=== PATIENT | female | born 1960 | race Caucasian/White ===

== ENCOUNTER 2020-08-25 18:11 | Emergency (ER) | payer OTHER, SELFPAY ==
--- NOTE | ~2020-08-25 | CT_ITS ---
EXAMINATION: CT HEAD WITHOUT CONTRAST CT CERVICAL SPINE WITHOUT CONTRAST CLINICAL INFORMATION: Trauma COMPARISON: None. TECHNIQUE: Multidetector CT imaging of the head and cervical spine was performed without the use of intravenous contrast. Multiplanar reformats are reviewed. This CT examination was performed using dose optimization techniques as appropriate, variously including the following: *Automated exposure control *Adjustment of mA and/or kV according to patient size (this includes techniques or standardized protocols for targeted exams where dose is matched to indication/reason for exam; i.e. extremities or head) *Use of iterative reconstruction technique DLP: 964 mGy-cm. FINDINGS: Acute subdural hematoma present along the right falx cerebri from the mid frontal convexity posteriorly, extending along the superior aspect of the right tentorium. The falcine component measures up to 6 mm in thickness, while the tentorial component measures up to 3 mm in thickness. No subarachnoid or intraparenchymal hemorrhage. There is no evidence of acute territorial infarction. No abnormal mass effect or midline shift is seen. Gonzalez to white matter differentiation is well preserved. No extra-axial fluid collections are identified. The ventricles are normal in size. There is no abnormal attenuation within the brain parenchyma. The osseous structures and soft tissues are normal. The mastoid air cells and visualized portions of the paranasal sinuses are well-aerated. Atlantooccipital alignment is maintained. The vertebral bodies and posterior elements align normally. No acute fracture or subluxation. Vertebral body heights are preserved. Small endplate osteophytes present throughout the cervical spine. Loss of disc space height present at C4-C5, C5-C6 and C6-C7. There is mild bilateral foraminal narrowing at C4-C5 and C5-C6 and mild left foraminal narrowing at C6-C7.. The paraspinal soft tissues are unremarkable. The imaged lung apices are clear CT/CT cervical spine wo con IMPRESSION: * Acute subdural hematoma along the right falx and superior to the right tentorium as described. * No subarachnoid or intraparenchymal hemorrhage. * No cervical spine fracture or malalignment. This critical result was discussed with Nishant Trinh MD at 08/25/2020 9:17 PM and it was ascertained that the content and urgency of the report was understood at the time of direct communication.
--- NOTE | ~2020-08-25 | XR_ITS ---
EXAMINATION: XR CHEST CLINICAL INFORMATION: Fall. COMPARISON: None TECHNIQUE: Frontal view of the chest was obtained. FINDINGS: The lungs are clear. The cardiomediastinal silhouette is normal in size. There is no pleural effusion or pneumothorax. No acute osseous abnormality. XR/XR chest 1V IMPRESSION: No acute cardiopulmonary findings.
[2020-08-25 18:44] VITALS: RESP 22; BMI 19.7
[2020-08-25] MEDS: LORazepam 2 MG/ML VIAL IM (18:44)
--- NOTE | 2020-08-25 18:57 | ECG_ITS ---
Test Reason : AMS Blood Pressure : / mmHG Vent. Rate : 078 BPM Atrial Rate : 078 BPM P-R Int : 168 ms QRS Dur : 090 ms QT Int : 386 ms P-R-T Axes : 071 067 055 degrees QTc Int : 440 ms Normal sinus rhythm Possible Left atrial enlargement Borderline ECG No previous ECGs available Referred By: Nishant Trinh Electronically Signed By:DARIUS DAY
[2020-08-25] MEDS: Haloperidol Lactate 5 MG/ML VIAL IM (19:09)
--- NOTE | 2020-08-25 19:11 | PC.NURSE ---
Pt medicated with Ativan and Haldol to facilitate a CT due to contusion/bleeding from right advent. Pt remains agitated and altered at this time, hitting and grabbing at staff. Although orders are in for pt, unable to complete any at this time due to mental status.
[2020-08-25 19:30] VITALS: RESP 20
[2020-08-25 20:06] LABS: MANUAL DIFF FLAG NO
[2020-08-25 20:08] LABS: Basophils Percent Auto 0.9 % (0-2); Eosinophils Percent Auto 0.9 % (0-4); Hematocrit 38.5 % (37-47); Hemoglobin 12.4 g/dl (12.0-16.0); Lymphocytes Percent Auto 21.6 % (20-40); Mean Corpuscular HGB Conc 32.2 g/dl (31.0-35.0); Mean Corpuscular Hemoglobin 30.9 pg (27.0-33.0); Mean Platelet Volume 10.1 fL (9.4-12.3); Monocytes Absolute Auto 0.3 X10*3/uL (0.1-1.2); Monocytes Percent Auto 7.1 % (2-11); Neutrophils Absolute Auto 3.1 X10*3/uL (2.0-8.3); Neutrophils Percent Auto 69.5 % (45-73); Platelet Count 262 X10*3/uL (160-400); Red Blood Count 4.01 X10*6/uL (4.20-5.50); Red Cell Distribution Width 13.9 % (11.0-16.0); White Blood Count 4.5 X10*3/uL (4.8-10.8)
[2020-08-25 20:25] LABS: COVID-19 Test Negative (Negative); Ethanol 339 mg/dL
[2020-08-25 20:42] LABS: Alanine Aminotransferase 9 U/L (0-31); Alkaline Phosphatase 65 U/L (39-117); Anion Gap 22 (12-20); Aspartate Amino Transferase 27 U/L (5-31); Bilirubin Direct < 0.2 mg/dL (0.0-0.5); Bilirubin Total < 0.2 mg/dL (0.0-1.0); Blood Urea Nitrogen 17 mg/dL (9-16); Calcium 8.6 mg/dL (8.4-10.2); Carbon Dioxide 19 mmol/L (22-29); Chloride 101 mmol/L (96-108); Creatinine Clr Calc Pharmacy 61.5; Estimated Glomerular Filt Rate > 60; Glucose Random 101 mg/dL (60-115); Potassium 3.9 mmol/L (3.3-5.1); Sodium 138 mmol/L (135-145); Total Protein 6.8 g/dL (6.5-8.0)
[2020-08-25 21:00] VITALS: BP 95/47; PULSE 75; RESP 16; O2SAT 94
--- NOTE | 2020-08-25 21:06 | PC.NURSE ---
Pt returns from CT, remains drowsy at this time. EKG obtained by this RN. Continue to monitor.
--- NOTE | 2020-08-25 21:15 | PC.NURSE ---
Cervical collar applied.
[2020-08-25] MEDS: ondansetron HCL 4 MG/2 ML VIAL IVPUSH (21:24)
[2020-08-25 21:26] LABS: INTERNATIONAL NORM RATIO 1.1 (0.9-1.1); Prothrombin Time 12.5 SEC (10.8-13.0)
[2020-08-25 21:28] LABS: Partial Thromboplastin Time 36.9 SEC (24.1-38.0)
--- NOTE | 2020-08-25 21:36 | ED.ALCOHOL ---
HPI - Alcohol General Chief Complaint: ETOH/Substance Use Stated Complaint: etoh, fall Time Seen by Provider: 08/25/20 18:38 Source: EMS Mode of arrival: EMS Limitations: altered mental status History of Present Illness HPI narrative: Patient intoxicated was found by a bystander lying in the yard of somebody else house with small abrasion on the right side of forehead very intoxicated on arrival unwilling to bring forth any information about her agitated and combative with the staff no other details available MD complaint: alcohol intoxication Related Data Allergies Allergy/AdvReac Type Severity Reaction Status Date / Time No Known Allergies Allergy Verified 08/25/20 18:39 Review of Systems Review of Systems: Yes Unobtainable due to mental status [facility] Past Medical History Source: unable to obtain Medical History (Updated 08/25/20 @ 21:53 by Nishant Trinh MD) No known health problems Social History Social History Advance Directives: No Physical Exam Vital Signs: Vital Signs: Last Vital Signs Pulse 76 08/25/20 21:47 Resp 14 08/25/20 21:47 BP 109/67 08/25/20 21:47 Pulse Ox 94 08/25/20 21:47 Body Mass Index 19.7 Const: General: well developed, alert, awake, combative and intoxicated appearing HENMT: Head: Yes No palpable skull fracture present, Yes normocephalic and Yes abrasion (Right frontal) Head images: 1. Abrasion right frontal area Ears: hearing grossly normal bilaterally, external ears normal and TM's normal bilaterally General nose exam: Normal external nose present Mouth: Normal oral and palatal mucosa present and oropharynx normal Eyes: General: appearance normal, both eyes and all related structures Conjunctivae: conjunctivae normal Sclerae: sclerae normal Pupils: Equal, round and reactive pupils present EOM: EOMs intact bilaterally Neck: Neck: Yes normal visual inspection, Yes full ROM, No midline deformity and No tender Carotids: normal carotid upstroke Chest: Chest palpation & inspection: normal inspection of the chest and normal palpation of entire chest wall Resp: Effort & Inspection: normal respiratory effort Auscultation: clear to auscultation bilaterally Cardio: Palpation: normal PMI Rate: regular rate Rhythm: regular rhythm Heart sounds: S1 normal heart sound present and S2 normal heart sound present Peripheral pulses: Peripheral pulses 2+ throughout GI: Inspection: Yes normal to inspection Palpation (GI): Soft to palpation, nontender, not rigid and no hepatomegaly Auscultation: normal bowel sounds : General: Yes no CVA tenderness Back/Spine/Pelvis: Back: no CVA tenderness Thoracic/Lumbar Spine: thoracic and lumbar spine normal to inspection, No thoracic spinal tenderness and No lumbar spinal tenderness Skin: General skin exam: no rashes or lesions noted Neuro: Other: Limited exam because of patient been very combative no focal deficit noticed General: moves all extremities and no focal motor deficits Cranial nerves: Yes Equal, round and reactive pupils present Extrem: General: Yes normal to inspection and Yes full ROM MDM - Alcohol MDM Narrative Medical decision making narrative: Patient alcohol intoxicated details of past medical history and scenario is not very clear patient was very intoxicated and agitated on arrival had to give 5 mg of Haldol and 2 mg of Ativan IM, CT scan of the head showed acute subdural bleed infarcts cerebri and right tentorium without any significant midline shift. Patient alcohol level is elevated 339. No other significant injuries notice fast examination of abdomen is negative chest x-ray also negative case discussed with trauma surgeon Dr. Bravo will take the patient for evaluation Lab Data Attestation: I reviewed the patient's lab results. Result diagrams: 08/25/20 19:59 08/25/20 19:59 Labs: Lab Results 08/25/20 08/25/20 08/25/20 Range/Units 19:59 19:59 19:59 WBC 4.5 L (4.8-10.8) X10*3/uL RBC 4.01 L (4.20-5.50) X10*6/uL Hgb 12.4 (12.0-16.0) g/dl Hct 38.5 (37-47) % MCV 96.0 (80-98) fL MCH 30.9 (27.0-33.0) pg MCHC 32.2 (31.0-35.0) g/dl RDW 13.9 (11.0-16.0) % Plt Count 262 (160-400) X10*3/uL MPV 10.1 (9.4-12.3) fL Immature Gran % (Auto) 0.0 (0.0-0.4) % Neut % (Auto) 69.5 (45-73) % Lymph % (Auto) 21.6 (20-40) % [place] % (Auto) 7.1 (2-11) % Eos % (Auto) 0.9 (0-4) % Baso % (Auto) 0.9 (0-2) % Lymph # (Auto) 1.0 L (1.2-4.9) X10*3/uL [place] # (Auto) 0.3 (0.1-1.2) X10*3/uL Eos # (Auto) 0.0 (0.0-0.4) X10*3/uL Baso # (Auto) 0.0 (0.0-0.2) X10*3/uL Abs Immat Gran (auto) 0.00 (0.00-0.03) X10*3/uL Absolute Neuts (auto) 3.1 (2.0-8.3) X10*3/uL Absolute Nucleated RBC 0.000 (0.0-0.012) X10*3/uL Nucleated RBC % (auto) 0.0 (0.0-0.2) /100WBC PT (10.8-13.0) SEC INR (0.9-1.1) APTT (24.1-38.0) SEC Hold Blue Top Sodium 138 (135-145) mmol/L Potassium 3.9 (3.3-5.1) mmol/L Chloride 101 (96-108) mmol/L Carbon Dioxide 19 L (22-29) mmol/L Anion Gap 22 H (12-20) BUN 17 H (9-16) mg/dL Creatinine 0.81 (0.5-1.4) mg/dL Estim Creat Clear Calc 61.5 Estimated GFR > 60 Random Glucose 101 (60-115) mg/dL Calcium 8.6 (8.4-10.2) mg/dL Total Bilirubin < 0.2 (0.0-1.0) mg/dL Direct Bilirubin < 0.2 (0.0-0.5) mg/dL AST 27 (5-31) U/L ALT 9 (0-31) U/L Alkaline Phosphatase 65 (39-117) U/L Total Protein 6.8 (6.5-8.0) g/dL Albumin 4.0 (3.5-5.0) g/dL Ethyl Alcohol mg/dL COVID-19 (BASSEM) Negative (Negative) COVID-19 Clin Com See Note 08/25/20 08/25/20 Range/Units 19:59 19:59 WBC (4.8-10.8) X10*3/uL RBC (4.20-5.50) X10*6/uL Hgb (12.0-16.0) g/dl Hct (37-47) % MCV (80-98) fL MCH (27.0-33.0) pg MCHC (31.0-35.0) g/dl RDW (11.0-16.0) % Plt Count (160-400) X10*3/uL MPV (9.4-12.3) fL Immature Gran % (Auto) (0.0-0.4) % Neut % (Auto) (45-73) % Lymph % (Auto) (20-40) % [place] % (Auto) (2-11) % Eos % (Auto) (0-4) % Baso % (Auto) (0-2) % Lymph # (Auto) (1.2-4.9) X10*3/uL [place] # (Auto) (0.1-1.2) X10*3/uL Eos # (Auto) (0.0-0.4) X10*3/uL Baso # (Auto) (0.0-0.2) X10*3/uL Abs Immat Gran (auto) (0.00-0.03) X10*3/uL Absolute Neuts (auto) (2.0-8.3) X10*3/uL Absolute Nucleated RBC (0.0-0.012) X10*3/uL Nucleated RBC % (auto) (0.0-0.2) /100WBC PT 12.5 (10.8-13.0) SEC INR 1.1 (0.9-1.1) APTT 36.9 (24.1-38.0) SEC Hold Blue Top SEE NOTE Sodium (135-145) mmol/L Potassium (3.3-5.1) mmol/L Chloride (96-108) mmol/L Carbon Dioxide (22-29) mmol/L Anion Gap (12-20) BUN (9-16) mg/dL Creatinine (0.5-1.4) mg/dL Estim Creat Clear Calc Estimated GFR Random Glucose (60-115) mg/dL Calcium (8.4-10.2) mg/dL Total Bilirubin (0.0-1.0) mg/dL Direct Bilirubin (0.0-0.5) mg/dL AST (5-31) U/L ALT (0-31) U/L Alkaline Phosphatase (39-117) U/L Total Protein (6.5-8.0) g/dL Albumin (3.5-5.0) g/dL Ethyl Alcohol 339 H* mg/dL COVID-19 (BASSEM) (Negative) COVID-19 Clin Com Imaging Data CT scan - head: Radiologist's impression: EXAMINATION: CT HEAD WITHOUT CONTRAST CT CERVICAL SPINE WITHOUT CONTRAST CLINICAL INFORMATION: Trauma COMPARISON: None. TECHNIQUE: Multidetector CT imaging of the head and cervical spine was performed without the use of intravenous contrast. Multiplanar reformats are reviewed. This CT examination was performed using dose optimization techniques as appropriate, variously including the following: *Automated exposure control *Adjustment of mA and/or kV according to patient size (this includes techniques or standardized protocols for targeted exams where dose is matched to indication/reason for exam; i.e. extremities or head) *Use of iterative reconstruction technique DLP: 964 mGy-cm. FINDINGS: Acute subdural hematoma present along the right falx cerebri from the mid frontal convexity posteriorly, extending along the superior aspect of the right tentorium. The falcine component measures up to 6 mm in thickness, while the tentorial component measures up to 3 mm in thickness. No subarachnoid or intraparenchymal hemorrhage. There is no evidence of acute territorial infarction. No abnormal mass effect or midline shift is seen. Gonzalez to white matter differentiation is well preserved. No extra-axial fluid collections are identified. The ventricles are normal in size. There is no abnormal attenuation within the brain parenchyma. The osseous structures and soft tissues are normal. The mastoid air cells and visualized portions of the paranasal sinuses are well-aerated. Atlantooccipital alignment is maintained. The vertebral bodies and posterior elements align normally. No acute fracture or subluxation. Vertebral body heights are preserved. Small endplate osteophytes present throughout the cervical spine. Loss of disc space height present at C4-C5, C5-C6 and C6-C7. There is mild bilateral foraminal narrowing at C4-C5 and C5-C6 and mild left foraminal narrowing at C6-C7.. The paraspinal soft tissues are unremarkable. The imaged lung apices are clear CT/CT head/brain wo con IMPRESSION: * Acute subdural hematoma along the right falx and superior to the right tentorium as described. * No subarachnoid or intraparenchymal hemorrhage. * No cervical spine fracture or malalignment. This critical result was discussed with Nishant Trinh MD at 08/25/2020 9:17 PM and it was ascertained that the content and urgency of the report was understood at the time of direct communication. Dictated By:GARCÍA MONTEZ MDSigned By:<Electronically signed by GARCÍA MONTEZ MD in OV> Chest x-ray: Radiologist's impression: [address] [id number] ReportSigned Patient: Marc Guzman#: [id number]: 1960cct:[id number]/Sex: 60 / FADM Date: 08/25/20Loc: HO.EDAttending Dr: Ordering Physician: Nishant Trinh MD Date of Service: 08/25/20 Procedure(s): XR chest 1V Accession Number(s): [id number] cc: Nishant Trinh MD~ EXAMINATION: XR CHEST CLINICAL INFORMATION: Fall. COMPARISON: None TECHNIQUE: Frontal view of the chest was obtained. FINDINGS: The lungs are clear. The cardiomediastinal silhouette is normal in size. There is no pleural effusion or pneumothorax. No acute osseous abnormality. XR/XR chest 1V IMPRESSION: No acute cardiopulmonary findings. ECG Data Attestation: I personally reviewed and interpreted this ECG as follows: Interpretation: Normal sinus rhythm ventricular rate 78 beats per minute no acute ST T wave changes normal intervals no acute ischemia Discharge Plan Discharge Clinical Impression: Alcoholic intoxication Qualifiers: Complication of substance-induced condition: uncomplicated Qualified Code(s): F10.920 - Alcohol use, unspecified with intoxication, uncomplicated Subdural hemorrhage following injury Qualifiers: Encounter type: initial encounter Patient Disposition: [facility] Transfer Details: Patient to be transferred to [facility] for further evaluation
[2020-08-25] MEDS: 0.9 % Sodium Chloride 1,000 ML 999 ML IVCONT (21:44)
--- NOTE | 2020-08-25 21:44 | PC.NURSE ---
Plan to transfer to [facility] due to subdural bleed. 2 IVs established, IVF infusing, pt medicated with Zofran due to N/V. Pt remains very drowsy, unable to answer questions, but grinding teeth/clenching jaw at times. VSS, O2 sat 94% on RA. VSS. CXR at bedside. Awaiting EMS for transfer.
[2020-08-25 21:47] VITALS: BP 109/67; PULSE 76; RESP 14; O2SAT 94
--- NOTE | 2020-08-25 21:52 | PC.NURSE ---
This RN calling [facility] to give nurse to nurse report prior to transfer. EMS en route.
--- NOTE | 2020-08-25 22:01 | PC.NURSE ---
Report given to MISHA Burris at [facility]. EMS at bedside for transport.
--- NOTE | 2020-08-25 22:12 | PC.NURSE ---
16F vasquez inserted by MISHA Marshall. 1000 ml of UO noted.
== END 2020-08-25 22:13 | disposition short-term general hospital (02) ==
PROVIDERS: Emergency Provider Internal Medicine
DX: S06.5X9A Traumatic subdural hemorrhage with loss of consciousness of unspecified duration, initial encounter (principal); S00.81XA Abrasion of other part of head, initial encounter; X58.XXXA Exposure to other specified factors, initial encounter; F10.920 Alcohol use, unspecified with intoxication, uncomplicated; Y90.8 Blood alcohol level of 240 mg/100 ml or more; R45.1 Restlessness and agitation; Z20.822 Contact with and (suspected) exposure to COVID-19; Y93.9 Activity, unspecified; Y92.096 Garden or yard of other non-institutional residence as the place of occurrence of the external cause; Y99.9 Unspecified external cause status
CPT/HCPCS: 36415; 51702; 70450; 71045; 72125; 80048; 80076; 80320; 85025; 85610; 85730; 87635; 93005; 96361; 96372; 96374; 99285; J2060; J2405

== ENCOUNTER 2020-09-03 18:28 | Emergency (ER) | payer OTHER, SELFPAY ==
--- NOTE | ~2020-09-03 | CT_ITS ---
EXAMINATION: CT HEAD WITHOUT CONTRAST CLINICAL INFORMATION: Altered mental status. COMPARISON: CT head August 25, 2020 TECHNIQUE: Contiguous axial imaging was performed from the skull base to vertex without intravenous administration of contrast. This CT examination was performed using dose optimization techniques as appropriate, variously including the following: *Automated exposure control *Adjustment of mA and/or kV according to patient size (this includes techniques or standardized protocols for targeted exams where dose is matched to indication/reason for exam; i.e. extremities or head) *Use of iterative reconstruction technique DLP: 670 mGy-cm FINDINGS: Exam limited. There is motion on all slice images. On the CT study of August 25, 2020 acute subdural hematoma present along the right falx and right tentorium. This hemorrhage is likely still present and unchanged since prior study. Coronal image 145/203 series 7. Would recommend repeat exam when patient able to tolerate. CT/CT head/brain wo con IMPRESSION: Exam limited by patient motion. Redemonstration of intracranial hemorrhage along the right falx and right tentorium similar to CT study of August 25, 2020. Would recommend repeat exam when patient able to tolerate.
--- NOTE | ~2020-09-03 | XR_ITS ---
EXAMINATION: XR CHEST CLINICAL INFORMATION: Altered mental status COMPARISON: Chest x-ray on 08/25/2020 TECHNIQUE: Frontal view of the chest was obtained. FINDINGS: No significant abnormality is noted involving the heart, lungs, mediastinum, bony thorax or soft tissues. XR/XR chest 1V IMPRESSION: Unremarkable examination.
[2020-09-03 18:51] VITALS: RESP 18; BMI 26.6
--- NOTE | 2020-09-03 18:54 | PC.NURSE ---
emergency contact ba [phone]
--- NOTE | 2020-09-03 19:09 | ECG_ITS ---
Test Reason : FALL Blood Pressure : / mmHG Vent. Rate : 088 BPM Atrial Rate : 088 BPM P-R Int : 132 ms QRS Dur : 088 ms QT Int : 358 ms P-R-T Axes : 063 064 061 degrees QTc Int : 433 ms Normal sinus rhythm Normal ECG No previous ECGs available Referred By: Bess Leone Electronically Signed By:Jer Armendariz
--- NOTE | 2020-09-03 19:16 | PC.NURSE ---
and daughter calling, daughter and en route to try to comfort pt.
--- NOTE | 2020-09-03 19:37 | PC.NURSE ---
IV established, labs and EKG obtained. Daughter at bedside comforting pt.
[2020-09-03 19:41] LABS: MANUAL DIFF FLAG NO
[2020-09-03 19:49] LABS: Basophils Absolute Auto 0.1 X10*3/uL (0.0-0.2); Basophils Percent Auto 0.9 % (0-2); Eosinophils Absolute Auto 0.1 X10*3/uL (0.0-0.4); Eosinophils Percent Auto 1.2 % (0-4); Hematocrit 40.5 % (37-47); Hemoglobin 13.1 g/dl (12.0-16.0); Imm Gran Abs Auto 0.02 X10*3/uL (0.00-0.03); Imm Gran Pct Auto 0.3 % (0.0-0.4); Lymphocytes Absolute Auto 1.6 X10*3/uL (1.2-4.9); Lymphocytes Percent Auto 27.7 % (20-40); Mean Corpuscular HGB Conc 32.3 g/dl (31.0-35.0); Mean Corpuscular Hemoglobin 31.3 pg (27.0-33.0); Mean Corpuscular Volume 96.7 fL (80-98); Mean Platelet Volume 9.9 fL (9.4-12.3); Monocytes Absolute Auto 0.6 X10*3/uL (0.1-1.2); Monocytes Percent Auto 9.8 % (2-11); Neutrophils Absolute Auto 3.5 X10*3/uL (2.0-8.3); Neutrophils Percent Auto 60.1 % (45-73); Platelet Count 309 X10*3/uL (160-400); Red Blood Count 4.19 X10*6/uL (4.20-5.50); Red Cell Distribution Width 14.3 % (11.0-16.0); White Blood Count 5.7 X10*3/uL (4.8-10.8)
--- NOTE | 2020-09-03 19:53 | PC.NURSE ---
CT and XRay obtained. Pt remains very anxious but able to be calmed down by daughter at bedside.
[2020-09-03 20:04] LABS: Ethanol 273 mg/dL
[2020-09-03 20:10] LABS: Alanine Aminotransferase 14 U/L (0-31); Albumin Level 4.4 g/dL (3.5-5.0); Alkaline Phosphatase 61 U/L (39-117); Anion Gap 16 (12-20); Aspartate Amino Transferase 24 U/L (5-31); Bilirubin Direct < 0.2 mg/dL (0.0-0.5); Bilirubin Total 0.4 mg/dL (0.0-1.0); Blood Urea Nitrogen 8 mg/dL (9-16); Calcium 9.3 mg/dL (8.4-10.2); Carbon Dioxide 25 mmol/L (22-29); Chloride 106 mmol/L (96-108); Creatinine Clr Calc Pharmacy 69.3; Estimated Glomerular Filt Rate > 60; Glucose Random 95 mg/dL (60-115); Potassium 3.8 mmol/L (3.3-5.1); Sodium 143 mmol/L (135-145); Total Protein 7.6 g/dL (6.5-8.0)
[2020-09-03 20:13] LABS: Troponin-I High Sensitivity 6.8 ng/L (<3.5-17.0)
[2020-09-03 21:28] LABS: Glucose Urine UA NEG (NEG); Leukocyte Esterase Urine NEG (NEG); Nitrite Urine NEG (NEG); PH 6.5 (5.0-8.0); Specific Gravity - Urine <= 1.005 (1.005-1.025); Urine Blood NEG (NEG); Urine Ketones NEG (NEG); Urine Protein NEG (NEG-TRACE)
[2020-09-03 21:30] LABS: Appearance Urine CLEAR; Color Urine STRAW
--- NOTE | 2020-09-03 21:42 | ED.PSYCH ---
HPI - Psych General Chief Complaint: Psychiatric Symptoms Stated Complaint: combative SI Time Seen by Provider: 09/03/20 19:00 History of Present Illness HPI Narrative: Patient history of depression history of subdural hematoma. Was seen at [facility] about 10 days ago. Transfer to [facility]. Patient has a long history of alcohol abuse. Agitated. Refused to answer question. Related Data Home Medications Medication Instructions Recorded Confirmed melatonin 5 mg PO BEDTIME PRN 04/17/20 04/17/20 Allergies Allergy/AdvReac Type Severity Reaction Status Date / Time clonazepam Allergy Unknown amnesia, Verified 04/04/19 00:00 suicidal thoughts sertraline [Zoloft] AdvReac Unknown Verified 04/04/19 00:00 Wellbutrin Allergy Unknown Uncoded 04/04/19 00:00 ambien AdvReac Unknown night Uncoded 04/04/19 00:00 mare, suicidal thoughts Review of Systems Review of Systems: Unable to obtain review systems secondary to patient condition PMFSH Past Medical History Medical History Cataract Surgical History Hx of section Social History Social History Household Members: Spouse, Children and Other Smoking Status: Never smoker Advance Directives: No Physical Exam Vital Signs: Vital Signs: Last Vital Signs Temp 99.5 F 09/03/20 22:10 Pulse 76 09/03/20 22:10 Resp 18 09/03/20 22:10 BP 134/65 09/03/20 22:10 Pulse Ox 99 09/03/20 22:10 Body Mass Index 26.6 Appearance: Agitated Eyes: Pupils equal, round and reactive to light. ENT: Pharynx normal. Neck: Normal inspection. Neck supple. No lymph nodes noted. No crepitus CVS: Normal heart rate and rhythm. Pulses normal. Normal S1 and S2 Respiratory: No respiratory distress. Breath sounds normal. No Wheezing. No rales Abdomen: Soft and nontender. No rigidity. No distention. good BS x4 Skin: Skin warm and dry. Normal skin color. Normal skin turgor. Extremities: No lower extremity edema. Neurovascular intact to all extremities. No Lacerations. No Rash Neuro: Ambulating but refused to answer questions, as stated Course Course Course Narrative: Patient's family's arrival caused patient to calm down. Grossly appear intoxicated. Will get crisis eval to evaluate patient for agitation. CT scan of the head was done. Unfortunately patient had some small motion artifact. Grossly there is no worsening bleeding. It is insistent with patient's previous subdural hematoma from 10 days ago. Currently in stable condition. MDM - Psych MDM Narrative Medical decision making narrative: Patient CT scan of the head did not show any worsening in bleeding. Grossly intoxicated by lab. Family present to calm patient down. Patient claims she is not suicidal not homicidal. She did not have any syncopal episode today. She did not fall today. There was no head trauma. Patient per EMS was running in the [employer]. Patient currently is now awake alert oriented. Has a safe home to go to. Wants to go home with family. Warned that continuing to drink can cause her demise. She almost previously with an intracranial bleed only 10 days ago. Patient states understanding. Family will monitor patient closely. Family want patient to go home. In stable condition. Lab Data Result diagrams: 09/03/20 19:28 09/03/20 19:28 Labs: Lab Results 09/03/20 09/03/20 09/03/20 Range/Units 19:28 19:28 19:28 WBC 5.7 (4.8-10.8) X10*3/uL RBC 4.19 L (4.20-5.50) X10*6/uL Hgb 13.1 (12.0-16.0) g/dl Hct 40.5 (37-47) % MCV 96.7 (80-98) fL MCH 31.3 (27.0-33.0) pg MCHC 32.3 (31.0-35.0) g/dl RDW 14.3 (11.0-16.0) % Plt Count 309 (160-400) X10*3/uL MPV 9.9 (9.4-12.3) fL Immature Gran % (Auto) 0.3 (0.0-0.4) % Neut % (Auto) 60.1 (45-73) % Lymph % (Auto) 27.7 (20-40) % Eagle % (Auto) 9.8 (2-11) % Eos % (Auto) 1.2 (0-4) % Baso % (Auto) 0.9 (0-2) % Lymph # (Auto) 1.6 (1.2-4.9) X10*3/uL Eagle # (Auto) 0.6 (0.1-1.2) X10*3/uL Eos # (Auto) 0.1 (0.0-0.4) X10*3/uL Baso # (Auto) 0.1 (0.0-0.2) X10*3/uL Abs Immat Gran (auto) 0.02 (0.00-0.03) X10*3/uL Absolute Neuts (auto) 3.5 (2.0-8.3) X10*3/uL Absolute Nucleated RBC 0.000 (0.0-0.012) X10*3/uL Nucleated RBC % (auto) 0.0 (0.0-0.2) /100WBC Sodium 143 (135-145) mmol/L Potassium 3.8 (3.3-5.1) mmol/L Chloride 106 (96-108) mmol/L Carbon Dioxide 25 (22-29) mmol/L Anion Gap 16 (12-20) BUN 8 L (9-16) mg/dL Creatinine 0.84 (0.5-1.4) mg/dL Estim Creat Clear Calc 69.3 Estimated GFR > 60 Random Glucose 95 (60-115) mg/dL Calcium 9.3 (8.4-10.2) mg/dL Total Bilirubin 0.4 (0.0-1.0) mg/dL Direct Bilirubin < 0.2 (0.0-0.5) mg/dL AST 24 (5-31) U/L ALT 14 (0-31) U/L Alkaline Phosphatase 61 (39-117) U/L Troponin I High Sens 6.8 (<3.5-17.0) ng/L Total Protein 7.6 (6.5-8.0) g/dL Albumin 4.4 (3.5-5.0) g/dL Urine Color Urine Appearance Urine pH (5.0-8.0) Ur Specific Hart (1.005-1.025) Urine Protein (NEG-TRACE) MG/DL Urine Glucose (UA) (NEG) MG/DL Urine Ketones (NEG) MG/DL Urine Blood (NEG) Urine Nitrite (NEG) Ur Leukocyte Esterase (NEG) Urine Opiates Screen (Not Detect) Ur Barbiturates Screen (Not Detect) Ur Phencyclidine Scrn (Not Detect) Ur Amphetamines Screen (Not Detect) U Benzodiazepines Scrn (Not Detect) Urine Cocaine Screen (Not Detect) U Marijuana (THC) Screen (Not Detect) Ethyl Alcohol mg/dL 09/03/20 09/03/20 09/03/20 Range/Units 19:28 21:19 21:19 WBC (4.8-10.8) X10*3/uL RBC (4.20-5.50) X10*6/uL Hgb (12.0-16.0) g/dl Hct (37-47) % MCV (80-98) fL MCH (27.0-33.0) pg MCHC (31.0-35.0) g/dl RDW (11.0-16.0) % Plt Count (160-400) X10*3/uL MPV (9.4-12.3) fL Immature Gran % (Auto) (0.0-0.4) % Neut % (Auto) (45-73) % Lymph % (Auto) (20-40) % Eagle % (Auto) (2-11) % Eos % (Auto) (0-4) % Baso % (Auto) (0-2) % Lymph # (Auto) (1.2-4.9) X10*3/uL Eagle # (Auto) (0.1-1.2) X10*3/uL Eos # (Auto) (0.0-0.4) X10*3/uL Baso # (Auto) (0.0-0.2) X10*3/uL Abs Immat Gran (auto) (0.00-0.03) X10*3/uL Absolute Neuts (auto) (2.0-8.3) X10*3/uL Absolute Nucleated RBC (0.0-0.012) X10*3/uL Nucleated RBC % (auto) (0.0-0.2) /100WBC Sodium (135-145) mmol/L Potassium (3.3-5.1) mmol/L Chloride (96-108) mmol/L Carbon Dioxide (22-29) mmol/L Anion Gap (12-20) BUN (9-16) mg/dL Creatinine (0.5-1.4) mg/dL Estim Creat Clear Calc Estimated GFR Random Glucose (60-115) mg/dL Calcium (8.4-10.2) mg/dL Total Bilirubin (0.0-1.0) mg/dL Direct Bilirubin (0.0-0.5) mg/dL AST (5-31) U/L ALT (0-31) U/L Alkaline Phosphatase (39-117) U/L Troponin I High Sens (<3.5-17.0) ng/L Total Protein (6.5-8.0) g/dL Albumin (3.5-5.0) g/dL Urine Color STRAW Urine Appearance CLEAR Urine pH 6.5 (5.0-8.0) Ur Specific Hart <= 1.005 (1.005-1.025) Urine Protein NEG (NEG-TRACE) MG/DL Urine Glucose (UA) NEG (NEG) MG/DL Urine Ketones NEG (NEG) MG/DL Urine Blood NEG (NEG) Urine Nitrite NEG (NEG) Ur Leukocyte Esterase NEG (NEG) Urine Opiates Screen Not Detected (Not Detect) Ur Barbiturates Screen Not Detected (Not Detect) Ur Phencyclidine Scrn Not Detected (Not Detect) Ur Amphetamines Screen Not Detected (Not Detect) U Benzodiazepines Scrn Not Detected (Not Detect) Urine Cocaine Screen Not Detected (Not Detect) U Marijuana (THC) Screen Not Detected (Not Detect) Ethyl Alcohol 273 mg/dL Discharge Plan Discharge Clinical Impression: Subdural bleeding, Alcohol intoxication Patient Disposition: Home, Self-Care Instructions: Intracranial Hematoma (ED), Alcohol Intoxication (ED) Additional Instructions: Please stop drinking alcohol. Drinking excessive alcohol can kill you. Your the fallen in the past and has cause a bleed in your head. The next time he could . Please go to detox Prescriptions: No Action melatonin 5 mg Tablet 5 mg PO BEDTIME PRN (Reason: Insomnia) RF: 0 Referrals: Az Verduzco MD [Primary Care Provider] - 2 days
[2020-09-03 22:03] LABS: Amphetamine Screen Urine Not Detected (Not Detect); Barbiturates, Urine Not Detected (Not Detect); Benzodiazepines Screen Urine Not Detected (Not Detect); Cannabinoid Screen Urine Not Detected (Not Detect); Cocaine Screen Urine Not Detected (Not Detect); Opiate Screen Urine Not Detected (Not Detect); Phencyclidine Screen Urine Not Detected (Not Detect)
[2020-09-03 22:10] VITALS: BP 134/65; PULSE 76; RESP 18; TEMP 37.5; O2SAT 99
== END 2020-09-03 22:40 | disposition home or self-care (01) ==
PROVIDERS: Emergency Provider Emergency Medicine Emergency Medical Services; PCP Internal Medicine
DX: I62.00 Nontraumatic subdural hemorrhage, unspecified (principal); F33.1 Major depressive disorder, recurrent, moderate; R45.851 Suicidal ideations; F10.129 Alcohol abuse with intoxication, unspecified; Y90.8 Blood alcohol level of 240 mg/100 ml or more; R41.82 Altered mental status, unspecified; Z79.899 Other long term (current) drug therapy
CPT/HCPCS: 36415; 70450; 71045; 80053; 80076; 80307; 80320; 81003; 84484; 85025; 93005; 99283

== ENCOUNTER 2021-04-14 19:14 | Emergency (ER) | payer OTHER, SELFPAY ==
--- NOTE | ~2021-04-14 | XR_ITS ---
EXAMINATION: XR CHEST CLINICAL INFORMATION: Bilateral posterior rib pain COMPARISON: 09/03/2020 TECHNIQUE: Frontal view of the chest was obtained. FINDINGS: No significant abnormality is noted involving the heart, lungs, mediastinum, bony thorax or soft tissues. XR/XR chest 1V IMPRESSION: No acute pulmonary disease.
--- NOTE | ~2021-04-14 | CT_ITS ---
EXAMINATION: CT HEAD WITHOUT CONTRAST CT CERVICAL SPINE WITHOUT CONTRAST CLINICAL INFORMATION: Fall, history of brain bleed with ethanol use. COMPARISON: CT head dated from 09/03/2020. CT head and cervical spine dated from 08/25/2020. TECHNIQUE: Contiguous axial imaging was performed from the skull base to vertex without intravenous administration of contrast. Contiguous axial imaging was performed from the upper chest through the skull base without intravenous administration of contrast. Coronal and sagittal reformats were obtained at the acquisition workstation. This CT examination was performed using dose optimization techniques as appropriate, variously including the following: *Automated exposure control *Adjustment of mA and/or kV according to patient size (this includes techniques or standardized protocols for targeted exams where dose is matched to indication/reason for exam; i.e. extremities or head) *Use of iterative reconstruction technique DLP: 293 mGy-cm FINDINGS: Head: There is no evidence of acute intracranial hemorrhage or edematous territorial infarction. There is no abnormal attenuation within the brain parenchyma. Gonzalez-white matter differentiation is preserved. The ventricles are normal in size and configuration. No evidence for obstructive hydrocephalus. No abnormal mass effect or midline shift. No extra-axial fluid collections. No acute soft tissue or osseous abnormalities. The mastoid air cells and paranasal sinuses are clear. Cervical Spine: The atlantooccipital and atlantoaxial articulations remain well aligned. Straightening of the normal cervical lordosis. Otherwise, there is anatomic alignment of the vertebral bodies and posterior elements. No evidence of acute fracture or subluxation. There is moderate cervical spondylosis from C4 through C7 with disc space narrowing and osteophyte complexes. There is no prevertebral soft tissue swelling. The thyroid gland and remaining cervical soft tissues are normal in appearance. The lung apices demonstrate no abnormalities. CT/CT cervical spine wo con IMPRESSION: No acute intracranial pathology. No acute traumatic sequela of the cervical spine.
[2021-04-14 19:29] VITALS: BP 126/84; PULSE 74; RESP 14; TEMP 37; O2SAT 98; BMI 24.0
[2021-04-14] MEDS: Haloperidol Lactate 5 MG/ML VIAL IM (19:47)
[2021-04-14] MEDS: diphenhydrAMINE HCL 50 MG/ML VIAL IM (19:47)
[2021-04-14] MEDS: LORazepam 2 MG/ML VIAL IM (19:47)
[2021-04-14 19:52] VITALS: BP 117/52; PULSE 77; RESP 14; TEMP 36.8; O2SAT 92
--- NOTE | 2021-04-14 19:59 | ED.ALCOHOL ---
HPI - Alcohol General Chief Complaint: ETOH/Substance Use Stated Complaint: Crisis Time Seen by Provider: 04/14/21 19:30 Source: patient and EMS Mode of arrival: EMS Limitations: altered mental status (Intoxicated) History of Present Illness HPI narrative: Patient is brought to the emergency room by EMS. Patient was found intoxicated in an apartment complex, trying to get into the building. Patient refused to sign her name, no lasting. When patient arrived here she was a bit combative, eventually she told us her name. Patient is trying to punch people. Patient had to be chemically restrained. Patient has a small laceration in the back of her scalp, looks like it bled earlier today, now the blood is dry. Going through patient's records, patient has history of subdural hematoma. Patient is clinically intoxicated, unable to provide any history Related Data Home Medications Medication Instructions Recorded Confirmed acetaminophen [Tylenol] PO DAILY PRN 12/11/20 04/02/21 Allergies Allergy/AdvReac Type Severity Reaction Status Date / Time clonazepam Allergy Unknown amnesia, Verified 04/02/21 13:20 suicidal thoughts lorazepam Allergy Unknown unknown Verified 04/02/21 13:20 sertraline [Zoloft] AdvReac Unknown unknown Verified 04/02/21 13:20 From WELLBUTRIN Allergy Unknown PATIENT Uncoded 04/02/21 13:20 BECOMES INSANE From ZOLOFT Allergy Unknown PT BECOMES Uncoded 04/02/21 13:20 INSANE Wellbutrin Allergy Unknown unknown Uncoded 04/02/21 13:20 ambien AdvReac Unknown night Uncoded 04/02/21 13:20 mare, suicidal thoughts Review of Systems Review of Systems: Yes Unobtainable due to mental status PMFSH Past Medical History Medical History Cataract No known health problems Surgical History Hx of section Social History Social History Household Members: Spouse, Children and Other Household Members Other:: grandchild Housing: Apartment Alcohol intake: current Alcohol intake frequency: other Patient Tobacco Use Status: Never used Tobacco Second Hand Smoke Exposure: No Use of substances other than those prescribed or required for medical reasons: Unknown Advance Directives: No Patient : No Current occupational status: employed Physical Exam Vital Signs: Vital Signs: Last Vital Signs Temp 98.2 F 04/14/21 19:52 Pulse 77 04/14/21 20:20 Resp 14 04/14/21 20:20 BP 98/53 L 04/14/21 20:20 Pulse Ox 93 04/14/21 20:20 Body Mass Index 24.0 Const: Other: Appearance: Alert. Intoxicated Eyes: Pupils equal, round and reactive to light. ENT: Pharynx normal. Neck: Normal inspection. Neck supple. No lymph nodes noted. No crepitus CVS: Normal heart rate and rhythm. Pulses normal. Normal S1 and S2 Respiratory: No respiratory distress. Breath sounds normal. No Wheezing. No rales Abdomen: Soft and nontender. No rigidity. No distention. good Skin: Skin warm and dry. 1 cm laceration to the back of the scalp, bleeding controlled Extremities: No lower extremity edema. Moves all extremities Neuro: No motor deficit. No sensory deficit. Moving all extermities. No slurred speech. Combative, trying to punch people Course Course Course Narrative: Patient made some suicidal statements while she was intoxicated. When patient is awake, patient is to be reassessed for SI. Section 12 form [facility] filled [facility]. Patient is unable to give any significant history due to being intoxicated. Patient evidently fell, has a small laceration. As mentioned above, patient has history of a subdural hematoma. We had to chemically restrain the patient because she was physically aggressive to our staff, needed carlos and needed a CT scan. Patient received 1 dose 2 mg Ativan, 5 mg Haldol,And 50 mg IM Benadryl. Order for chemical restraint 19:[address] neck CT do not show any acute pathology. Patient has 1 staple and head. Plan is to metabolize to freedom. When patient is awake and sober, patient will likely be discharged. Sign out given to Dr. Sanchez [facility] - Alcohol Imaging Data Head and neck CT: Radiologist's impression: Head: There is no evidence of acute intracranial hemorrhage or edematous territorial infarction. There is no abnormal attenuation within the brain parenchyma. Gonzalez-white matter differentiation is preserved. The ventricles are normal in size and configuration. No evidence for obstructive hydrocephalus. No abnormal mass effect or midline shift. No extra-axial fluid collections. No acute soft tissue or osseous abnormalities. The mastoid air cells and paranasal sinuses are clear. Cervical Spine: The atlantooccipital and atlantoaxial articulations remain well aligned. Straightening of the normal cervical lordosis. Otherwise, there is anatomic alignment of the vertebral bodies and posterior elements. No evidence of acute fracture or subluxation. There is moderate cervical spondylosis from C4 through C7 with disc space narrowing and osteophyte complexes. There is no prevertebral soft tissue swelling. The thyroid gland and remaining cervical soft tissues are normal in appearance. The lung apices demonstrate no abnormalities. CT/CT cervical spine wo con IMPRESSION: No acute intracranial pathology. ? No acute traumatic sequela of the cervical spine. Procedures Laceration Laceration 1: Site: scalp Size (cm): 1 Description: linear Amount of anesthesia used (mL): 1 Skin layer closed with: other (Staple) Discharge Plan Discharge Clinical Impression: Alcohol intoxication Prescriptions: No Action acetaminophen PO DAILY PRNRF: 0
[2021-04-14 20:20] VITALS: BP 98/53; PULSE 77; RESP 14; O2SAT 93
[2021-04-14 23:15] VITALS: BP 93/55; PULSE 75; RESP 12; O2SAT 98
[2021-04-15 00:09] VITALS: BP 98/66; PULSE 80; RESP 16; O2SAT 98
--- NOTE | 2021-04-15 01:36 | PC.NURSE ---
Spoke with patient's to let him know where she was. He said he had been looking for her for 2 hours and that it was his fault because he was the one who supplied her the alcohol.
[2021-04-15 02:00] VITALS: BP 132/68; PULSE 72; RESP 14; O2SAT 98
[2021-04-15 04:02] VITALS: BP 116/71; PULSE 74; RESP 14; O2SAT 98
[2021-04-15 06:03] VITALS: BP 122/74; PULSE 89; RESP 16; O2SAT 98
--- NOTE | 2021-04-15 12:04 | MHC.RECOVSUP ---
? Reason for consult:Recovery Support o Current location:ED-8 o Identified substance use concern:ETOH - Support ? Intervention: o Community resources provided o Harm reduction discussion ? Plan: o Referral to [facility] o Patient to follow up with [facility] after discharge ? Additional information: Referred patient to the [facility] and [facility], patient states she does not drink everyday and that this was an aberration.
[2021-04-15 12:36] VITALS: BP 127/71; PULSE 81; RESP 16; TEMP 36.9; O2SAT 95
== END 2021-04-15 12:51 | disposition home or self-care (01) ==
PROVIDERS: Emergency Provider Emergency Medicine
DX: S01.01XA Laceration without foreign body of scalp, initial encounter (principal); G44.309 Post-traumatic headache, unspecified, not intractable; F10.129 Alcohol abuse with intoxication, unspecified; Y90.9 Presence of alcohol in blood, level not specified; W01.0XXA Fall on same level from slipping, tripping and stumbling without subsequent striking against object, initial encounter; Y93.9 Activity, unspecified; Y92.9 Unspecified place or not applicable; Y99.9 Unspecified external cause status; Z79.899 Other long term (current) drug therapy
CPT/HCPCS: 12001; 70450; 71045; 72125; 96372; 99285; J1200; J2060

== ENCOUNTER 2021-05-05 08:23 | Outpatient (REF) | payer OTHER, SELFPAY ==
--- NOTE | ~2021-05-05 | XR_ITS ---
EXAMINATION: XR SHOULDER, RIGHT CLINICAL INFORMATION: Pain COMPARISON: None TECHNIQUE: AP external rotation, Grashey, scapular Y, and axillary views of the right shoulder. FINDINGS: There is increased sclerosis in the medial humeral neck questionable for old or healing nondisplaced fracture. There is also increased sclerosis of the anterior third fourth and fifth ribs also questionable for healing nondisplaced fractures. There is mild arthritis at the acromioclavicular and glenohumeral joints. There are degenerative changes of the greater tuberosity. Soft tissues are unremarkable. XR/XR shoulder RT min 2V IMPRESSION: Increased sclerosis of the medial humeral neck and right anterior third fourth and fifth ribs questionable for healing nondisplaced fractures. Degenerative changes at the shoulder joint.
== END 2021-05-05 08:24 | disposition home or self-care (01) ==
LOC: HO.HOSX 08:23
PROVIDERS: Visit Provider Orthopaedic Surgery
DX: M75.101 Unspecified rotator cuff tear or rupture of right shoulder, not specified as traumatic (principal)
CPT/HCPCS: 20610; 73030; 99202; J1100

== ENCOUNTER 2021-05-06 18:25 | Emergency (ER) | payer OTHER, SELFPAY ==
--- NOTE | 2021-05-06 18:30 | ED_ITS ---
HPI - Psych General Chief Complaint: ETOH/Substance Use Stated Complaint: crisis Source: patient, EMS and police Mode of arrival: EMS Limitations: no limitations History of Present Illness HPI Narrative: 64-year-old female presents via EMS and police escort for alcohol intoxication. Police were called for safety and wellness by multiple mechanic welder truck driver's on highway. Patient was reported to be walking and weaving in and out of traffic on highway, laying in the street, when police arrived on the scene patient was laying on the side of the road in a ditch. Patient is verbally aggressive. MD complaint: alcohol abuse Onset (ago): unknown History of same: Yes Relieving factors: none Exacerbating factors: alcohol Context: recent alcohol abuse Associated psychiatric symptoms: depression and suicidal ideation Associated symptoms: denies other symptoms Treatments prior to arrival: placed on mental health hold If self harm: has acted on plan Related Data Home Medications Medication Instructions Recorded Confirmed acetaminophen 325 mg tablet 325 mg PO BID PRN 05/06/21 05/06/21 ibuprofen 200 mg tablet 200 mg PO BID PRN 05/06/21 05/06/21 Allergies Allergy/AdvReac Type Severity Reaction Status Date / Time clonazepam Allergy Unknown amnesia, Verified 05/05/21 10:09 suicidal thoughts lorazepam Allergy Unknown unknown Verified 05/05/21 10:09 sertraline [Zoloft] AdvReac Unknown unknown Verified 05/05/21 10:09 From WELLBUTRIN Allergy Unknown PATIENT Uncoded 04/02/21 13:20 BECOMES INSANE From ZOLOFT Allergy Unknown PT BECOMES Uncoded 04/02/21 13:20 INSANE Wellbutrin Allergy Unknown unknown Uncoded 04/02/21 13:20 ambien AdvReac Unknown night Uncoded 04/02/21 13:20 mare, suicidal thoughts Review of Systems Review of Systems: Constitutional: No Fever, No Chills ENT/Mouth: No sore throat, No Rhinorrhea Eyes: No Eye Pain, No Swelling, No Redness Cardiovascular: No Chest Pain, No SOB Respiratory: No Cough, No Sputum Gastrointestinal: No Nausea, No Vomiting, No Diarrhea, No abdominal Pain Genitourinary: No Dysuria, No Hematuria Musculoskeletal: No joint pain, No Myalgias, No Joint Swelling Skin: No Skin Lesions, No rash Neuro: No Weakness, No Numbness, No Loss of Consciousness, No Dizziness, No Headache Psych: Positive alcohol intoxication, positive suicidal ideation, No Anxiety, No Depression, No HI/AH/VH Heme/Lymph: No Bruising, No Bleeding,No Lymphadenopathy Endocrine: No Polyuria, No Polydipsia Yes all other systems are reviewed and are negative [facility] Past Medical History Attestation statement: The following information was validated with the patient. 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 Oriented X3. Emotional distress. Intoxicated. Eyes: Pupils equal, round and reactive to light. ENT: Pharynx normal. Neck: Normal inspection. Neck supple. CVS: Normal heart rate and rhythm. Pulses normal. Respiratory: No respiratory distress. Breath sounds normal. Abdomen: Soft and nontender. Skin: Skin warm and dry. Normal skin color. Normal skin turgor. Extremities: No lower extremity edema. Gait balanced and coordinated. Neuro: No motor deficit. No sensory deficit. Cranial nerves 2-12 intact. Course Course Course Narrative: 64-year-old female presents via EMS with police escort. Patient is intoxicated was found laying in a ditch on the side of the highway. Police officers reports that she was walking and weaving in and out of traffic on highway, was laying in the road and then crawled over to the side of the street to lay in the ditch. Patient is verbally aggressive at this time and reluctantly compliant with vital signs. Patient on section 12 in the community by [facility]. Will order labs, COVID testing. While patient did not verbalize suicidal ideation, her actions based on police report indicates suicidality. She does have a prior history of EtOH intoxication and combative behavior. 7:35 p.m. ETOH 306. Physician observation started at this time. [facility] consult pending. MDM - Psych Differential Diagnosis Differential diagnosis: Likely acute psychosis, suicidal ideation, depression a nd alcohol intoxication Medical Records Attestation: I reviewed the patient's medical records. Lab Data Attestation: I reviewed the patient's lab results. Labs: Lab Results 05/06/21 05/06/21 Range/Units 18:47 18:58 Ethyl Alcohol 306 H* mg/dL COVID-19 (BASSEM) Negative (Negative) COVID-19 Clin Com See Note Discharge Plan Discharge Clinical Impression: Alcoholism Depression, major, severe recurrence Qualifiers: Psychotic features: with psychotic features Qualified Code(s): F33.3 - Major depressive disorder, recurrent, severe with psychotic symptoms Alcoholic intoxication Qualifiers: Complication of substance-induced condition: uncomplicated Qualified Code(s): F10.920 - Alcohol use, unspecified with intoxication, uncomplicated Suicidal behavior Qualifiers: Attempted self-injury: with attempted self-injury Qualified Code(s): T14.91XA - Suicide attempt, initial encounter Prescriptions: No Action acetaminophen 325 mg Tablet 325 mg PO BID PRN (Reason: Pain) RF: 0 ibuprofen 200 mg Tablet 200 mg PO BID PRN (Reason: Pain) RF: 0
[2021-05-06 18:34] VITALS: BP 210/110; PULSE 90; RESP 20; O2SAT 97; BMI 19.7
[2021-05-06 19:10] LABS: COVID-19 Test Negative (Negative)
[2021-05-06 19:17] LABS: Ethanol 306 mg/dL
--- NOTE | 2021-05-06 19:50 | MHC.CARE ---
CARE team consult received. She is intoxicated at this time and will not be appropriate for consult or assessment until tomorrow morning.
--- NOTE | 2021-05-06 20:01 | PHA.MEDREC ---
Pharmacy Consult ? Medication Reconciliation Pharmacy has completed the medication reconciliation.
--- NOTE | 2021-05-06 21:57 | PC.NURSE ---
Patient is currently sitting in chair in her room, dozing on and off with risk of falling off the chair, advised to lie down in her bed but refused stating I will not go into that bed, I don't care If I fall patient has History of engaging in risky behavior and non compliant with the direction, will continue to monitor.
[2021-05-07 05:29] VITALS: BP 112/59; PULSE 94; RESP 15; TEMP 36.5; O2SAT 94
[2021-05-07 05:53] LABS: Appearance Urine CLEAR; Color Urine YELLOW; Glucose Urine UA NEG (NEG); Leukocyte Esterase Urine NEG (NEG); Nitrite Urine NEG (NEG); PH 5.5 (5.0-8.0); Specific Gravity - Urine 1.025 (1.005-1.025); Urine Blood NEG (NEG); Urine Ketones NEG (NEG); Urine Protein NEG (NEG-TRACE)
--- NOTE | 2021-05-07 06:07 | PC.NURSE ---
Patient slept through the night, no distress observed/reported, asymptomatic of withdrawal at this time, behavior non concerning, patient will be evaluated by Care Team in the morning, received multiples phones from family members particularly patient's daughter who seems under influence requesting to have her mother admitted to Inpatient psych facility, family members were explained the process, patient just made phone call to her hoping to go home in the morning, VSS, will continue to monitor.
[2021-05-07 06:21] LABS: Amphetamine Screen Urine Not Detected (Not Detect); Barbiturates, Urine Not Detected (Not Detect); Benzodiazepines Screen Urine Not Detected (Not Detect); Cannabinoid Screen Urine Not Detected (Not Detect); Cocaine Screen Urine Not Detected (Not Detect); Fentanyl, urine Not Detected (Not Detect); Opiate Screen Urine Not Detected (Not Detect); Phencyclidine Screen Urine Not Detected (Not Detect)
--- NOTE | 2021-05-07 10:04 | PC.NURSE ---
TRISTIAN MET WITH PT THIS AM. PT ALERT AND ORIENTED, COOPERATIVE. AWAITING TO HEAR WHAT N'S DECISION IS
== END 2021-05-07 11:36 | disposition home or self-care (01) ==
PROVIDERS: Nurse Practitioner Family; Emergency Provider Emergency Medicine; PCP Internal Medicine
DX: F10.220 Alcohol dependence with intoxication, uncomplicated (principal); Y90.8 Blood alcohol level of 240 mg/100 ml or more; T14.91XA Suicide attempt, initial encounter; F33.3 Major depressive disorder, recurrent, severe with psychotic symptoms; R45.6 Violent behavior; Z20.822 Contact with and (suspected) exposure to COVID-19
CPT/HCPCS: 36415; 80307; 81003; 82077; 87635; 99285

== ENCOUNTER 2021-06-16 15:00 | Outpatient (RCR) | payer OTHER, SELFPAY ==
--- NOTE | 2021-05-12 16:24 | MHC.PT.EP ---
[facility] [place] Office [place] Office [place] Office [address] Karlo Boswell [address] [phone] F: [phone] F: [phone] F: [phone] F: [phone] Physical Therapy Plan of Care Date of Evaluation: Date of Surgery: N/A Diagnosis: rotator cuff tear or rupture right shoulder Assessment: pt's signs and symptoms consistent w/ subacromial pain syndrome (SAPS). pt did also have recent xray imaging which was positive for healed fx of humeral neck. Unclear if pain is from residual fx or from d/t habitual poor posturing and periscapular/rotator cuff weakness. Will monitor and continue to treat or refer out as medically necessary. pt presents to physical therapy with pain, decreased range of motion, decreased strength, impaired functional mobility, and impaired postural awareness. pt is a good candidate for skilled PT due to age, potential remediation of impairments, typical disease/condition progression and prognosis, comorbidities, and motivation. pt would benefit from tailored strengthening and stretching exercise program, functional training, postural re-training, neuromuscular re-education, modalities as needed for pain, equipment safety demonstration. Frequency and Duration: The patient will be seen 2x/wk for 4 wks Short Term Goals: pt will be I w/ HEP to promote self-management of condition. 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 pt will improve R shoulder flexion by 10 degrees to promote ease in accessing dishes in higher cabinets at home/work. Alf Goals: pt will report a statistically significant improvement in self-reported outcome measure, SPADI, to promote return to PLOF. pt will improve R shoulder IR to at least level T5 to promote ease in donning/doffing upper body undergarments. Treatment Plan: Modalities to reduce pain, spasms and effusion. Manual therapy to restore motion and function. Therapeutic exercise to improve strength and flexibility. Neuromuscular re-education for posture and balance. Therapeutic activities to return to functional activities of daily living. Electronically signed by: Nancy Egan PT, DPT Please sign and return to therapist. Thank you for your referral.
--- NOTE | 2021-06-30 15:50 | MHC.PT.DC ---
[facility] [place] Office [place] Office [place] Office [address] Karlo Boswell [address] [facility] [phone] F: [phone] F: [phone] F: [phone] F: [phone] Physical Therapy Discharge Report Diagnosis: rotator cuff tear or rupture right shoulder Date of Surgery: N/A Date of Evaluation: 05/12/21 Date of Discharge: 06/30/21 Treatments to Date: 4 Cancellations to Date: 1 No Shows to Date: 3 Discharge Status: Visit Non-compliance Discharge Summary: The patient has been reporting a significant improvement in her pain and ability to tolerate ADLs and work-related tasks. She is independent with her home exercise program. She has no showed three consecutive appointments. Per [facility] Therapy policy she is to be discharged for visit non-compliance. Electronically signed by: Nancy Egan PT, DPT Please sign and return to therapist. Thank you for your referral.
== END 2021-06-30 15:51 | disposition home or self-care (01) ==
LOC: HO.PT 15:00
PROVIDERS: PCP Internal Medicine; Visit Provider Orthopaedic Surgery
DX: M75.101 Unspecified rotator cuff tear or rupture of right shoulder, not specified as traumatic (principal)
CPT/HCPCS: 97110; 97161

== ENCOUNTER 2021-07-15 08:08 | Emergency (ER) | payer OTHER, SELFPAY ==
--- NOTE | ~2021-07-15 | XR_ITS ---
EXAMINATION: XR RIBS, BILATERAL CLINICAL INFORMATION: Chest pain. History of fall. COMPARISON: None TECHNIQUE: 3 views of the bilateral ribs and one view of the chest were obtained. FINDINGS: There are old left posterior ninth and 10th rib fractures. There are old or healing left seventh and eighth rib fractures. No acute rib fracture is seen. The cardiac and mediastinal contours are normal. The lungs are clear. There is no pleural effusion or pneumothorax. XR/XR ribs BI min 4V w CXR1V IMPRESSION: Old or healing left posterior rib fractures. No acute fracture seen.
--- NOTE | ~2021-07-15 | CT_ITS ---
EXAMINATION: CT CERVICAL SPINE WITHOUT CONTRAST CLINICAL INFORMATION: Fall COMPARISON: Previous cervical spine CT scans most recent April 2021 TECHNIQUE: Axial images through the cervical spine without contrast. Sagittal and coronal reconstructions on the technologist workstation were performed. Patient dose 2 4 9 mg/cm. This CT examination was performed using dose optimization techniques as appropriate, variously including the following: *Automated exposure control *Adjustment of mA and/or kV according to patient size (this includes techniques or standardized protocols for targeted exams where dose is matched to indication/reason for exam; i.e. extremities or head) *Use of iterative reconstruction technique DLP: 249 mGy-cm FINDINGS: Bone alignment is normal. No fracture or dislocation is seen. There is multilevel degenerative spondylosis from C3-C4 to C6-C7. There is degenerative disc disease from C 4-5 to C6-C7. There are degenerative changes at the C1 dens articulation. Prevertebral soft tissues are normal. The lung apices are clear. CT/CT cervical spine wo con IMPRESSION: Degenerative changes. No fracture or dislocation seen. Fleischner guidelines were followed.
--- NOTE | ~2021-07-15 | CT_ITS ---
EXAMINATION: CT HEAD WITHOUT CONTRAST CLINICAL INFORMATION: Fall COMPARISON: Previous head CT most recent April 2021 TECHNIQUE: Contiguous axial imaging was performed from the skull base to vertex without intravenous administration of contrast. This CT examination was performed using dose optimization techniques as appropriate, variously including the following: *Automated exposure control *Adjustment of mA and/or kV according to patient size (this includes techniques or standardized protocols for targeted exams where dose is matched to indication/reason for exam; i.e. extremities or head) *Use of iterative reconstruction technique DLP: 662 mGy-cm FINDINGS: There is no evidence of an extra-axial collection. There is no evidence of intra-axial or extra-axial hemorrhage. The ventricles and extra-axial CSF spaces are appropriate. Gonzalez-white matter differentiation is normal. There is a 0.8 cm extra-axial ossification arising from the inner table of the left frontal bone and adjacent to the anterior left frontal lobe probably representing a benign meningioma. This is stable. No other mass, mass effect or infarct is seen. Review at bone windows is otherwise normal. CT/CT head/brain wo con IMPRESSION: No acute intracranial pathology. Probable subcentimeter meningioma adjacent to the left frontal lobe.
--- NOTE | ~2021-07-15 | CT_ITS ---
EXAMINATION: CT FACIAL BONES WITHOUT CONTRAST CLINICAL INFORMATION: Fall COMPARISON: Previous head CT scans most recent April 2021 TECHNIQUE: Axial images through the facial bones without contrast. Sagittal and coronal reconstructions on the technologist workstation were performed. This CT examination was performed using dose optimization techniques as appropriate, variously including the following: *Automated exposure control *Adjustment of mA and/or kV according to patient size (this includes techniques or standardized protocols for targeted exams where dose is matched to indication/reason for exam; i.e. extremities or head) *Use of iterative reconstruction technique DLP: 212 mGy-cm FINDINGS: There are bilateral nondisplaced nasal bone fractures of uncertain age. No other fracture is seen. The nasal septum is midline. Paranasal sinuses, mastoid air cells and middle ears are clear. The temporomandibular joints are normal. The orbits are normal. Soft tissues are normal.. CT/CT facial bones wo con IMPRESSION: Bilateral nondisplaced nasal bone fractures of uncertain age. No other fracture seen.
[2021-07-15 08:21] VITALS: BP 146/96; PULSE 90; RESP 16; TEMP 36.4; O2SAT 97; BMI 19.2
--- NOTE | 2021-07-15 09:24 | ECG_ITS ---
Test Reason : FALL Blood Pressure : / mmHG Vent. Rate : 080 BPM Atrial Rate : 080 BPM P-R Int : 146 ms QRS Dur : 082 ms QT Int : 362 ms P-R-T Axes : 020 059 053 degrees QTc Int : 417 ms Normal sinus rhythm Normal ECG When compared to the previous EKG of No significant changes seen Referred By: Stella Kirk Electronically Signed By:Jer Armendariz
[2021-07-15] MEDS: Diphth,Pertus(ACell),Tet Adult 0.5 ML SYRINGE IM (09:45)
[2021-07-15] MEDS: Acetaminophen 325 MG TABLET 975 MG PO (09:47)
[2021-07-15 10:33] VITALS: BP 145/83; PULSE 83; RESP 16; TEMP 37.1; O2SAT 98
--- NOTE | 2021-07-15 10:50 | ED_ITS ---
HPI - Fall General Chief Complaint: Fall Stated Complaint: Fall Time Seen by Provider: 07/15/21 09:16 Source: patient Mode of arrival: ambulatory Limitations: no limitations History of Present Illness HPI Narrative: 64-year-old female with a past medical history of head injury/concussion with subdural bleeding, cataracts, depression and alcoholism presenting to the ED with complaints of fall last night down a whole flight of stairs that are carpeted in her house around 23:00. She reports that she had a couple cups of wine and she went down the stairs and fell face forward down the flight of steps. She denies any prolonged down time. She denies any loss of consciousness. She denies being on any blood thinners. She denies any symptoms prior to the fall. She reports only pain to the face/lip and anterior upper chest wall after the fall otherwise she denies any other complaints concerns at this time. She reports that she is not sure she is up-to-date on tetanus. She denies any dizziness, changes in vision, trouble swallowing or breathing, chest pain or shortness of breath, dyspnea on exertion, orthopnea, palpitations, nausea/vomiting, abdominal pain, neck or back pain, extremity pain, joint pain, any focal weakness or general weakness or any other symptoms complaints or concerns at this time. complaint: fall Onset (ago): hour(s) (last night ) Fall from: down stairs (#) (Approximately 12 steps) Fall witnessed: no Place fall occurred: home Loss of consciousness: none Prolonged down time: no Symptoms prior to fall: none Context: tripped/slipped and alcohol use Location of injury: head, face, mouth and chest Severity: mild Quality: aching Associated symptoms (after fall): denies Related Data Home Medications Medication Instructions Recorded Confirmed acetaminophen 325 mg tablet 325 mg PO BID PRN 05/06/21 05/06/21 ibuprofen 200 mg tablet 200 mg PO BID PRN 05/06/21 05/06/21 Previous Rx's Medication Instructions Recorded acetaminophen 500 mg tablet 1,000 mg PO QID PRN #14 tab 07/15/21 (Tylenol Extra Strength) penicillin V potassium 500 mg 500 mg PO Q12H 10 Days #20 tab 07/15/21 tablet Allergies Allergy/AdvReac Type Severity Reaction Status Date / Time clonazepam Allergy Unknown amnesia, Verified 05/05/21 10:09 suicidal thoughts lorazepam Allergy Unknown unknown Verified 05/05/21 10:09 sertraline [Zoloft] AdvReac Unknown unknown Verified 05/05/21 10:09 From WELLBUTRIN Allergy Unknown PATIENT Uncoded 04/02/21 13:20 BECOMES INSANE From ZOLOFT Allergy Unknown PT BECOMES Uncoded 04/02/21 13:20 INSANE Wellbutrin Allergy Unknown unknown Uncoded 04/02/21 13:20 ambien AdvReac Unknown night Uncoded 04/02/21 13:20 mare, suicidal thoughts Review of Systems Review of Systems: Constitutional : No Weight loss, No Fever, No Chills, No Night Sweats, No Fatigue, No Malaise ENT/Mouth : No Hearing loss, No Ear Pain, No Nasal Congestion, No Sinus Pain, No Hoarseness, No sore throat, No Rhinorrhea, No Swallowing Difficulty Eyes: No Eye Pain, No Swelling, No Redness, No Foreign Body, No Discharge, No Vision Changes Cardiovascular : No Chest Pain, No SOB, No Dyspnea on Exertion, No Orthopnea, No Edema, No Palpitations Respiratory : No Cough, No Sputum, No Wheezing, No Smoke Exposure, No Dyspnea Gastrointestinal : No Nausea, No Vomiting, No Diarrhea, No Constipation, No abdominal Pain, No Hematochezia, No Melena Genitourinary : no irregular bleeding, No Dysuria, No Urinary Frequency, No Hematuria, No Urinary Incontinence, No Urgency, No Flank Pain, No Urinary Flow C hanges, No Hesitancy Musculoskeletal : + anterior chest wall/rib cage pain, positive pain to the low er lip with laceration, no additional joint pain, No Myalgias, No Joint Swelling, no neck pain, no back pain, no extremity pain, Skin : No Skin Lesions, No rash Neuro : No Weakness, No Numbness, No Paresthesias, No Loss of Consciousness, No Dizziness, No Headache Psych : No Anxiety/Panic, No Depression, No SI/HI/AH/VH, No Social Issues, Heme/Lymph: No Bruising, No Bleeding,No Lymphadenopathy Endocrine : No Polyuria, No Polydipsia, No Temperature Intolerance Yes all other systems are reviewed and are negative PMFSH Past Medical History Attestation statement: The following information was validated with the patient. 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 Blood pressure 146/96. Heart rate normal. Respiration rate normal. Temperature normal. Oxygen saturation normal. Appearance: Alert. Oriented X3. No acute distress. Head: Normal external exam. Normocephalic. Atraumatic. No Piper signs noted. No raccoon eyes noted Eyes: PERRLA. EOMI. Conjunctiva and sclera normal. Eyelids normal. ENT: To the lower lip patient has the infected laceration with multiple flaps involving the vermilion border which is through and through involves muscle layer. No foreign bodies or active bleeding noted at this time. EAC normal. TM's Normal. No septal hematoma noted. No hemotympanum noted. Patient mild tenderness all patient to the nasal bones with soft tissue swelling and ecchymosis noted. Pharynx normal. Uvula midline. Moist mucous membranes. No trismus noted. No drooling noted. No muffled voice noted. No dental trauma noted. No dental fractures. No dental subluxations noted. Neck: Normal inspection. Neck supple. FROM. No adenopathy. Thyroid Normal. No meningeal signs. No neck mass noted. Nontender. Patient is neuro intact bilaterally and distally on all 4 extremities. Reflexes intact bilaterally distant all 4 extremities. CVS: Normal heart rate and rhythm. Heart sound normal. Pulses normal throughout. No murmurs/rales/gallops. Respiratory: No respiratory distress. Painless inspiration. Breath sounds normal. No wheezes/rales/rhonchi noted. Chest nontender. No accessory muscle usage noted or decreased air movement noted. Abdomen: Soft and nontender. Bowel sounds normal in all 4 quadrants. No dist ention noted. No organomegaly noted. No visible injury noted. Back: No CVA tenderness. Full range of motion noted. No rashes/lesion/induration/fluctuance or signs of infection noted. Nontender. No bruises or signs of trauma or lacerations or abrasions or step-offs or deformities noted. Patient neuro intact bilaterally and distally on all 4 extremities. Reflexes intact bilaterally and distally on all 4 extremities. Skin: Skin warm and dry. Normal skin color. Normal skin turgor. No rash es/lesions/lacerations noted. Extremities: No lower extremity edema. No calf tenderness is noted. Extremities exhibit normal range of motion. Extremities nontender. Neuro: Oriented X 3. No motor deficit. No sensory deficit. Reflexes normal. Normal steady gait. No focal neuro deficits noted. Vascular: + radial pulses/+ 2 distal pedal pulses/+2 dorsalis pedis b/l. Normal cap refill. No cyanosis noted to upper extremity nails and lower extremity toes nails. Course Course Course Narrative: 64-year-old female with a past medical history of head injury/concussion with subdural bleeding, cataracts, depression and alcoholism presenting to the ED with complaints of fall last night down a whole flight of stairs that are carpeted in her house around 23:00. She reports that she had a couple cups of wine and she went down the stairs and fell face forward down the flight of steps. She denies any prolonged down time. She denies any loss of consciousness. She denies being on any blood thinners. She denies any symptoms prior to the fall. She reports only pain to the face/lip and anterior upper chest wall after the fall otherwise she denies any other complaints concerns at this time. She reports that she is not sure she is up-to-date on tetanus. I attempted to transfer the patient to [facility] for plastic surgeon to do the repair on the patient's lower lip due to involve vermilion border and very complicated and infected although when I called [facility] they reported that they are close to any stable transferred there for I was able to repair her lip with absorbable sutures approximately 10 sutures were placed. Patient tolerated procedure well. No complications. Although borders were revised. CT scan of brain revealed possible subcentimeter meningioma adjacent to the left frontal lobe otherwise no other acute processes. Facial bone CT scan revealed bilateral nondisplaced nasal bone fractures of uncertain age no other acute processes or fracture seen. CT scan of cervical spine revealed chronic changes no acute processes were noted. Chest in PA rib x-rays revealed old and healing left posterior rib fractures otherwise no other acute processes were seen. Therefore I printed out all these results and give it to the patient so she can follow up with her primary care provider/ear nose and throat and a plastic surgeon for her meningioma, bilateral nasal bone fracture and her lower lip a complicated infected laceration that I had to repair due to [facility] closed for any stable transferred. Along with an tibiotics and symptomatic treatment instructions return if any new or worsening symptoms. Patient understands agrees with this plan. Procedures Laceration Laceration 1: Site: lip Size (cm): 6 Description: flap (Multiple flaps), irregular, contaminated and involves rain border Depth: involves muscle layer and [id number] Local Anesthetic: lidocaine 2% Amount of anesthesia used (mL): 5 Pre-repair: wound explored, irrigated extensively, deep structures intact, extensive debridement and wound margins revised Skin layer closed with: other (Absorbable) Size (cm): 4-0 Number of sutures: 10 Technique: simple, interrupted MDM - Fall Medical Records Attestation: I reviewed the patient's medical records. Imaging Data CT scan of brain/cervical spine/facial bones without contrast: Attestation: I personally reviewed and interpreted this imaging study as follows: Radiologist's impression: FINDINGS: There is no evidence of an extra-axial collection. There is no evidence of intra-axial or extra-axial hemorrhage. The ventricles and extra-axial CSF spaces are appropriate. Gonzalez-white matter differentiation is normal. There is a 0.8 cm extra-axial ossification arising from the inner table of the left frontal bone and adjacent to the anterior left frontal lobe probably representing a benign meningioma. This is stable. No other mass, mass effect or infarct is seen. Review at bone windows is otherwise normal. ? CT/CT head/brain wo con IMPRESSION: No acute intracranial pathology. Probable subcentimeter meningioma adjacent to the left frontal lobe. FINDINGS: Bone alignment is normal. No fracture or dislocation is seen. There is multilevel degenerative spondylosis from C3-C4 to C6-C7. There is degenerative disc disease from C 4-5 to C6-C7. There are degenerative changes at the C1 dens articulation. Prevertebral soft tissues are normal. The lung apices are clear.? CT/CT cervical spine wo con IMPRESSION: Degenerative changes. No fracture or dislocation seen.? ? Fleischner guidelines were followed. FINDINGS: There are bilateral nondisplaced nasal bone fractures of uncertain age. No other fracture is seen. The nasal septum is midline. Paranasal sinuses, mastoid air cells and middle ears are clear. The temporomandibular joints are normal. The orbits are normal. Soft tissues are normal.. CT/CT facial bones wo con IMPRESSION: Bilateral nondisplaced nasal bone fractures of uncertain age. No other fracture seen. Ribs and PA chest x-ray: Attestation: I personally reviewed and interpreted this imaging study as follows: Radiologist's impression: FINDINGS: There are old left posterior ninth and 10th rib fractures. There are old or healing left seventh and eighth rib fractures. No acute rib fracture is seen. The cardiac and mediastinal contours are normal. The lungs are clear. There is no pleural effusion or pneumothorax. XR/XR ribs BI min 4V w CXR1V IMPRESSION: Old or healing left posterior rib fractures. No acute fracture seen. ECG Data Attestation: I personally reviewed and interpreted this ECG as follows: ECG interpretation date: 07/15/21 ECG interpretation time: 09:31 Interpretation: Normal sinus rhythm and a circular rate of 80 with a normal NM interval normal QRS duration normal QT/QTC interval. No acute ischemic changes are noted. Similar when compared to prior EKG 03/06/2011. Critical Care Time Critical Care Time Critical Care Time: Yes Total Critical Care Time: 60 Attestation: I personally attest to this time spent taking care of the patient Discharge Plan Discharge Clinical Impression: Fall, Complicated laceration of lip, Infected laceration of lip, Closed fracture of rib with routine healing, Closed nondisplaced fracture of nasal bone, Meningioma Patient Disposition: Home, Self-Care Instructions: Nasal Fracture (ED), Rib Fracture (ED), Fall Prevention for Older Adults (ED), Meningioma (ED), Facial Laceration (ED) Additional Instructions: You should also follow up with [facility] Plastic surgery please call [phone] they are located at [address] in [facility]. Or you can also follow-up with [facility] plastic and reconstructive surgery and [place] in [address] [place] [address] [address] at [facility] at [phone]. You should also follow-up with [facility] ear nose and throat at [address] [place] [address] [address], [place] at [phone]. You have absorbable sutures therefore you do not need to return to get any stitches out. Return if any new or worsening symptoms. Follow up with her primary care provider/ear nose and throat doctor and plastic surgeon as soon as possible call today to make an appointment within this week. You should have further evaluation treatment for possible meningioma that was found and your left frontal lobe of your brain. Prescriptions: New penicillin V potassium 500 mg tablet 500 mg PO Q12H 10 Days Qty: 20 0RF acetaminophen [Tylenol Extra Strength] 500 mg tablet 1,000 mg PO QID PRN (Reason: fever or pain) Qty: 14 0RF No Action acetaminophen 325 mg Tablet 325 mg PO BID PRN (Reason: Pain) 0RF ibuprofen 200 mg Tablet 200 mg PO BID PRN (Reason: Pain) 0RF Referrals: Az Verduzco MD [Primary Care Provider] - 2 days Discharge Date/Time: 07/15/21 12:53 Print Language: Latvian
--- NOTE | 2021-07-15 10:52 | PC.NURSE ---
@ 10:52 THEODORE ANDRADE REQUESTING CALL OUT TO [facility] PT TX LINE FOR PLASTIC SURGERY CHUY ANSWERS AND ASKS TO SPEAK WITH LUPE ANDRADE TAKES OVER CALL RIGHT AWAY
[2021-07-15] MEDS: Lidocaine HCl 2 % MPF 5 ML VIAL SUBCUT (12:48)
== END 2021-07-15 12:53 | disposition home or self-care (01) ==
PROVIDERS: Emergency Provider Emergency Medicine; PCP Internal Medicine
DX: S01.511A Laceration without foreign body of lip, initial encounter (principal); S22.42XA Multiple fractures of ribs, left side, initial encounter for closed fracture; S02.2XXA Fracture of nasal bones, initial encounter for closed fracture; L08.9 Local infection of the skin and subcutaneous tissue, unspecified; M54.2 Cervicalgia; G44.309 Post-traumatic headache, unspecified, not intractable; D32.9 Benign neoplasm of meninges, unspecified; W10.9XXA Fall (on) (from) unspecified stairs and steps, initial encounter; Y93.9 Activity, unspecified; Y92.9 Unspecified place or not applicable; Y99.9 Unspecified external cause status; R07.81 Pleurodynia; Z79.899 Other long term (current) drug therapy
CPT/HCPCS: 12053; 70450; 70486; 71111; 72125; 90471; 90715; 93005; 99284; 99291

== ENCOUNTER 2021-08-23 14:09 | Emergency (ER) | payer OTHER, SELFPAY ==
--- NOTE | ~2021-08-23 | CT_ITS ---
EXAMINATION: CT HEAD WITHOUT CONTRAST CLINICAL INFORMATION: Fall. Trauma to head. COMPARISON: CT head 07/15/2021 TECHNIQUE: Contiguous axial imaging was performed from the skull base to vertex without intravenous administration of contrast. This CT examination was performed using dose optimization techniques as appropriate, variously including the following: *Automated exposure control *Adjustment of mA and/or kV according to patient size (this includes techniques or standardized protocols for targeted exams where dose is matched to indication/reason for exam; i.e. extremities or head) *Use of iterative reconstruction technique DLP: 625 mGy-cm FINDINGS: There is no evidence of acute intracranial hemorrhage or territorial infarction. No abnormal mass effect or midline shift is seen. Gonzalez to white matter differentiation is well preserved. No extra-axial fluid collections are identified. There is generalized global volume loss. There is mild prominence of the ventricles and the sulci . There are vascular calcifications of the internal carotid arteries bilaterally. The osseous structures and soft tissues are normal. The mastoid air cells and visualized portions of the paranasal sinuses are well aerated. CT/CT head/brain wo con IMPRESSION: No acute intracranial pathology.
--- NOTE | 2021-08-23 14:32 | ED_ITS ---
HPI - General Adult General Chief complaint: Syncope Stated complaint: ETOH, UNCOOPERATIVE Time Seen by Provider: 08/23/21 14:31 Source: patient, EMS, RN notes reviewed and old records reviewed Mode of arrival: EMS Limitations: no limitations History of Present Illness HPI narrative: 64-year-old female with past medical history of hypertension, cataracts, cervical radiculopathy, depression, subdural bleeding, alcoholism, syncope, head concussion was brought to ED via ambulance. Patient was found wandering by PD on [facility]. Patient has old bruises on her head and right shoulder. Patient is alert and oriented. Patient reports that she was at work this morning, at [employer] in the kitchen and had an syncopal event. Patient was found by her co-worker and was sent home. She reports to be under a lot of stress at work. Patient was sitting on the couch after coming home and drinking wine with her . Patient reports that she had 2 cups of wine and went for a walk. Patient was found by [place] [employer] wandering around and confused. Patient is alert and oriented in the ED. Denies any domestic abuse. Patient was seen back in July for fall and lip laceration with contusions. Spoke with patient's daughter Carito who reports that patient over the last year has been depressed and drinking a lot. Patient was found wandering after drinking on several occasions. Patient's daughter is worry about her. Patient has seen her PCP few weeks ago and was found to have a high blood pressure. Not on any BP medication. Patient's daughter reports that she was drinking yesterday afternoon and went this morning to work. Patient's daughter reports that she does not believe that her mother drinks at work. Patient has a history of SI and overdose back in 2010. She was hospitalized. Today patient denies any SI or HI. Patient is not of on any antidepressants or antipsychotic medications Onset (ago): hour(s) Related Data Home Medications Medication Instructions Recorded Confirmed acetaminophen 325 mg tablet 325 mg PO BID PRN 05/06/21 08/01/21 melatonin 10 mg capsule 10 mg PO BEDTIME PRN 07/23/21 08/01/21 Previous Rx's Medication Instructions Recorded acetaminophen 500 mg tablet 1,000 mg PO QID PRN #14 tab 07/15/21 (Tylenol Extra Strength) Allergies Allergy/AdvReac Type Severity Reaction Status Date / Time clonazepam Allergy Unknown amnesia, Verified 07/23/21 10:26 suicidal thoughts lorazepam Allergy Unknown unknown Verified 07/23/21 10:26 sertraline [Zoloft] AdvReac Unknown unknown Verified 07/23/21 10:26 From WELLBUTRIN Allergy Unknown PATIENT Uncoded 07/23/21 10:26 BECOMES INSANE From ZOLOFT Allergy Unknown PT BECOMES Uncoded 07/23/21 10:26 INSANE Wellbutrin Allergy Unknown unknown Uncoded 07/23/21 10:26 ambien AdvReac Unknown night Uncoded 07/23/21 10:26 mare, suicidal thoughts Review of Systems Review of Systems: Constitutional : No Weight loss, No Fever, No Chills, No Night Sweats, No Fatigue, No Malaise ENT/Mouth : No Hearing loss, No Ear Pain, No Nasal Congestion, No Sinus Pain, No Hoarseness, No sore throat, No Rhinorrhea, No Swallowing Difficulty Eyes: No Eye Pain, No Swelling, No Redness, No Foreign Body, No Discharge, No Vision Changes Cardiovascular : No Chest Pain, No SOB, No Dyspnea on Exertion, No Orthopnea, No Edema, No Palpitations Respiratory : No Cough, No Sputum, No Wheezing, No Smoke Exposure, No Dyspnea Gastrointestinal : No Nausea, No Vomiting, No Diarrhea, No Constipation, No abdominal Pain, No Hematochezia, No Melena Genitourinary : no irregular bleeding, No Dysuria, No Urinary Frequency, No Hematuria, No Urinary Incontinence, No Urgency, No Flank Pain, No Urinary Flow Changes, No Hesitancy Musculoskeletal : No joint pain, No Myalgias, No Joint Swelling Skin : No Skin Lesions, No rash Neuro : No Weakness, No Numbness, No Paresthesias, No Loss of Consciousness, No Dizziness, No Headache Psych : No Anxiety/Panic, No Depression, No SI/HI/AH/VH, No Social Issues, Yes all other systems are reviewed and are negative PMFSH Past Medical History Medical History Cataract No known health problems Surgical History Hx of section Social History Social History Household Members: Spouse, Children and Other Household Members Other:: grandchild Housing: Apartment Alcohol intake: current Alcohol intake frequency: 3 or more drinks per day Patient Tobacco Use Status: Never used Tobacco Second Hand Smoke Exposure: No Advance Directives: Yes Advance Directives on File: Yes Advance Directives Date on File: 08/23/21 Current occupational status: employed 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 Physical Exam ED Vital Signs: Vital Signs - 24 hr 08/23/21 14:43 Pulse Rate 86 Respiratory Rate 16 Blood Pressure 125/67 Pulse Oximetry 100 BMI result Body Mass Index 19.3 Const General: cooperative and no acute distress Nutritional Appearance: average body habitus Orientation/consciousness: patient oriented x3 Limitations: no limitations HENMT Head: Yes normocephalic and Yes other (Old bruise to right frontal area ) Neck Neck: Yes normal visual inspection, Yes full ROM and Yes trachea midline Thyroid: Thyroid normal Resp Effort & Inspection: normal respiratory effort and able to speak in complete sentences Auscultation: clear to auscultation bilaterally Cardio Rate: regular rate Rhythm: regular rhythm Heart sounds: S1 normal heart sound present and S2 normal heart sound present GI Inspection: Yes normal to inspection Palpation (GI): Soft to palpation, not firm, nontender and no guarding Percussion: Yes normal to percussion Neuro General: patient oriented x3 Extrem General: Yes full ROM Right upper extremity: No abnormal to inspection (Right shoulder and upper arm old bruising ) Course Course Course Narrative: 54-year-old female with past medical history of alcoholism, hypertension, syncope, head injury was brought by EMS. Patient was found to be wandering, picked up by [place] ED. Patient went to work this morning and had syncopal episode. Patient had syncopal episodes in the past. Multiple old bruizes found. Patient was drinking yesterday has syncopal episode at work this morning. Was working in a hot kitchen when that happened. Patient was sent home drank wine with her and went for a walk that's when she was found wandering around by the PD. Spoke with patient's daughter who reports that patient has been drinking heavily in the past year. Patient had episodes of syncope and wondering confused after drinking alcohol. Patient denies SI or HI. Will do CT scan of the head, urine drug screen although patient denies using any drugs, ETOH level. Reevaluation(s) Reevaluation #1: CT scan of the head negative. ETOH 274. Drug screen negative. Will call Care Team to talk to patient. Patient would like to leave. Will give her Ativan. ? of the allergy to Ativan, however patient used to take clonazepam and lorazepam in the past without any issues. Reevaluation #2: Chriss from Care Team spoke with patient. Patient would like to go home and talk to her . Patient is denying drinking every day. She reported to the Care team that she only drinks couple times a week. However patient is willing to stay here for little longer. Care team members will speak to the daughters. Patient continues to deny SI and HI Reevaluation #3: Patient's daughter will be coming up. Chriss from care team spoke to her. Daughter is planning to do section 35 Patients wants to go home with her daughter Patient is agreeable to this plan. Daughter Carito states that patient is safe to be discharge home. Medical Decision Making Lab Data Result diagrams: 08/23/21 15:44 08/23/21 15:44 Labs: Lab Results 08/23/21 08/23/21 08/23/21 Range/Units 15:44 15:44 15:44 WBC 5.7 (4.8-10.8) X10*3/uL RBC 4.24 (4.20-5.50) X10*6/uL Hgb 13.7 (12.0-16.0) g/dl Hct 41.9 (37.0-47.0) % MCV 98.8 H (80.0-98.0) fL MCH 32.3 (27.0-33.0) pg MCHC 32.7 (31.0-35.0) g/dl RDW 14.2 (11.0-16.0) % Plt Count 349 (160-400) X10*3/uL MPV 9.9 (9.4-12.3) fL Immature Gran % (Auto) 0.2 (0.0-0.4) % Neut % (Auto) 67.8 (45-73) % Lymph % (Auto) 21.7 (20-40) % [place] % (Auto) 8.5 (2-11) % Eos % (Auto) 0.7 (0-4) % Baso % (Auto) 1.1 (0-2) % Lymph # (Auto) 1.2 (1.2-4.9) X10*3/uL [place] # (Auto) 0.5 (0.1-1.2) X10*3/uL Eos # (Auto) 0.0 (0.0-0.4) X10*3/uL Baso # (Auto) 0.1 (0.0-0.2) X10*3/uL Abs Immat Gran (auto) 0.01 (0.00-0.03) X10*3/uL Absolute Neuts (auto) 3.9 (2.0-8.3) x10*3/uL Absolute Nucleated RBC 0.000 (0.0-0.012) X10*3/uL Nucleated RBC % (auto) 0.0 (0.0-0.2) /100WBC Sodium 141 (135-145) mmol/L Potassium 4.4 (3.3-5.1) mmol/L Chloride 104 (96-108) mmol/L Carbon Dioxide 24 (22-29) mmol/L Anion Gap 17 (12-20) BUN 12 (9-16) mg/dL Creatinine 0.76 (0.5-1.4) mg/dL Estim Creat Clear Calc 57.2 Estimated GFR > 60 Random Glucose 99 (60-115) mg/dL Calcium 10.3 H D (8.4-10.2) mg/dL Urine Opiates Screen (Not Detect) Urine Fentanyl Screen (Not Detect) Ur Barbiturates Screen (Not Detect) Ur Phencyclidine Scrn (Not Detect) Ur Amphetamines Screen (Not Detect) U Benzodiazepines Scrn (Not Detect) Urine Cocaine Screen (Not Detect) U Marijuana (THC) Screen (Not Detect) Ethyl Alcohol 274 mg/dL 08/23/21 Range/Units 15:44 WBC (4.8-10.8) X10*3/uL RBC (4.20-5.50) X10*6/uL Hgb (12.0-16.0) g/dl Hct (37.0-47.0) % MCV (80.0-98.0) fL MCH (27.0-33.0) pg MCHC (31.0-35.0) g/dl RDW (11.0-16.0) % Plt Count (160-400) X10*3/uL MPV (9.4-12.3) fL Immature Gran % (Auto) (0.0-0.4) % Neut % (Auto) (45-73) % Lymph % (Auto) (20-40) % [place] % (Auto) (2-11) % Eos % (Auto) (0-4) % Baso % (Auto) (0-2) % Lymph # (Auto) (1.2-4.9) X10*3/uL [place] # (Auto) (0.1-1.2) X10*3/uL Eos # (Auto) (0.0-0.4) X10*3/uL Baso # (Auto) (0.0-0.2) X10*3/uL Abs Immat Gran (auto) (0.00-0.03) X10*3/uL Absolute Neuts (auto) (2.0-8.3) x10*3/uL Absolute Nucleated RBC (0.0-0.012) X10*3/uL Nucleated RBC % (auto) (0.0-0.2) /100WBC Sodium (135-145) mmol/L Potassium (3.3-5.1) mmol/L Chloride (96-108) mmol/L Carbon Dioxide (22-29) mmol/L Anion Gap (12-20) BUN (9-16) mg/dL Creatinine (0.5-1.4) mg/dL Estim Creat Clear Calc Estimated GFR Random Glucose (60-115) mg/dL Calcium (8.4-10.2) mg/dL Urine Opiates Screen Not Detected (Not Detect) Urine Fentanyl Screen Not Detected (Not Detect) Ur Barbiturates Screen Not Detected (Not Detect) Ur Phencyclidine Scrn Not Detected (Not Detect) Ur Amphetamines Screen Not Detected (Not Detect) U Benzodiazepines Scrn Not Detected (Not Detect) Urine Cocaine Screen Not Detected (Not Detect) U Marijuana (THC) Screen Not Detected (Not Detect) Ethyl Alcohol mg/dL Imaging Data CT scan - head: Attestation: I personally reviewed and interpreted this imaging study as follows: Radiologist's impression: FINDINGS: There is no evidence of acute intracranial hemorrhage or territorial infarction. No abnormal mass effect or midline shift is seen. Gonzalez to white matter differentiation is well preserved. No extra-axial fluid collections are identified. There is generalized global volume loss. There is mild prominence of the ventricles and the sulci . There are vascular calcifications of the internal carotid arteries bilaterally. The osseous structures and soft tissues are normal. The mastoid air cells and visualized portions of the paranasal sinuses are well aerated. ? Discharge Plan Discharge Clinical Impression: ETOH abuse, Syncope Patient Disposition: Home, Self-Care Instructions: Abuse of Alcohol (DC), Alcohol Dependence (ED) Additional Instructions: You were brought to the hospital after wondering about in the house. Her alcohol level was high today. Your blood pressure food normal. Please follow- up with your primary care provider. Please try to seek detox. You may return to emergency department if you will have any concerning symptoms. Prescriptions: No Action acetaminophen [Tylenol Extra Strength] 500 mg tablet 1,000 mg PO QID PRN (Reason: fever or pain) Qty: 14 0RF acetaminophen 325 mg Tablet 325 mg PO BID PRN (Reason: Pain) 0RF melatonin 10 mg capsule 10 mg PO BEDTIME [id number] Referrals: Az Verduzco MD [Primary Care Provider] - 1 week Interventions: ED Discharge Assessment Last Done: 08/23/21 17:32 Discharge Date/Time: 08/23/21 17:35
--- NOTE | 2021-08-23 14:40 | ECG_ITS ---
Test Reason : SYNCOPE Blood Pressure : / mmHG Vent. Rate : 081 BPM Atrial Rate : 081 BPM P-R Int : 152 ms QRS Dur : 090 ms QT Int : 370 ms P-R-T Axes : 067 068 048 degrees QTc Int : 429 ms Normal sinus rhythm Cannot rule out Anterior infarct , age undetermined Abnormal ECG When compared with ECG of 15-JUL-2021 09:31, No significant change was found Referred By: Arelis Irby Electronically Signed By:DARIUS DAY
[2021-08-23 14:43] VITALS: BP 125/67; PULSE 86; RESP 16; O2SAT 100; BMI 19.3
[2021-08-23 14:48] VITALS: BP 148/86; PULSE 102; O2SAT 98
[2021-08-23] MEDS: LORazepam 1 MG TABLET PO ×2 (15:45→16:49)
[2021-08-23 15:50] LABS: MANUAL DIFF FLAG NO
[2021-08-23 16:06] LABS: Ethanol 274 mg/dL
[2021-08-23 16:07] LABS: Anion Gap 17 (12-20); Blood Urea Nitrogen 12 mg/dL (9-16); Calcium 10.3 mg/dL (8.4-10.2); Carbon Dioxide 24 mmol/L (22-29); Chloride 104 mmol/L (96-108); Creatinine Clr Calc Pharmacy 57.2; Estimated Glomerular Filt Rate > 60; Glucose Random 99 mg/dL (60-115); Potassium 4.4 mmol/L (3.3-5.1); Sodium 141 mmol/L (135-145)
[2021-08-23 16:08] LABS: Amphetamine Screen Urine Not Detected (Not Detect); Barbiturates, Urine Not Detected (Not Detect); Benzodiazepines Screen Urine Not Detected (Not Detect); Cannabinoid Screen Urine Not Detected (Not Detect); Cocaine Screen Urine Not Detected (Not Detect); Fentanyl, urine Not Detected (Not Detect); Opiate Screen Urine Not Detected (Not Detect); Phencyclidine Screen Urine Not Detected (Not Detect)
[2021-08-23 16:13] LABS: Basophils Absolute Auto 0.1 X10*3/uL (0.0-0.2); Basophils Percent Auto 1.1 % (0-2); Eosinophils Percent Auto 0.7 % (0-4); Hematocrit 41.9 % (37.0-47.0); Hemoglobin 13.7 g/dl (12.0-16.0); Imm Gran Abs Auto 0.01 X10*3/uL (0.00-0.03); Imm Gran Pct Auto 0.2 % (0.0-0.4); Lymphocytes Absolute Auto 1.2 X10*3/uL (1.2-4.9); Lymphocytes Percent Auto 21.7 % (20-40); Mean Corpuscular HGB Conc 32.7 g/dl (31.0-35.0); Mean Corpuscular Hemoglobin 32.3 pg (27.0-33.0); Mean Corpuscular Volume 98.8 fL (80.0-98.0); Mean Platelet Volume 9.9 fL (9.4-12.3); Monocytes Absolute Auto 0.5 X10*3/uL (0.1-1.2); Monocytes Percent Auto 8.5 % (2-11); Neutrophils Absolute Auto 3.9 x10*3/uL (2.0-8.3); Neutrophils Percent Auto 67.8 % (45-73); Platelet Count 349 X10*3/uL (160-400); Red Blood Count 4.24 X10*6/uL (4.20-5.50); Red Cell Distribution Width 14.2 % (11.0-16.0); White Blood Count 5.7 X10*3/uL (4.8-10.8)
--- NOTE | 2021-08-23 17:32 | MHC.RECOVSUP ---
Recovery Support note: Patient is a 64 year old Faroese speaking female who presented to [facility] ED after being found in the community intoxicated and confused. This parts data writer met with patient to discuss alcohol use and treatment options. 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 Patient reports her blood pressure is through the roof due to the stress and that she plans to stop working there. Patient minimizes her alcohol use to this parts data writer, stating that she drinks to cope with the stress of work and that she drinks 2-3 days a week and only has 2-3 drinks. Patient reports on bad days, like today, she will drink more than she should. Patient acknowledges the negative health consequences of alcohol use and also recognizes that her alcohol use put her in a dangerous situation today. Patient declines resources on recovery supports or treatment options. Patient reports she stays busy by exercising and states that her drinking is much better than it has been in the past. This parts data writer spoke with patient's Daughter, Carito ([phone]), who reports patient and her drink excessively daily. Daughter reports patient is a danger to herself due to her drinking. Discussed voluntary and involuntary substance use treatment options with daughter. Daughter plans to file a section 35 on Wednesday. Discussed case with patient's ED provider. Daughter picked patient up upon discharge.
== END 2021-08-23 17:35 | disposition home or self-care (01) ==
PROVIDERS: Nurse Practitioner Family; Emergency Provider Emergency Medicine Emergency Medical Services; PCP Internal Medicine
DX: F10.20 Alcohol dependence, uncomplicated (principal); Y90.8 Blood alcohol level of 240 mg/100 ml or more; R55 Syncope and collapse
CPT/HCPCS: 36415; 70450; 80048; 80307; 82077; 85025; 93005; 99283; 99284

== ENCOUNTER 2022-01-14 22:26 | Emergency (ER) | payer OTHER, SELFPAY ==
[2022-01-14 22:39] VITALS: BP 115/87; PULSE 91; RESP 18; TEMP 36.6; O2SAT 100
--- NOTE | 2022-01-14 22:40 | ECG_ITS ---
Test Reason : INTOXICATION Blood Pressure : / mmHG Vent. Rate : 080 BPM Atrial Rate : 080 BPM P-R Int : 156 ms QRS Dur : 096 ms QT Int : 364 ms P-R-T Axes : 078 056 056 degrees QTc Int : 419 ms Normal sinus rhythm Incomplete right bundle branch block Borderline ECG When compared with ECG of 23-AUG-2021 15:08, No significant change was found Referred By: Amanda To Electronically Signed By:DARIUS DAY
[2022-01-14 22:41] VITALS: BP 140/82; PULSE 88; PULSE 93; RESP 16; TEMP 36.7; O2SAT 93; BMI 19.2
--- NOTE | 2022-01-14 22:41 | ED_ITS ---
HPI - General Adult General Chief complaint: ETOH/Substance Use Stated complaint: ETOH Time Seen by Provider: 01/14/22 22:35 Source: patient and EMS Mode of arrival: EMS Limitations: no limitations History of Present Illness HPI narrative: Patient comes to the emergency room via EMS. Patient's family reported her missing. Police department found the patient wandering in the street. Patient is known to drink a large amount of alcohol. Patient denies falling. Patient states that 2 days ago she has syncopal episode, denies drinking alcohol while she was at work. However, patient states that the kitchen was very hot, had been complaining about the extreme heat and eventually had syncopal episode for couple of minutes. Patient states she did not have chest pain or shortness of breath. At this time, patient has no chest pain or shortness of breath, no recurrent syncopal episodes since she was working in the hot kitchen. According to EMS, when patient was found by police department, patient was very aggressive, combative. Patient was handcuffed. Here in the emergency room, patient is not and cough, calm, cooperative and redirectable Related Data Home Medications Medication Instructions Recorded Confirmed acetaminophen 325 mg tablet 325 mg PO BID PRN Pain 05/06/21 08/01/21 melatonin 10 mg capsule 10 mg PO BEDTIME PRN 07/23/21 08/01/21 Previous Rx's Medication Instructions Recorded acetaminophen 500 mg tablet 1,000 mg PO QID PRN fever or pain 07/15/21 (Tylenol Extra Strength) #14 tabs Allergies Allergy/AdvReac Type Severity Reaction Status Date / Time clonazepam Allergy Unknown amnesia, Verified 07/23/21 10:26 suicidal thoughts lorazepam Allergy Unknown unknown Verified 07/23/21 10:26 sertraline [Zoloft] AdvReac Unknown unknown Verified 07/23/21 10:26 From WELLBUTRIN Allergy Unknown PATIENT Uncoded 07/23/21 10:26 BECOMES INSANE From ZOLOFT Allergy Unknown PT BECOMES Uncoded 07/23/21 10:26 INSANE Wellbutrin Allergy Unknown unknown Uncoded 07/23/21 10:26 ambien AdvReac Unknown night Uncoded 07/23/21 10:26 mare, suicidal thoughts Review of Systems Review of Systems: Constitutional : No Weight loss, No Fever, No Chills, No Night Sweats, No Fatigue, No Malaise ENT/Mouth : No Hearing loss, No Ear Pain, No Nasal Congestion, No Sinus Pain, No Hoarseness, No sore throat, No Rhinorrhea, No Swallowing Difficulty Eyes: No Eye Pain, No Swelling, No Redness, No Foreign Body, No Discharge, No V ision Changes Cardiovascular : No Chest Pain, No SOB, No Dyspnea on Exertion, No Orthopnea, No Edema, No Palpitations Respiratory : No Cough, No Sputum, No Wheezing, No Smoke Exposure, No Dyspnea Gastrointestinal : No Nausea, No Vomiting, No Diarrhea, No Constipation, No abdominal Pain, No Hematochezia, No Melena Genitourinary : no irregular bleeding, No Dysuria, No Urinary Frequency, No Hematuria, No Urinary Incontinence, No Urgency, No Flank Pain, No Urinary Flow Changes, No Hesitancy Musculoskeletal : No joint pain, No Myalgias, No Joint Swelling Skin : No Skin Lesions, No rash Neuro : No Weakness, No Numbness, No Paresthesias, complaining of syncopal episode Psych : No Anxiety/Panic, No Depression, No SI/HI/AH/VH, admits to drinking alcohol Heme/Lymph: No Bruising, No Bleeding,No Lymphadenopathy Endocrine : No Polyuria, No Polydipsia, No Temperature Intolerance [facility] Past Medical History Medical History (Updated 01/14/22 @ 22:48 by Amanda To MD) Alcoholism Cataract Subdural bleeding Surgical History Hx of section Social History Social History Household Members: Spouse, Children and Other Household Members Other:: grandchild Housing: Apartment Alcohol intake: current Alcohol intake frequency: 3 or more drinks per day Patient Tobacco Use Status: Never used Tobacco Second Hand Smoke Exposure: No Advance Directives: Yes Advance Directives on File: Yes Advance Directives Date on File: 08/23/21 Current occupational status: employed 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 Oriented X3. No acute distress. Eyes: Pupils equal, round and reactive to light. ENT: Pharynx normal. Neck: Normal inspection. Neck supple. No lymph nodes noted. No crepitus CVS: Normal heart rate and rhythm. Pulses normal. Normal S1 and S2 Respiratory: No respiratory distress. Breath sounds normal. No Wheezing. No rales Abdomen: Soft and nontender. No rigidity. No distention. Skin: Skin warm and dry. Normal skin color. Normal skin turgor. Extremities: No lower extremity edema. No Lacerations. No Rash Neuro: Oriented X 3. No motor deficit. No sensory deficit. Moving all extremities. No slurred speech. CN 2 through 12 grossly intact Psych: calm, cooperative, normal affect Course Course Course Narrative: Labs and EKG pending. 23:30, I was informed by the patient's nurse and charge nurse that the patient eloped before any of her labs resolved. Patient was seen by our staff walking with a steady gait. Medical Decision Making Lab Data Result diagrams: 01/14/22 23:01 01/14/22 23:01 Labs: Lab Results 01/14/22 01/14/22 01/14/22 Range/Units 23:01 23:01 23:01 WBC 5.1 (4.8-10.8) X10*3/uL RBC 4.20 (4.20-5.50) X10*6/uL Hgb 13.4 (12.0-16.0) g/dl Hct 39.8 (37.0-47.0) % MCV 94.8 (80.0-98.0) fL MCH 31.9 (27.0-33.0) pg MCHC 33.7 (31.0-35.0) g/dl RDW 13.6 (11.0-16.0) % Plt Count 293 (160-400) X10*3/uL MPV 9.8 (9.4-12.3) fL Immature Gran % (Auto) 0.2 (0.0-0.4) % Neut % (Auto) 56.9 (45-73) % Lymph % (Auto) 29.8 (20-40) % [place] % (Auto) 9.5 (2-11) % Eos % (Auto) 2.2 (0-4) % Baso % (Auto) 1.4 (0-2) % Lymph # (Auto) 1.5 (1.2-4.9) X10*3/uL [place] # (Auto) 0.5 (0.1-1.2) X10*3/uL Eos # (Auto) 0.1 (0.0-0.4) X10*3/uL Baso # (Auto) 0.1 (0.0-0.2) X10*3/uL Abs Immat Gran (auto) 0.01 (0.00-0.03) X10*3/uL Absolute Neuts (auto) 2.9 (2.0-8.3) x10*3/uL Absolute Nucleated RBC 0.000 (0.0-0.012) X10*3/uL Nucleated RBC % (auto) 0.0 (0.0-0.2) /100WBC PT (10.0-13.1) SEC INR (0.9-1.1) D-Dimer High Sensitivty NG/ML Sodium 145 (135-145) mmol/L Potassium 4.3 (3.3-5.1) mmol/L Chloride 107 (96-108) mmol/L Carbon Dioxide 25 (22-29) mmol/L Anion Gap 17 (12-20) BUN 20 H D (9-16) mg/dL Creatinine 0.90 (0.5-1.4) mg/dL Estim Creat Clear Calc 47.4 Estimated GFR > 60 Random Glucose 94 (60-115) mg/dL Calcium 9.6 D (8.4-10.2) mg/dL Magnesium 2.1 (1.6-2.6) mg/dL Total Bilirubin < 0.2 (0.0-1.0) mg/dL Direct Bilirubin < 0.2 (0.0-0.5) mg/dL AST 36 H D (5-31) U/L ALT 20 (0-31) U/L Alkaline Phosphatase 69 (39-117) U/L Ammonia (13-55) umol/L Troponin I High Sens 4.6 (<3.5-17.0) ng/L Total Protein 7.5 (6.5-8.0) g/dL Albumin 4.4 (3.5-5.0) g/dL Ethyl Alcohol mg/dL 01/14/22 01/14/22 01/14/22 Range/Units 23:02 23:02 23:02 WBC (4.8-10.8) X10*3/uL RBC (4.20-5.50) X10*6/uL Hgb (12.0-16.0) g/dl Hct (37.0-47.0) % MCV (80.0-98.0) fL MCH (27.0-33.0) pg MCHC (31.0-35.0) g/dl RDW (11.0-16.0) % Plt Count (160-400) X10*3/uL MPV (9.4-12.3) fL Immature Gran % (Auto) (0.0-0.4) % Neut % (Auto) (45-73) % Lymph % (Auto) (20-40) % [place] % (Auto) (2-11) % Eos % (Auto) (0-4) % Baso % (Auto) (0-2) % Lymph # (Auto) (1.2-4.9) X10*3/uL [place] # (Auto) (0.1-1.2) X10*3/uL Eos # (Auto) (0.0-0.4) X10*3/uL Baso # (Auto) (0.0-0.2) X10*3/uL Abs Immat Gran (auto) (0.00-0.03) X10*3/uL Absolute Neuts (auto) (2.0-8.3) x10*3/uL Absolute Nucleated RBC (0.0-0.012) X10*3/uL Nucleated RBC % (auto) (0.0-0.2) /100WBC PT 10.7 (10.0-13.1) SEC INR 0.9 (0.9-1.1) D-Dimer High Sensitivty NG/ML Sodium (135-145) mmol/L Potassium (3.3-5.1) mmol/L Chloride (96-108) mmol/L Carbon Dioxide (22-29) mmol/L Anion Gap (12-20) BUN (9-16) mg/dL Creatinine (0.5-1.4) mg/dL Estim Creat Clear Calc Estimated GFR Random Glucose (60-115) mg/dL Calcium (8.4-10.2) mg/dL Magnesium (1.6-2.6) mg/dL Total Bilirubin (0.0-1.0) mg/dL Direct Bilirubin (0.0-0.5) mg/dL AST (5-31) U/L ALT (0-31) U/L Alkaline Phosphatase (39-117) U/L Ammonia 26 (13-55) umol/L Troponin I High Sens (<3.5-17.0) ng/L Total Protein (6.5-8.0) g/dL Albumin (3.5-5.0) g/dL Ethyl Alcohol 283 mg/dL 01/14/22 Range/Units 23:02 WBC (4.8-10.8) X10*3/uL RBC (4.20-5.50) X10*6/uL Hgb (12.0-16.0) g/dl Hct (37.0-47.0) % MCV (80.0-98.0) fL MCH (27.0-33.0) pg MCHC (31.0-35.0) g/dl RDW (11.0-16.0) % Plt Count (160-400) X10*3/uL MPV (9.4-12.3) fL Immature Gran % (Auto) (0.0-0.4) % Neut % (Auto) (45-73) % Lymph % (Auto) (20-40) % [place] % (Auto) (2-11) % Eos % (Auto) (0-4) % Baso % (Auto) (0-2) % Lymph # (Auto) (1.2-4.9) X10*3/uL [place] # (Auto) (0.1-1.2) X10*3/uL Eos # (Auto) (0.0-0.4) X10*3/uL Baso # (Auto) (0.0-0.2) X10*3/uL Abs Immat Gran (auto) (0.00-0.03) X10*3/uL Absolute Neuts (auto) (2.0-8.3) x10*3/uL Absolute Nucleated RBC (0.0-0.012) X10*3/uL Nucleated RBC % (auto) (0.0-0.2) /100WBC PT (10.0-13.1) SEC INR (0.9-1.1) D-Dimer High Sensitivty 159 NG/ML Sodium (135-145) mmol/L Potassium (3.3-5.1) mmol/L Chloride (96-108) mmol/L Carbon Dioxide (22-29) mmol/L Anion Gap (12-20) BUN (9-16) mg/dL Creatinine (0.5-1.4) mg/dL Estim Creat Clear Calc Estimated GFR Random Glucose (60-115) mg/dL Calcium (8.4-10.2) mg/dL Magnesium (1.6-2.6) mg/dL Total Bilirubin (0.0-1.0) mg/dL Direct Bilirubin (0.0-0.5) mg/dL AST (5-31) U/L ALT (0-31) U/L Alkaline Phosphatase (39-117) U/L Ammonia (13-55) umol/L Troponin I High Sens (<3.5-17.0) ng/L Total Protein (6.5-8.0) g/dL Albumin (3.5-5.0) g/dL Ethyl Alcohol mg/dL Discharge Plan Discharge Clinical Impression: Alcohol intoxication, Syncope Patient Disposition: Elopement Prescriptions: No Action acetaminophen [Tylenol Extra Strength] 500 mg tablet 1,000 mg PO QID PRN (Reason: fever or pain) Qty: 14 0RF acetaminophen 325 mg Tablet 325 mg PO BID PRN (Reason: Pain) melatonin 10 mg capsule 10 mg PO BEDTIME PRN Interventions: ED Discharge Assessment Last Done: 01/14/22 23:36
[2022-01-14 23:08] LABS: Basophils Absolute Auto 0.1 X10*3/uL (0.0-0.2); Basophils Percent Auto 1.4 % (0-2); Eosinophils Absolute Auto 0.1 X10*3/uL (0.0-0.4); Eosinophils Percent Auto 2.2 % (0-4); Hematocrit 39.8 % (37.0-47.0); Hemoglobin 13.4 g/dl (12.0-16.0); Imm Gran Abs Auto 0.01 X10*3/uL (0.00-0.03); Imm Gran Pct Auto 0.2 % (0.0-0.4); Lymphocytes Absolute Auto 1.5 X10*3/uL (1.2-4.9); Lymphocytes Percent Auto 29.8 % (20-40); MANUAL DIFF FLAG NO; Mean Corpuscular HGB Conc 33.7 g/dl (31.0-35.0); Mean Corpuscular Hemoglobin 31.9 pg (27.0-33.0); Mean Corpuscular Volume 94.8 fL (80.0-98.0); Mean Platelet Volume 9.8 fL (9.4-12.3); Monocytes Absolute Auto 0.5 X10*3/uL (0.1-1.2); Monocytes Percent Auto 9.5 % (2-11); Neutrophils Absolute Auto 2.9 x10*3/uL (2.0-8.3); Neutrophils Percent Auto 56.9 % (45-73); Platelet Count 293 X10*3/uL (160-400); Red Cell Distribution Width 13.6 % (11.0-16.0); White Blood Count 5.1 X10*3/uL (4.8-10.8)
[2022-01-14 23:13] LABS: INTERNATIONAL NORM RATIO 0.9 (0.9-1.1); Prothrombin Time 10.7 SEC (10.0-13.1)
[2022-01-14 23:15] LABS: D Dimer High Sensitivity 159 NG/ML
[2022-01-14 23:19] LABS: Ammonia 26 umol/L (13-55)
[2022-01-14 23:22] LABS: Ethanol 283 mg/dL
[2022-01-14 23:26] LABS: Alanine Aminotransferase 20 U/L (0-31); Albumin Level 4.4 g/dL (3.5-5.0); Alkaline Phosphatase 69 U/L (39-117); Anion Gap 17 (12-20); Aspartate Amino Transferase 36 U/L (5-31); Bilirubin Direct < 0.2 mg/dL (0.0-0.5); Bilirubin Total < 0.2 mg/dL (0.0-1.0); Blood Urea Nitrogen 20 mg/dL (9-16); Calcium 9.6 mg/dL (8.4-10.2); Carbon Dioxide 25 mmol/L (22-29); Chloride 107 mmol/L (96-108); Creatinine Clr Calc Pharmacy 47.4; Estimated Glomerular Filt Rate > 60; Glucose Random 94 mg/dL (60-115); Magnesium 2.1 mg/dL (1.6-2.6); Potassium 4.3 mmol/L (3.3-5.1); Sodium 145 mmol/L (135-145); Total Protein 7.5 g/dL (6.5-8.0)
[2022-01-14 23:27] LABS: Troponin-I High Sensitivity 4.6 ng/L (<3.5-17.0)
--- NOTE | 2022-01-14 23:33 | PC.NURSE ---
pt appears to have eloped at 2330, Dr. To aware
== END 2022-01-14 23:41 | disposition left against medical advice (07) ==
PROVIDERS: Emergency Provider Emergency Medicine; PCP Internal Medicine
DX: F10.220 Alcohol dependence with intoxication, uncomplicated (principal); Y90.8 Blood alcohol level of 240 mg/100 ml or more; R55 Syncope and collapse
CPT/HCPCS: 36415; 80048; 80076; 82077; 82140; 83735; 84484; 85025; 85379; 85610; 93005; 99283; 99284

== ENCOUNTER 2022-04-29 11:00 | Emergency (ER) | payer OTHER, SELFPAY ==
--- NOTE | ~2022-04-29 | CT_ITS ---
CT head/brain wo IV con, CT facial bones wo IV con CLINICAL INFORMATION: Fall COMPARISON: No prior CT scan available for comparison. TECHNIQUE: Department standard protocol. This CT examination was performed using dose optimization techniques as appropriate, variously including the following: *Automated exposure control *Adjustment of mA and/or kV according to patient size (this includes techniques or standardized protocols for targeted exams where dose is matched to indication/reason for exam; i.e. extremities or head) *Use of iterative reconstruction technique DLP: 676 mGy-cm FINDINGS: CEREBRAL HEMISPHERES: There is no evidence of intra-axial or extra-axial mass, hemorrhage or acute infarct. BRAIN PARENCHYMA: Normal lares-white matter differentiation. SUBDURAL SPACE: Calcified the structure protruding from the inner table of the left frontal bone into the subdural space measuring about 8 mm likely calcified meningioma or osteoma. No subdural bleed. BASAL GANGLIA AND PINEAL GLAND: Unremarkable VENTRICLES: Symmetric and normal in size. CEREBELLUM AND BRAINSTEM: No space-occupying mass, hemorrhage or acute infarct. CEREBELLOPONTINE ANGLES: No lesion found. ORBITS: No intraorbital mass. VESSELS: Unremarkable SKULL BASE: Unremarkable INCLUDED SINUSES AT SKULL BASE: Clear SKULL AND SKIN: Extracalvarial subcutaneous hematoma right frontoparietal region roughly measures 3.3 x 0.9 cm, underlying skull is intact. No intracranial bleed. FACIAL BONE CT FINDINGS : SKULL BASE: Included structures at skull base are normal. BONES: There are radiolucent line through the right and left nasal bones without soft tissue swelling, these could be old nondisplaced fractures remnant of suture lines. Skull base, orbital bones, , maxillary bones, mandibles, zygomatic arches, and included cervical vertebrae are normal. ORBITS: Globes are symmetric. Orbital structures are normal. SALIVARY GLANDS: Unremarkable SINUSES: Clear CT/CT facial bones wo IV con IMPRESSION: 1. Extracalvarial subcutaneous hematoma right frontoparietal region. 2. No intracranial bleed. 3. Radiolucent line through the right and left nasal bones without soft tissue swelling, these could be old nondisplaced fractures or remnant of suture lines. 4. Calcified 8 mm structure protruding from the inner table of the left frontal bone into the subdural space likely calcified meningioma or osteoma.
[2022-04-29 11:03] VITALS: BP 156/77; PULSE 83; RESP 20; TEMP 36.6; O2SAT 100; BMI 19.2
--- NOTE | 2022-04-29 11:23 | ED.EYEPROB ---
HPI - Eye Problem General Chief complaint: Eye Problems Stated complaint: R Eye Injury 04/28/22 Time Seen by Provider: 04/29/22 11:14 Source: patient Mode of arrival: ambulatory Limitations: no limitations History of Present Illness HPI Narrative: patient fell down the stairs yesterday and hit her right eye. No LOC, She noticed bruising and blood in her eye. Patient able to see well. No pain. Patient has been taking advil after the fall. chief complaint: eye injury Onset (ago): hour(s) Onset description: sudden Duration: constant Location: right eye Place: home Severity: moderate Associated symptoms: other (bruising) Related Data Home Medications Medication Instructions Recorded Confirmed acetaminophen 325 mg tablet 325 mg PO BID PRN Pain 05/06/21 08/01/21 melatonin 10 mg capsule 10 mg PO BEDTIME PRN 07/23/21 08/01/21 Previous Rx's Medication Instructions Recorded acetaminophen 500 mg tablet 1,000 mg PO QID PRN fever or pain 07/15/21 (Tylenol Extra Strength) #14 tabs Allergies Allergy/AdvReac Type Severity Reaction Status Date / Time clonazepam Allergy Unknown amnesia, Verified 07/23/21 10:26 suicidal thoughts lorazepam Allergy Unknown unknown Verified 07/23/21 10:26 sertraline [Zoloft] AdvReac Unknown unknown Verified 07/23/21 10:26 From WELLBUTRIN Allergy Unknown PATIENT Uncoded 07/23/21 10:26 BECOMES INSANE From ZOLOFT Allergy Unknown PT BECOMES Uncoded 07/23/21 10:26 INSANE Wellbutrin Allergy Unknown unknown Uncoded 07/23/21 10:26 ambien AdvReac Unknown night Uncoded 07/23/21 10:26 mare, suicidal thoughts Review of Systems Review of Systems: Yes all other systems are reviewed and are negative Neurologic: Denies Sensory deficit (Neuro) [facility] Past Medical History Medical History Alcoholism Cataract Subdural bleeding Surgical History Hx of section Social History Social History Household Members: Spouse, Children and Other Household Members Other:: grandchild Housing: Apartment Alcohol intake: current Alcohol intake frequency: 3 or more drinks per day Patient Tobacco Use Status: Never used Tobacco Second Hand Smoke Exposure: No Advance Directives: Yes Advance Directives on File: Yes Advance Directives Date on File: 08/23/21 Current occupational status: employed 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 Physical Exam Vital Signs: Vital Signs: Last Vital Signs Temp 99.3 F 04/29/22 11:47 Pulse 68 04/29/22 11:47 Resp 17 04/29/22 11:47 BP 114/93 H 04/29/22 11:47 Pulse Ox 98 04/29/22 11:47 O2 Del Method 04/29/22 11:47 BMI result Body Mass Index 19.2 Const: General: healthy appearing Nutritional Appearance: average body habitus Orientation/consciousness: oriented to person and patient oriented x3 Limitations: no limitations HEENT: Other: periorbital hematoma to right eye Head: Yes normal to inspection Ears: external ears normal General nose exam: Normal external nose present Mouth: Normal oral and palatal mucosa present and oropharynx normal Throat: Yes posterior oropharynx normal Eyes: Other: right subconjunctival bleeding Neck: Other: supple Neck: Yes normal visual inspection Chest: Chest palpation & inspection: normal inspection of the chest Resp: Auscultation: clear to auscultation bilaterally Cardio: Jugular venous distension: no JVD Rate: regular rate Rhythm: regular rhythm Heart sounds: S1 normal heart sound present and S2 normal heart sound present GI: Inspection: Yes normal to inspection Palpation (GI): Soft to palpation, nontender and No hepatosplenomegaly present Auscultation: normal bowel sounds : General: Yes no CVA tenderness Back/Spine/Pelvis: Back: no CVA tenderness Skin: General skin exam: no rashes or lesions noted Neuro: General: oriented to person and patient oriented x3 Cranial nerves: Yes CN's II-XII intact bilaterally Motor exam (neuro): 5/5 motor strength present throughout Sensory Exam: No Sensory deficit (Neuro) Extrem: General: Yes normal to inspection Psych: Appearance: grossly normal Course Reevaluation(s) Reevaluation #1: patient with likely subtle nasal fracture and subconjunctival hemorrhage will dc home Time: 13:45 MDM - Eye Problem Imaging Data head and face CT: Radiologist's impression: IMPRESSION: 1.? Extracalvarial subcutaneous hematoma right frontoparietal region. 2.? No intracranial bleed. 3.? Radiolucent line through the right and left nasal bones without soft tissue swelling, these could be old nondisplaced fractures or remnant of suture lines. 4.? Calcified 8 mm structure protruding from the inner table of the left frontal bone into the subdural space likely calcified meningioma or osteoma. ? Dictated By: Mariela Nobles MD Signed By: <Electronically signed by Mariela Nobles MD in [place]> 04/29/22 1309 Discharge Plan Discharge Clinical Impression: SUNITA (subconjunctival hemorrhage), Closed fracture nasal bone Patient Disposition: Home, Self-Care Instructions: Subconjunctival Hemorrhage (ED), Nasal Fracture (ED) Prescriptions: No Action acetaminophen [Tylenol Extra Strength] 500 mg tablet 1,000 mg PO QID PRN (Reason: fever or pain) Qty: 14 0RF acetaminophen 325 mg Tablet 325 mg PO BID PRN (Reason: Pain) melatonin 10 mg capsule 10 mg PO BEDTIME PRN Referrals: Az Verduzco MD [Primary Care Provider] - 1 week
[2022-04-29 11:47] VITALS: BP 114/93; PULSE 68; RESP 17; TEMP 37.4; O2SAT 98
== END 2022-04-29 14:32 | disposition home or self-care (01) ==
PROVIDERS: Emergency Provider Emergency Medicine; PCP Internal Medicine
DX: S02.2XXA Fracture of nasal bones, initial encounter for closed fracture (principal); H11.31 Conjunctival hemorrhage, right eye; R51.9 Headache, unspecified; W10.9XXA Fall (on) (from) unspecified stairs and steps, initial encounter; Y93.9 Activity, unspecified; Y92.9 Unspecified place or not applicable; Y99.9 Unspecified external cause status
CPT/HCPCS: 70450; 70486; 99283; 99284

== ENCOUNTER 2022-05-01 07:17 | Emergency (ER) | payer OTHER, SELFPAY ==
[2022-05-01 07:39] VITALS: BP 165/87; PULSE 76; RESP 16; TEMP 36.3; O2SAT 99; BMI 19.2
--- NOTE | 2022-05-01 07:59 | ED.GENADULT ---
HPI - General Adult General Chief complaint: Eye Problems Stated complaint: puss in eye Time Seen by Provider: 05/01/22 07:58 Source: patient Mode of arrival: ambulatory Limitations: no limitations History of Present Illness HPI narrative: Patient is a 65 year old assigned female at with a history of corneal transplant presenting to the emergency department today with right eye discharge. Patient states that she was seen here 2 days ago after falling down some stairs and hurting her right eye. Patient states that she was seen here then and told that everything was OK and to follow up with her physician specialist. She states today she woke up and had some discharge from her eye that was concerning. Patient denies any dizziness, lightheadedness, abdominal pain, nausea, vomiting, fever, chills, blurry vision, double vision, loss of vision, chest pain, difficulty breathing, shortness of breath, back pain, night sweats, pain with urination, increased urinary frequency, increased urinary urgency, blood in her urine or stool, syncope or a near syncopal episode, bowel incontinence, bladder incontinence, bowel retention, bladder retention, or any other complaints at this time. Onset (ago): hour(s) Location: eyes (right) Radiation: non-radiation Severity: mild Severity scale (1-10): 2 Relieving factors: none Exacerbating factors: none Associated symptoms: denies other symptoms Treatments prior to arrival: none Related Data Home Medications Medication Instructions Recorded Confirmed acetaminophen 325 mg tablet 325 mg PO BID PRN Pain 05/06/21 08/01/21 melatonin 10 mg capsule 10 mg PO BEDTIME PRN 07/23/21 08/01/21 Previous Rx's Medication Instructions Recorded acetaminophen 500 mg tablet 1,000 mg PO QID PRN fever or pain 07/15/21 (Tylenol Extra Strength) #14 tabs sulfacetamide sodium 10 % eye drops 1 drp ophthalmic-Right Q4H 7 days 05/01/22 #15 mL Allergies Allergy/AdvReac Type Severity Reaction Status Date / Time clonazepam Allergy Unknown amnesia, Verified 07/23/21 10:26 suicidal thoughts lorazepam Allergy Unknown unknown Verified 07/23/21 10:26 sertraline [Zoloft] AdvReac Unknown unknown Verified 07/23/21 10:26 From WELLBUTRIN Allergy Unknown PATIENT Uncoded 07/23/21 10:26 BECOMES INSANE From ZOLOFT Allergy Unknown PT BECOMES Uncoded 07/23/21 10:26 INSANE Wellbutrin Allergy Unknown unknown Uncoded 07/23/21 10:26 ambien AdvReac Unknown night Uncoded 07/23/21 10:26 mare, suicidal thoughts Review of Systems Constitutional: Constitutional: Reports no additional constitutional complaints, Denies chills, Denies fever(s) and Denies night sweats Eyes: Eyes: Reports no additional eye complaints, Denies blurry vision, Denies change in vision, Denies diplopia, Reports eye discharge (from right eye), Denies loss of vision and Denies eye pain ENT: Denies dizziness Cardiovascular: Cardiovascular: Reports no additional cardiovascular complaints, Denies chest pain, Denies lightheadedness, Denies Loss of Consciousness and Denies dyspnea Respiratory: Respiratory: Reports no additional respiratory complaints and Denies dyspnea Gastrointestinal: Gastrointestinal: Reports no additional gastrointestinal complaints, Denies abdominal pain, Denies melena, Denies hematochezia, Denies change in bowel habits and Denies change in stool character Genitourinary: Genitourinary: Denies hematuria, Denies urinary frequency, Denies dysuria, Denies urinary incontinence, Denies urinary hesitancy and Denies urinary urgency Musculoskeletal: Musculoskeletal: Reports no additional musculoskeletal complaints, Denies numbness and Denies tingling Neurologic: Denies dizziness, Denies loss of vision, Denies numbness and Denies tingling Psychiatric: Psychiatric: Reports no additional psychiatric complaints Endocrine: Endocrine: Reports no additional endocrine complaints Hematologic/Lymphatic: Hematologic/Lymphatic: Reports no additional hematologic/lymphatic complaints Allergic/Immunologic: Allergic/Immunologic: Reports no additional allergic/immunologic complaints [facility] Past Medical History Attestation statement: The following information was validated with the patient. 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 Physical Exam ED Vital Signs: Vital Signs - 24 hr 05/01/22 07:39 Temperature 97.3 F Pulse Rate 76 Respiratory Rate 16 Blood Pressure 165/87 H Pulse Oximetry 99 Oxygen Delivery Method Room Air BMI result Body Mass Index 19.2 Const General: cooperative, no acute distress, alert and awake Nutritional Appearance: well nourished Orientation/consciousness: patient oriented x3 Limitations: no limitations HENMT Head: Yes normal to inspection and Yes atraumatic Ears: hearing grossly normal bilaterally and external ears normal General nose exam: Normal external nose present, no nasal discharge noted and no epistaxis Face and sinus: Yes normal facial exam, No abrasion and No laceration Mouth: Normal oral and palatal mucosa present, no drooling and no muffled voice Eyes Periorbital: periorbital findings normal Eyelids: Yes eyelids normal Conjunctivae: other (right subconjunctival hemorrhage) Pupils: Equal, round and reactive pupils present EOM: EOMs intact bilaterally Neck Neck: Yes normal visual inspection, Yes full ROM and Yes no lymphadenopathy Chest Chest palpation & inspection: normal inspection of the chest Resp Effort & Inspection: normal respiratory effort and able to speak in complete sentences Auscultation: clear to auscultation bilaterally Cardio Rate: regular rate Rhythm: regular rhythm GI Inspection: Yes normal to inspection Neuro General: patient oriented x3 and moves all extremities Cranial nerves: Yes Equal, round and reactive pupils present Cognition (Neuro): normal cognition Motor exam (neuro): 5/5 motor strength present throughout Sensory Exam: Normal double simultaneous stimulation for sensation Coordination: [id number] test normal Extrem General: Yes normal to inspection, Yes full ROM and Yes capillary refill normal Psych Appearance: grossly normal Mental Status: mental status grossly normal Affect: normal affect Attitude: cooperative Thought process: Normal thought process present Thought content: Normal thought content present Insight: Good insight present (Psych) Medical Decision Making MDM Narrative Medical decision making narrative: Patient is a 65 year old assigned female at with a history of corneal transplant presenting to the emergency department today with right eye discharge. Patient's physical exam showed right subconjunctival hemorrhage but was otherwise unremarkable. Patient's EOMs were intact. Patient's vision was normal, bilaterally. Right globe was in tact. I explained my physical exam findings to the patient. I answered all questions asked by the patient. I consulted with my attending physician Dr. Cardenas who agreed that the patient should be started on an antibiotic eye drop and follow up with her physician specialist. I stressed the importance of the patient taking her medication as prescribed. I stressed the importance of the patient following up with her primary care provider and her physician specialist. I stressed the importance of the patient returning to the emergency department immediately if her symptoms were to worsen or if she were to develop any dizziness, shortness of breath, difficulty breathing, chest pain, blurry vision, loss of vision, nausea, vomiting, abdominal pain, fever, chills, back pain, or any other complaints. Patient verbalized agreement and understanding with this treatment plan and discharge. Medical Records Medical records reviewed: Yes I reviewed the patient's medical records. Discharge Plan Discharge Clinical Impression: Subconjunctival hemorrhage Patient Disposition: Home, Self-Care Instructions: Subconjunctival Hemorrhage (ED) Additional Instructions: Follow up with your primary care provider and an supervisor esters and emulsifiers. Return to the emergency department immediately if your symptoms worsen or if you develop any dizziness, shortness of breath, difficulty breathing, chest pain, blurry vision, loss of vision, nausea, vomiting, abdominal pain, fever, chills, back pain, or any other complaints. Prescriptions: New sulfacetamide sodium 10 % drops 1 drp ophthalmic-Right Q4H 7 Days Qty: 15 0RF No Action acetaminophen [Tylenol Extra Strength] 500 mg tablet 1,000 mg PO QID PRN (Reason: fever or pain) Qty: 14 0RF acetaminophen 325 mg Tablet 325 mg PO BID PRN (Reason: Pain) melatonin 10 mg capsule 10 mg PO BEDTIME PRN Referrals: Az Verduzco MD [Primary Care Provider] - Interventions: ED Discharge Assessment Last Done: 05/01/22 09:34 Discharge Date/Time: 05/01/22 09:00 Print Language: Czech
--- NOTE | 2022-05-01 09:00 | PC.NURSE ---
patient a/ox4 . went over discharge instruction as ordered by provider . patient given contact information for follow up with trim operator . patient to return to ed if symptoms worsen . no questions at this time .
== END 2022-05-01 09:00 | disposition home or self-care (01) ==
PROVIDERS: Emergency Provider Emergency Medicine Emergency Medical Services; PCP Internal Medicine
DX: H11.31 Conjunctival hemorrhage, right eye (principal); H57.11 Ocular pain, right eye
CPT/HCPCS: 99283

== ENCOUNTER → 2022-09-08 07:50 | Outpatient (BNVA) | payer OTHER, SELFPAY | PROVIDERS: PCP Internal Medicine; Visit Provider Psychiatry & Neurology Neurology | DX: R55 Syncope and collapse (principal); R29.6 Repeated falls; F10.20 Alcohol dependence, uncomplicated | CPT/HCPCS: 99202 ==

== ENCOUNTER 2022-10-07 09:53 | Outpatient (REF) | payer MEDICARE, MEDICAID, OTHER, SELFPAY ==
--- NOTE | ~2022-10-07 | MR_ITS ---
MRI OF THE BRAIN WITHOUT IV CONTRAST INDICATION: Repeated falls. COMPARISON: Head CT 04/29/2022. TECHNIQUE: Multiplanar multisequence MR imaging of the brain was obtained without IV contrast. FINDINGS: There is no hydrocephalus, extra-axial surface collection, or herniation. There is global cerebral volume loss and there is mild chronic microangiopathy. The major flow voids at the skull base are preserved. There is no acute infarct on diffusion-weighted imaging. There is no intracranial hemorrhage on the gradient recalled echo acquisition. The midline structures are normal. The cerebellar tonsils are normally positioned. The cerebellum and brainstem are normal. The craniocervical junction is normal. A stable 8 mm calcified extra-axial nodule at the high left frontal convexity may reflect a small meningioma or osteoma. Osseous marrow signal intensity is homogenous. The visualized soft tissues are unremarkable. MR/MR head/brain wo con IMPRESSION: - No acute intracranial findings. - There is global cerebral volume loss and there is mild chronic microangiopathy. - A stable 8 mm calcified extra-axial nodule at the high left frontal convexity may reflect a small meningioma or osteoma.
== END 2022-10-07 09:54 | disposition home or self-care (01) ==
LOC: HO.MRI 09:53
PROVIDERS: PCP Internal Medicine; Visit Provider Psychiatry & Neurology Neurology
DX: R29.6 Repeated falls (principal)
CPT/HCPCS: 70551

== ENCOUNTER 2022-11-03 07:46 | Outpatient (REF) | payer MEDICARE, MEDICAID, SELFPAY ==
--- NOTE | 2022-11-03 07:51 | EEG_ITS ---
FINDINGS: Waking background activity consists of a well-defined moderate voltage posterior 10-11 hertz posterior alpha frequency intermixed anteriorly with low-voltage fast frequencies. Photic stimulation is without activation. Hyperventilation was omitted. No focal, lateralizing, or paroxysmal discharges were seen. IMPRESSION: This waking EEG is within normal limits. MD BRIGID Siegel/ANUSHKA / [id number]
== END 2022-11-03 07:47 | disposition home or self-care (01) ==
LOC: HO.NEURO 07:46
PROVIDERS: PCP Internal Medicine; Visit Provider Psychiatry & Neurology Neurology
DX: R29.6 Repeated falls (principal)
CPT/HCPCS: 95816

== ENCOUNTER 2022-11-23 18:11 | Inpatient (IN) | payer MEDICARE, MEDICAID, SELFPAY ==
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
[2022-11-23] MEDS: diphenhydrAMINE HCL 50 MG/ML VIAL IM (18:49)
[2022-11-23] MEDS: Haloperidol Lactate 5 MG/ML VIAL IM (18:49)
[2022-11-23] MEDS: LORazepam 2 MG/ML VIAL IM (18:50)
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
--- NOTE | 2022-11-23 18:53 | PC.NURSE ---
pt hx with allergy to Ativan, unclear reaction. made aware. will continue to monitor pt.
[2022-11-23 18:55] VITALS: BP 133/74; PULSE 94; RESP 16; TEMP 36.6; O2SAT 94; BMI 28.3
[2022-11-23 19:00] VITALS: BP 133/74; PULSE 94; RESP 16; O2SAT 94
--- NOTE | 2022-11-23 19:00 | PC.NURSE ---
during restraint pt continually yelling out that she wants to and I hate my life
[2022-11-23 19:15] VITALS: RESP 17
[2022-11-23 19:30] VITALS: RESP 17
--- NOTE | 2022-11-23 19:36 | PC.NURSE ---
Physical restraint removed at 1914, ROM assessed intact/CMS +, patient sleeping, no reaction from Ativan observed until 193, will continue to monitor for reaction to Ativan, called reported she has been off her medication for years, admitted both are alcoholic but he thinks she needs help, patient is being not changed over at this time, we will complete spinning frame changer process when she is sober, will continue to monitor.
[2022-11-23 23:09] VITALS: RESP 17
--- NOTE | 2022-11-24 | ECG_ITS ---
Test Reason : MEDICAL CLEARANCE Blood Pressure : / mmHG Vent. Rate : 080 BPM Atrial Rate : 080 BPM P-R Int : 150 ms QRS Dur : 086 ms QT Int : 356 ms P-R-T Axes : 066 022 038 degrees QTc Int : 410 ms Artifact in tracing Normal sinus rhythm Normal ECG When compared with ECG of 14-JAN-2022 22:58, No significant changes seen Referred By: Amanda To Electronically Signed By:DARIUS DAY
--- NOTE | 2022-11-24 01:52 | MHC.EDTECH ---
t/w attempted to obtain urine sample where she instead filled the cup with water. t/w also attempted to obtain labs where pt commented I'm too tired for you to touch me. RN MADE AWARE.
--- NOTE | 2022-11-24 04:06 | PC.NURSE ---
Patient woke up for bathroom use, still under ETOH influence, voided in her pant despite sitting on the toilet, pipe changer completed, cloths washed, refused labs, care consult ordered/pending evaluation, refused vital assessment, will continue to monitor.
[2022-11-24 06:13] VITALS: RESP 17
[2022-11-24 08:51] VITALS: BP 115/61; PULSE 102; RESP 14; TEMP 36.3; O2SAT 96
[2022-11-24 09:20] LABS: Amphetamine Screen Urine Not Detected (Not Detect); Barbiturates, Urine Not Detected (Not Detect); Benzodiazepines Screen Urine Not Detected (Not Detect); Cannabinoid Screen Urine Not Detected (Not Detect); Cocaine Screen Urine Not Detected (Not Detect); Fentanyl, urine Not Detected (Not Detect); Opiate Screen Urine Not Detected (Not Detect); Phencyclidine Screen Urine Not Detected (Not Detect)
[2022-11-24 09:39] LABS: MANUAL DIFF FLAG NO
[2022-11-24 09:44] LABS: Basophils Absolute Auto 0.1 X10*3/uL (0.0-0.2); Basophils Percent Auto 1.6 % (0-2); Eosinophils Absolute Auto 0.1 X10*3/uL (0.0-0.4); Eosinophils Percent Auto 1.9 % (0-4); Hematocrit 45.5 % (37.0-47.0); Hemoglobin 14.8 g/dl (12.0-16.0); Imm Gran Abs Auto 0.03 X10*3/uL (0.00-0.03); Imm Gran Pct Auto 0.5 % (0.0-0.4); Lymphocytes Percent Auto 16.7 % (20-40); Mean Corpuscular HGB Conc 32.5 g/dl (31.0-35.0); Mean Corpuscular Hemoglobin 31.6 pg (27.0-33.0); Mean Corpuscular Volume 97.2 fL (80.0-98.0); Mean Platelet Volume 10.2 fL (9.4-12.3); Monocytes Absolute Auto 0.5 X10*3/uL (0.1-1.2); Monocytes Percent Auto 8.2 % (2-11); Neutrophils Absolute Auto 4.4 x10*3/uL (2.0-8.3); Neutrophils Percent Auto 71.1 % (45-73); Platelet Count 239 X10*3/uL (160-400); Red Blood Count 4.68 X10*6/uL (4.20-5.50); Red Cell Distribution Width 14.6 % (11.0-16.0); White Blood Count 6.2 X10*3/uL (4.8-10.8)
--- NOTE | 2022-11-24 09:48 | PC.NURSE ---
I went in to assess the patient, CIWA scale = 5,chronic alcoholic, pt states doesn't remember what happened last night, moderate tremors noted, appears anxious sitting on the edge of the bed, provider notified, will continue to monitor. ordered Ativan.
[2022-11-24 09:59] LABS: Alanine Aminotransferase 20 U/L (0-31); Albumin Level 4.2 g/dL (3.5-5.0); Alkaline Phosphatase 61 U/L (39-117); Anion Gap 15 (12-20); Aspartate Amino Transferase 55 U/L (5-31); Bilirubin Direct 0.2 mg/dL (0.0-0.5); Bilirubin Total 0.7 mg/dL (0.0-1.0); Blood Urea Nitrogen 12 mg/dL (9-16); Calcium 9.9 mg/dL (8.4-10.2); Carbon Dioxide 28 mmol/L (22-29); Chloride 105 mmol/L (96-108); Creatinine Clr Calc Pharmacy 65.3; Estimated Glomerular Filt Rate > 60; Glucose Random 113 mg/dL (60-115); Potassium 4.2 mmol/L (3.3-5.1); Sodium 144 mmol/L (135-145); Total Protein 7.6 g/dL (6.5-8.0)
[2022-11-24 10:03] LABS: COVID-19 Test Negative (Negative); IDNOW Serial# BCCEAD1C
[2022-11-24 10:10] LABS: Ethanol < 10 mg/dL
[2022-11-24] MEDS: PHENobarbitaL 30 MG TABLET PO (10:13)
--- NOTE | 2022-11-24 12:39 | MHC.RECOVSUP ---
Met with pt in [facility] at the request of the Care Team to provide recovery resources. Pt had no questions or concerns at this time.
--- NOTE | 2022-11-24 15:57 | MHC.CARE ---
Pt seen by CARE team, disposition is for inpatient psychiatric admission.
--- NOTE | 2022-11-24 16:34 | PC.NURSE ---
Accepted to M3 unit. Awaiting room assignment. Will give RN to RN upon notification.
[2022-11-24 16:51] LABS: Color Urine Yellow; Glucose Urine UA Negative (Negative); Leukocyte Esterase Urine Negative (Negative); Nitrite Urine Negative (Negative); Urine Blood Negative (Negative); Urine Ketones Negative (Negative); Urine Protein Negative (Neg-Trace)
[2022-11-24 16:52] LABS: Appearance Urine Clear
[2022-11-24 16:56] LABS: Bacteria Urine None Seen (None Seen); Hyaline Casts Urine 0-2 /LPF (0-2); RBC Urine 0-2 /HPF (0-2); WBC Urine 0-5 /HPF (0-5)
--- NOTE | 2022-11-24 17:10 | PC.NURSE ---
RN to RN report given to Katie on M3 unit at [facility]. Admitting room: [facility].
[2022-11-24 18:54] VITALS: BP 140/77; PULSE 83; RESP 18; TEMP 36.3; O2SAT 98
--- NOTE | 2022-11-24 18:55 | PC.NURSE ---
Patient arrived to at 18:14 on a CV. Vitals stable upon admission. Skin assessment and business change manager completed with [facility]. Patient was Alert and oriented to person, place but stated year was 2018 . Patient started on CIWA, scored a 6. Dr. Kulwinder Raza otified and order for librium was give.
[2022-11-24] MEDS: Gabapentin 300 MG CAPSULE PO (19:02)
[2022-11-24] MEDS: chlordiazePOXIDE HCl 25 MG CAPSULE PO (19:02)
[2022-11-24] MEDS: Thiamine HCL 100 MG TABLET PO (19:02)
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
[2022-11-25] MEDS: chlordiazePOXIDE HCl 25 MG CAPSULE PO ×3 (00:02→20:53)
[2022-11-25] MEDS: Gabapentin 300 MG CAPSULE PO ×4 (00:02→20:53)
[2022-11-25 09:08] VITALS: BP 163/81; PULSE 82; RESP 18; TEMP 36.2; O2SAT 98
[2022-11-25] MEDS: Multivitamin TABLET 1 TAB PO (09:09)
[2022-11-25] MEDS: Thiamine HCL 100 MG TABLET PO (09:10)
[2022-11-25] MEDS: Folic Acid 1 MG TABLET PO (09:10)
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
[2022-11-25 20:19] VITALS: BP 133/63; PULSE 69; RESP 16; TEMP 36.2; O2SAT 98
[2022-11-26 07:00] VITALS: BMI 20.9
[2022-11-26] MEDS: Gabapentin 300 MG CAPSULE PO (08:34)
[2022-11-26] MEDS: Folic Acid 1 MG TABLET PO (08:34)
[2022-11-26] MEDS: Thiamine HCL 100 MG TABLET PO (08:35)
[2022-11-26] MEDS: chlordiazePOXIDE HCl 25 MG CAPSULE PO (08:35)
[2022-11-26] MEDS: Multivitamin TABLET 1 TAB PO (08:35)
[2022-11-26 09:27] VITALS: BP 136/71; PULSE 63; RESP 18; TEMP 36.3; O2SAT 99
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
[2022-11-26] MEDS: Naltrexone HCl 50 MG TABLET 25 MG PO (14:06)
[2022-11-26 18:00] VITALS: BP 165/74; PULSE 66; RESP 16; TEMP 36.2; O2SAT 98
[2022-11-26] MEDS: Gabapentin 100 MG CAPSULE 200 MG PO (21:08)
[2022-11-27 09:15] VITALS: BP 123/60; PULSE 71; TEMP 35.9; O2SAT 96
[2022-11-27] MEDS: Naltrexone HCl 50 MG TABLET 25 MG PO (09:20)
[2022-11-27] MEDS: Gabapentin 100 MG CAPSULE 200 MG PO ×2 (09:20→20:54)
[2022-11-27] MEDS: Thiamine HCL 100 MG TABLET PO (09:21)
[2022-11-27] MEDS: Multivitamin TABLET 1 TAB PO (09:21)
[2022-11-27] MEDS: Folic Acid 1 MG TABLET PO (09:21)
--- NOTE | 2022-11-27 13:55 | MHC.RECOVRN ---
This freelance writer met with patient after receiving addiction consult. Patient reports long hx of alcohol use, with intermittent periods of recovery, longest recovery time 13 years. Pt reports during period of recovery time, utilyzed [employer]. Pt states found [employer] a helpful tool, pt states is currently connected with [employer] and receives messages about goups/meetings on phone. Pt states 15 years ago, picked up drinking a glass of wine, after many years of abstinence. Pt states since then, has had shorter periods of recovery, coupled with recurrences. Pt states , whom lives with, uses alcohol-in the past had been in recovery together, recurrences coincided together. Pt reports husbands health has been effected by alcohol use. Pt states has acknowledged desire to decrease use/abstain. Pt reports abstinence as goal, with a desire to be able to drink socially on occasion. Pt states I know the best choice is abstinence . Pt states in the past has tried medication, pt reports no history of inpatient alcohol treatment. This freelance writer and patient reviewed recovery supports, [employer] and making appt at the [facility]. Pt given information to review. Pt agreeable to review, pt encouraged to reach out if interested in appt at [facility] as a part of discharge plan, or [employer] referral.
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
[2022-11-27 19:50] VITALS: BP 134/72; PULSE 67; RESP 18; TEMP 36.3; O2SAT 99
[2022-11-28 07:41] LABS: Ammonia 22 umol/L (13-55)
[2022-11-28 08:10] LABS: TSH reflex Free T4 2.41 uIU/mL (0.32-4.0)
[2022-11-28 08:25] LABS: Folate 15.6 ng/mL (> or = 4.0); Vitamin B12 850 pg/mL (200-900)
[2022-11-28 08:55] VITALS: BP 118/63; PULSE 65; RESP 16; TEMP 36.7; O2SAT 98
[2022-11-28] MEDS: Naltrexone HCl 50 MG TABLET 25 MG PO (09:07)
[2022-11-28] MEDS: Multivitamin TABLET 1 TAB PO (09:07)
[2022-11-28] MEDS: Gabapentin 100 MG CAPSULE PO ×2 (09:07→21:21)
[2022-11-28] MEDS: Folic Acid 1 MG TABLET PO (09:07)
[2022-11-28] MEDS: Thiamine HCL 100 MG TABLET PO (09:07)
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
[2022-11-28 20:15] VITALS: BP 111/78; PULSE 80; RESP 18; TEMP 36.3; O2SAT 97
[2022-11-29 08:30] VITALS: BP 149/68; PULSE 64; RESP 16; TEMP 36.3; O2SAT 99
[2022-11-29] MEDS: Folic Acid 1 MG TABLET PO (08:33)
[2022-11-29] MEDS: Multivitamin TABLET 1 TAB PO (08:33)
[2022-11-29] MEDS: Thiamine HCL 100 MG TABLET PO (08:34)
[2022-11-29] MEDS: Gabapentin 100 MG CAPSULE PO ×2 (08:34→21:17)
[2022-11-29] MEDS: Naltrexone HCl 50 MG TABLET 25 MG PO (08:34)
[2022-11-29] MEDS: Milk of Magnesia 30 ML ORAL.SUSP PO (08:36)
--- NOTE | 2022-11-29 13:11 | P.EN_ITS ---
Event Note Date of Service: 11/29/22 Event Note: Addiction consult placed for patient Please see digital asset manager note dated 11/27 and 11/29 Time Spent With Patient Time: Total time managing care of this patient today ____ minutes.
--- NOTE | 2022-11-29 13:56 | MHC.RECOVRN ---
Met with pt in group room to follow up after pt had discussion with Mary PETER. Pt awake, alert, easily engages in conversation, reports brain is foggy from the medications you people are giving me. Pt reports she is typically more clearheaded. Pt was unable to go over resources that were left, therefore does not have questions. Discussed TREMAINE with pt, pt reports PCP has prescribed it in the past and it was helpful. Pt is currently taking naltrexone 25 mg daily on M3. Pt plans to continue this medication and follow up with PCP. Pt reports having completed [facility] during [place] and also found that to be helpful, as well as therapy through [facility]. Pt interested in these after discharge. As far as recovery, pt denies questions or concerns. Pt encouraged to ask for Recovery Support Team if need or desire arises.
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
[2022-11-29 18:00] VITALS: BP 116/55; PULSE 79; RESP 18; TEMP 36.8; O2SAT 94
[2022-11-30 08:07] VITALS: BP 103/66; PULSE 68; RESP 18; TEMP 36.1; O2SAT 96
[2022-11-30] MEDS: Naltrexone HCl 50 MG TABLET 25 MG PO (08:08)
[2022-11-30] MEDS: Multivitamin TABLET 1 TAB PO (08:08)
[2022-11-30] MEDS: Thiamine HCL 100 MG TABLET PO (08:08)
[2022-11-30] MEDS: Folic Acid 1 MG TABLET PO (08:09)
[2022-11-30] MEDS: Gabapentin 100 MG CAPSULE PO (08:09)
--- NOTE | 2022-11-30 11:02 | PC.NURSE ---
Pt was administered a MOCA on 11/30/2022. Pt scored a 20 out of 30 indicating mild cognitive impairment. Pt provider was notified.
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
--- NOTE | 2022-11-30 13:55 | PC.NURSE ---
Patient easily engaged. Reports mood is stable. Denies feeling anxious, denies depression, denies SI/HI plan or intent at this time. Denies perceptual disturbances, no overt psychosis or expressed delusions. Reports not thinking as clearly as previously however denies confusion, or racing thought. Reports she plans to return to home with . Discharge paperwork reviewed with patient, reports understanding. Medications reviewed with patient, reports understanding. Follow up appointment s reviewed, reports understanding. All belongings taken with patient. Crisis numbers provided.
== END 2022-11-30 13:00 | disposition home or self-care (01) | DRG 881 ==
LOC: HO.ED 19:08 → HO.PADLT16 11-24 17:52
PROVIDERS: Admitting Provider Psychiatry & Neurology Psychiatry; Emergency Provider Emergency Medicine; Visit Provider Psychiatry & Neurology Psychiatry
DX: F32.9 Major depressive disorder, single episode, unspecified (principal); F10.24 Alcohol dependence with alcohol-induced mood disorder; G31.84 Mild cognitive impairment of uncertain or unknown etiology; F41.0 Panic disorder [episodic paroxysmal anxiety]; Z20.822 Contact with and (suspected) exposure to COVID-19; Z78.1 Physical restraint status; Z91.51 Personal history of suicidal behavior; Z79.899 Other long term (current) drug therapy
CPT/HCPCS: 36415; 80048; 80076; 80307; 81001; 82140; 82607; 82746; 83735; 84443; 85025; 87635; 93005; 99285; J1200; J2060

== ENCOUNTER → 2022-11-24 17:45 | Outpatient (BNV) | payer MEDICARE, MEDICAID, SELFPAY | PROVIDERS: Admitting Provider Psychiatry & Neurology Psychiatry; Emergency Provider Emergency Medicine; Visit Provider Psychiatry & Neurology Psychiatry | DX: F33.2 Major depressive disorder, recurrent severe without psychotic features (principal); F10.10 Alcohol abuse, uncomplicated | CPT/HCPCS: 99232; 99239 ==

== ENCOUNTER 2023-01-27 15:26 | Outpatient (AMB) | payer MEDICARE, MEDICAID, SELFPAY ==
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
[2023-01-27 15:30] VITALS: BP 114/70; PULSE 77; RESP 14; O2SAT 97; BMI 20.3
== END 2023-01-27 15:53 | disposition home or self-care (01) ==
PROVIDERS: Visit Provider Psychiatry & Neurology Neurology
DX: R55 Syncope and collapse (principal); R29.6 Repeated falls; F10.20 Alcohol dependence, uncomplicated
CPT/HCPCS: 99214

== ENCOUNTER → 2023-01-27 15:26 | Outpatient (BNVA) | payer MEDICARE, MEDICAID, SELFPAY | PROVIDERS: Visit Provider Psychiatry & Neurology Neurology | DX: R55 Syncope and collapse (principal); R29.6 Repeated falls; F10.20 Alcohol dependence, uncomplicated | CPT/HCPCS: 99212 ==

== ENCOUNTER 2023-03-08 08:54 | Outpatient (AMB) | payer MEDICARE, MEDICAID, SELFPAY ==
--- NOTE | 2023-03-08 08:57 | A.OFFVIS_ITS ---
Intake Vital Signs 03/08/23 08:58 Height 5 ft 2 in Weight 116 lb 6 oz BMI 21.3 BP 104/60 Blood Pressure Location Rt brachial Position Sitting Pulse 70 Pulse Source Pulse Oximeter Pulse Oximetry (%) 97 Oxygen Delivery Method Room Air Intake Visit Reasons: 6m follow up Abnormalities/mobility Intake Note: Pt presents to the office today for a 6 month follow up abnormalities/mobility. Pt states she has been doing well. Pt states her blood pressure has been fluctuating and has been getting dizzy. Allergies clonazepam Allergy (Unknown, Verified 03/08/23 09:00) amnesia, suicidal thoughts lorazepam Allergy (Unknown, Verified 03/08/23 09:00) unknown sertraline [Zoloft] Adverse Reaction (Unknown, Verified 03/08/23 09:00) unknown From WELLBUTRIN Allergy (Unknown, Uncoded 03/08/23 09:00) PATIENT BECOMES INSANE From ZOLOFT Allergy (Unknown, Uncoded 03/08/23 09:00) PT BECOMES INSANE Wellbutrin Allergy (Unknown, Uncoded 03/08/23 09:00) unknown ambien Adverse Reaction (Unknown, Uncoded 03/08/23 09:00) night mare, suicidal thoughts HPI HPI Comments History of Present Illness Details 66y/o female with h/o alcohol abuse come s for follow up. she stopped alcohol in November 2022 . No episodes of syncope or dizziness since then .she has mild lightheadedness. In November 2022 she was [place] [facility] [place]. Police Department explained , bystanders found that the patient was trying to get into strange is cars, acting erratic, screaming.? Patient was with her who was intoxicated as well.? Patient became combative with PD and EMS.? Patient had to be restrained and was brought to the emergency room.? EEG was normal MRI = showed incidental 8 mm calcified extra axial nodule left frontal convexity mass likely meningioma , mild chronic angiopathy, global volume loss Her father had dementia PFSH Medical History Cognitive disorder Major depressive disorder Subdural bleeding Cataract Alcoholism Surgical History Hx of section Family History Brother Cancer Social History Household Members: Spouse Household Members Other:: SPOUSE OF 20 YEARS Housing: Apartment Housing Other:: IN [place] Do you presently have visiting nurse or other home services: No Alcohol intake: former Patient Tobacco Use Status: Never used Tobacco e-Cigarette/Vaping Use: Never Used Second Hand Smoke Exposure: No Advance Directives Date on File: 08/23/21 service: No Current occupational status: employed 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 Sexual orientation: Straight/Heterosexual Cognitive needs: No Hearing needs: No Vision needs: No Physical Exam Vital Signs: Last Vital Signs Pulse 70 03/08/23 08:58 BP 104/60 03/08/23 08:58 Pulse Ox 97 03/08/23 08:58 Oxygen Delivery Method Room Air 03/08/23 08:58 BMI result Body Mass Index 21.3 Const General: cooperative and comfortable Nutritional Appearance: average body habitus Orientation/consciousness: patient oriented x3 Limitations: no limitations HEENT Head: Yes normal to inspection and Yes normocephalic Eyes Pupils: Equal, round and reactive pupils present Neck Neck: Yes no meningeal signs Neuro General: patient oriented x3, gait normal, tone normal, moves all extremities, no meningeal signs and no focal motor deficits Cranial nerves: Yes Equal, round and reactive pupils present, Yes Bilaterally intact EOM present, Yes Nystagmus not present, Yes Normal facial strength present, Yes Midline tongue present and Yes Symmetric palate elevation present Cognition (Neuro): normal cognition Gait exam (Neuro): Normal gait present Motor exam (neuro): 5/5 motor strength present throughout and Normal motor muscle tone present throughout Coordination: [id number] test normal Psych Appearance: grossly normal Assessment & Plan Assessment & Plan (1) Syncope: Comment: likley related to alcohol use and likley vasovagal Code(s): R55 - Syncope and collapse (2) Recurrent falls: Comment: related to alcohol- none since last visit Code(s): R29.6 - Repeated falls (3) Alcoholism: Comment: Patient is doing good since November 2022 Code(s): F10.20 - Alcohol dependence, uncomplicated Plan Reviewed EEG and MRI report F/u Psychiatry Increase fluids. Coding Level of Care Code Est Pt Level 4 (60448) Diagnoses Syncope R55 Recurrent falls R29.6 Alcoholism F10.20
[2023-03-08 08:58] VITALS: BP 104/60; PULSE 70; O2SAT 97; BMI 21.3
== END 2023-03-08 09:23 | disposition home or self-care (01) ==
PROVIDERS: Visit Provider Psychiatry & Neurology Neurology
DX: R55 Syncope and collapse (principal); R29.6 Repeated falls; F10.20 Alcohol dependence, uncomplicated
CPT/HCPCS: 99214

== ENCOUNTER → 2023-03-08 08:54 | Outpatient (BNVA) | payer MEDICARE, MEDICAID, SELFPAY | PROVIDERS: Visit Provider Psychiatry & Neurology Neurology | DX: R55 Syncope and collapse (principal); R29.6 Repeated falls; F10.20 Alcohol dependence, uncomplicated | CPT/HCPCS: 99212 ==

== ENCOUNTER 2023-09-17 08:46 | Outpatient (AMB) | payer MEDICARE, MEDICAID, SELFPAY ==
--- NOTE | 2023-09-17 08:52 | A.OFFVIS_ITS ---
Intake Vital Signs 09/17/23 08:55 Height 5 ft 2 in Weight 126 lb 4 oz BMI 23.1 BP 144/80 H Blood Pressure Location Rt brachial Position Sitting Respiration 16 Pulse 71 Pulse Source Pulse Oximeter Oxygen Delivery Method Room Air Intake Visit Reasons: 6 mnts f/u appt for mobility-CONF Intake Note: Pt presents to the office for a 6 month follow up for issues with mobility.Pt reports she feels better. [facility] Assistant Director Required: No Allergies clonazepam Allergy (Unknown, Verified 09/17/23 08:55) amnesia, suicidal thoughts lorazepam Allergy (Unknown, Verified 09/17/23 08:55) unknown sertraline [Zoloft] Adverse Reaction (Unknown, Verified 09/17/23 08:55) unknown From WELLBUTRIN Allergy (Unknown, Uncoded 09/17/23 08:54) PATIENT BECOMES INSANE From ZOLOFT Allergy (Unknown, Uncoded 09/17/23 08:54) PT BECOMES INSANE Wellbutrin Allergy (Unknown, Uncoded 09/17/23 08:54) unknown ambien Adverse Reaction (Unknown, Uncoded 09/17/23 08:54) night mare, suicidal thoughts HPI HPI Comments History of Present Illness Details 66y/o female with h/o alcohol abuse come s for follow up. she stopped alcohol in November 2022 . Now her feels she has some short term memory issues but patient denies No episodes of syncope . she still dillon some postural lightheadedness. 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 she stopped working last fall and has been feeling good sicne then In November 2022 she was in [facility] [place] brought by police. Police Department explained , bystanders found that the patient was trying to get into strange is cars, acting erratic, screaming.? Patient was with her who was intoxicated as well.? Patient became combative with PD and EMS.? Patient had to be restrained and was brought to the emergency room.? EEG was normal MRI = showed incidental 8 mm calcified extra axial nodule left frontal convexity mass likely meningioma , mild chronic angiopathy, global volume loss Her father had dementia PFSH Medical History (Updated 09/17/23 @ 09:16 by Analisa Donnelly MD) Meningioma Cognitive disorder Major depressive disorder Subdural bleeding Cataract Alcoholism Surgical History Hx of section Family History Brother Cancer Social History Household Members: Spouse Household Members Other:: SPOUSE OF 20 YEARS Housing: Apartment Housing Other:: IN [place] Do you presently have visiting nurse or other home services: No Alcohol intake: former Patient Tobacco Use Status: Never used Tobacco e-Cigarette/Vaping Use: Never Used Second Hand Smoke Exposure: No Advance Directives Date on File: 08/23/21 service: No Current occupational status: employed 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 Sexual orientation: Straight/Heterosexual Cognitive needs: No Hearing needs: No Vision needs: No Physical Exam Vital Signs: Last Vital Signs Pulse 71 09/17/23 08:55 Resp 16 09/17/23 08:55 BP 144/80 H 09/17/23 08:55 Oxygen Delivery Method Room Air 09/17/23 08:55 BMI result Body Mass Index 23.1 Const General: cooperative and comfortable Nutritional Appearance: average body habitus Orientation/consciousness: patient oriented x3 Limitations: no limitations HEENT Head: Yes normal to inspection and Yes normocephalic Eyes Pupils: Equal, round and reactive pupils present Neck Neck: Yes no meningeal signs Neuro Other: slow tandem Slow FN General: patient oriented x3, gait normal, tone normal, moves all extremities, no meningeal signs and no focal motor deficits Cranial nerves: Yes Equal, round and reactive pupils present, Yes Bilaterally intact EOM present, Yes Nystagmus not present, Yes Normal facial strength present, Yes Midline tongue present and Yes Symmetric palate elevation present Cognition (Neuro): normal cognition Gait exam (Neuro): Normal gait present Motor exam (neuro): 5/5 motor strength present throughout and Normal motor muscle tone present throughout Coordination: [id number] test normal Psych Appearance: grossly normal Assessment & Plan Assessment & Plan (1) Syncope: Comment: likley related to alcohol use and likley vasovagal Code(s): R55 - Syncope and collapse (2) Recurrent falls: Comment: related to alcohol- none since last visit Code(s): R29.6 - Repeated falls (3) Alcoholism: Comment: Patient is doing good since November 2022 Code(s): F10.20 - Alcohol dependence, uncomplicated (4) Meningioma: Code(s): D32.9 - Benign neoplasm of meninges, unspecified Plan will consider cognitive evaluation next visit MRI - to follow up meningioma - next visit F/u Psychiatry Increase fluids. Coding Level of Care Code Est Pt Level 4 (78728) Diagnoses Syncope R55 Recurrent falls R29.6 Alcoholism F10.20 Meningioma D32.9
[2023-09-17 08:55] VITALS: BP 144/80; PULSE 71; RESP 16; BMI 23.1
== END 2023-09-17 09:23 | disposition home or self-care (01) ==
PROVIDERS: Visit Provider Psychiatry & Neurology Neurology
DX: R55 Syncope and collapse (principal); R29.6 Repeated falls; F10.20 Alcohol dependence, uncomplicated; D32.9 Benign neoplasm of meninges, unspecified
CPT/HCPCS: 99214

== ENCOUNTER → 2023-09-17 08:46 | Outpatient (BNVA) | payer MEDICARE, SELFPAY | PROVIDERS: Visit Provider Psychiatry & Neurology Neurology | DX: R55 Syncope and collapse (principal); D32.9 Benign neoplasm of meninges, unspecified; F10.20 Alcohol dependence, uncomplicated; R29.6 Repeated falls | CPT/HCPCS: 99212 ==

== ENCOUNTER 2023-11-09 00:48 | Emergency (ER) | payer MEDICARE, SELFPAY ==
--- NOTE | ~2023-11-09 | XR_ITS ---
EXAMINATION: XR FOOT, LEFT CLINICAL INFORMATION: Injury COMPARISON: 11/18/2017 TECHNIQUE: AP, lateral, and oblique views of the left foot. FINDINGS: Osseous alignment is anatomic. There are cortical irregularities of the bases of the second, third, and fourth metatarsals concerning for acute fractures if there is pain in this region. There is a healed fracture of the fifth metatarsal. Cortical irregularity at the head of the fifth proximal phalanx is also present, more age indeterminate though new from prior. Mild soft tissue swelling along the dorsum of the foot as well as near the fifth MTP joint. Degenerative changes noted in the proximal to midfoot. XR/XR foot LT 2V IMPRESSION: 1. Cortical irregularities at the bases of the second, third, and fourth metatarsals, raising concern for acute fractures if there is pain in this region. 2. Cortical irregularity at the head of the fifth proximal phalanx, more age indeterminate though new from prior. Clinical correlation recommended.
[2023-11-09 00:55] VITALS: BP 114/78; BP 152/76; PULSE 74; PULSE 88; RESP 20; TEMP 36.4; O2SAT 98; O2SAT 99; BMI 24.4
--- OUTSIDE RECORDS SUMMARY | 2023-11-12 09:38 | XMS_ITS | Continuity of Care Document ---
Author Organization [facility] Fabián megan Address [address] [place] [address] [address] [place] [address]- Care Team Providers Care Juice Standardizer Name Role Phone Not on Staff, PCP Primary Care Physician Unavail able [place] [facility] [place] 01/15/22 [facility] [address] [place] [address]- Attending Physician: Olman PUENTES, Bill Pickens Allergies, Adverse Reactions, Alerts No Known Allergies Medications famotidine 20 mg oral tablet 20 mg, 1, tablet, By Mouth, Daily, # 30 tablet, Refills 0, Tot. Refills 0, Maintenance, 08/27/20 14:59:00 EDT, Route to Pharmacy Electronically, [facility], Partial fill upon patient request if the prescription is for a schedule II opioi... Start Date: 08/27/20 Status: Ordered Tylenol 8 Hour 650 mg oral tablet, extended release 2 tablet = 1,300 mg, By Mouth, Every 8 hours, PRN as needed for pain, # 24 tablet, 0 Refills, Maintenance, 07/21/21 15:47:00 EST, ER Tablet, Partial fill upon patient request if the prescription is for a schedule II opioid drug. Start Date: 07/21/21 Status: Ordered Problem List Condition Effective Dates Status Health Status Inform ant Underweight(Confirmed) Active Vital Signs Most recent to oldest [Reference Range]: 1 Height 163 cm (01/08/22 1:25 PM) Temperature [96.8-100.4 DegF] 97.0 DegF (01/08/22 1:25 PM) Temperature Route Temporal (01/08/22 1:25 PM)
--- OUTSIDE RECORDS SUMMARY | 2023-11-12 09:38 | XMS_ITS | Continuity of Care Document ---
Author Organization [facility] Fabián megan Address [address] [place] [address] [address] [place] [address]- Care Team Providers Care Ux Consultant Name Role Phone Not on Staff, PCP Primary Care Physician Unavail able Encounter [facility] [place](s): 01/08/22 - 02/07/22 [facility] [address] [place] [address]- Attending Physician: Carla Dunbar Admitting Physician: AdmCarla aly Referring Physician: Admtr, Carla Allergies, Adverse Reactions, Alerts No Known Allergies Medications famotidine 20 mg oral tablet 20 mg, 1, tablet, By Mouth, Daily, # 30 tablet, Refills 0, Tot. Refills 0, Maintenance, 08/27/20 14:59:00 EDT, Route to Pharmacy Electronically, [facility], Partial fill upon patient [...] Status Health Status Inform ant Underweight(Confirmed) Active Care Team Personnel Name: Not on Staff, PCP
--- OUTSIDE RECORDS SUMMARY | 2023-11-12 09:38 | XMS_ITS | Continuity of Care Document ---
Author Organization [facility] Address [address] [place] [address]- Care Team Providers Care Analysis Engineer Name Role Phone Not on Staff, PCP Primary Care Physician Unavail able Encounter [facility] [place] Date(s): 08/26/20 - 08/27/[address] [address]- Encounter Diagnosis Abrasion of head(Final) - 08/26/20 Discharge Disposition: A-D/C Home Attending Physician: Indio Ruiz MD Admitting Physician: Indio Ruiz MD Referring Physician: Not on Staff, Referring MD Allergies, Adverse Reactions, Alerts Substance Reaction Severity Status NKA Active Medications acetaminophen 325 mg oral tablet 650 mg, 2, tablet, By Mouth, Every 8 hours, PRN, # 50 tablet, Refills 0, Tot. Refills 0, Acute 09/25/20 14:15:00 EDT, Pain , Mild, 08/27/20 14:13:00 EDT, Route to Pharmacy Electronically, [facility], Partial fill upon patient request if... Start Date: 08/27/20 Stop Date: 09/25/20 Status: Ordered famotidine 20 mg oral tablet 20 mg, 1, tablet, By Mouth, Daily, # 30 tablet, Refills 0, Tot. Refills 0, Maintenance, 08/27/20 14:59:00 EDT, Route to Pharmacy Electronically, [facility], Partial fill upon patient request if the prescription is for a schedule II opioi... Start Date: 08/27/20 Status: Ordered Results Radiology Reports * Exam Date Time Procedure Performing Provider Status 08/25/20 11:02 PM Pelvis 1 or 2 Views Keyona Ambrose ; Auth (Verified) Notes: (Pelvis 1 or 2 Views) Reason For Exam: Trauma RESULT: Pelvis 1 or 2 Views Pelvis 1 or 2 Views Reason: Trauma; Clinical Question(s): Fracture COMPARISON: None. FINDINGS: AP view of pelvis. No pelvic or pubic bone deformity or lucency to indicate fracture. No hip or proximal femoral fracture. The sacrum is poorly visualized due to overlapping bowel gas and stool along with osteopenia. SI joints are normally aligned. There is mild joint space narrowing at both hips. No pelvic soft tissue abnormality. IMPRESSION: No pelvic or hip fracture. Sacrum is not well visualized due to bowel gas, stool and osteopenia. Mild hip osteoarthritis. WSN: [id number] Ordering Physician: Guerrero Randhawa Dictated By: Arnulfo Rothman MD Dictated Date/Time: 08/25/20 11:18 p Reviewed By: Arnulfo Rothman MD Signed By: Arnulfo Rothman MD Signed Date/Time: 08/25/20 11:18 pm Transcribed By: MERON Transcribed Date/Time: 08/25/20 11:17 pm Vital Signs Most recent to oldest [Reference Range]: 1 2 3 Height 163 cm (08/27/20 3:00 PM) 163 cm (08/27/20 11:19 AM) 163 cm (08/27/20 8:13 AM) Weight 55.7 kg (08/27/20 6:41 AM) 57.4 kg (08/26/20 2:34 AM) 57.4 kg (08/26/20 2:23 AM) Oxygen Saturation [94-100 %] 99 % (08/27/20 3:00 PM) 100 % (08/27/20 11:19 AM) 100 % (08/27/20 8:13 AM) Pulse Rate [55-90 bpm] 62 bpm (08/27/20 3:00 PM) 70 bpm (08/27/20 11:19 AM) 74 bpm (08/27/20 8:13 AM) Body Mass Index [18.5-24.99] 21.6 (08/26/20 2:04 AM) Blood Pressure [90-138/55-84 mm Hg] 145/70mm Hg *H* (08/27/20 3:00 PM) 145/76mm Hg *H* (08/27/20 11:19 AM) 146/71mm Hg *H* (08/27/20 8:13 AM) Respiratory Rate [16-30 br/min] 18 br/min (08/27/20 3:00 PM) 18 br/min (08/27/20 11:19 AM) 18 br/min (08/27/20 8:13 AM) Temperature [96.8-100.4 DegF] 97.8 DegF (08/27/20 3:00 PM) 98.4 DegF (08/27/20 11:19 AM) 97.8 DegF (08/27/20 8:13 AM) Liters per Minute 0 L/min (08/27/20 3:00 PM) 0 L/min (08/27/20 11:19 AM) 0 L/min (08/27/20 8:13 AM) Mode of Delivery (Oxygen) Room air (08/27/20 3:00 PM) Room air (08/27/20 11:19 AM) Room air (08/27/20 8:13 AM) Blood pressure sites Arm, left (08/27/20 3:00 PM) Arm, left (08/27/20 11:19 AM) Arm, left (08/27/20 8:13 AM) Temperature Route Oral (08/27/20 3:00 PM) Temporal (08/27/20 11:19 AM) Temporal (08/27/20 8:13 AM) Dry Weight 57.4 kg (08/26/20 2:04 AM) Weight Obtained Via Standing scale (08/27/20 6:41 AM) Bed scale (08/26/20 2:34 AM) Bed scale (08/26/20 2:23 AM)
--- OUTSIDE RECORDS SUMMARY | 2023-11-12 09:38 | XMS_ITS | Continuity of Care Document ---
Author Organization [facility] Fabián megan Address [address] [place] [address] [address] [place] [address]- Care Team Providers Care Car Varnisher Name Role Phone Not on Staff, PCP Primary Care Physician Unavail able [place] [facility] [place] 07/16/21 - 08/15/21 [facility] [address] [place] [address]- Allergies, Adverse Reactions, Alerts No Known Allergies Medications famotidine 20 mg oral tablet 20 mg, 1, tablet, By Mouth, Daily, # 30 tablet, Refills 0, Tot. Refills 0, Maintenance, 08/27/20 14:59:00 EDT, Route to Pharmacy Electronically, [facility], Partial fill upon patient [...]
--- OUTSIDE RECORDS SUMMARY | 2023-11-12 09:38 | XMS_ITS | Continuity of Care Document ---
Author Organization [facility] Fabián megan Address [address] [place] [address] [address] [place] [address]- Care Team Providers Care Splicer Helper Name Role Phone Not on Staff, PCP Primary Care Physician Unavail able [place] [facility] [place] 07/21/21 - 07/28/21 [facility] [address] [place] [address]- Attending Physician: Olman PUENTES, Bill Pickens Referring Physician: Not on Staff, Referring MD Allergies, Adverse Reactions, Alerts No Known Allergies Medications famotidine 20 mg oral tablet 20 mg, 1, tablet, By Mouth, Daily, # 30 tablet, Refills 0, Tot. Refills 0, Maintenance, 08/27/20 14:59:00 EDT, Route to Pharmacy Electronically, [facility], Partial fill upon patient [...] oldest [Reference Range]: 1 Height 163 cm (07/21/21 3:45 PM) Weight 47.72 kg (07/21/21 3:45 PM) Body Mass Index [18.5-24.99] 17.96 *L* (07/21/21 3:45 PM) Temperature [96.8-100.4 DegF] 98.0 DegF (07/21/21 3:45 PM) Temperature Route Temporal (07/21/21 3:45 PM) Weight Obtained Via Standing scale (07/21/21 3:45 PM)
== END 2023-11-09 07:16 | disposition left against medical advice (07) ==
PROVIDERS: Emergency Provider Emergency Medicine
DX: M79.672 Pain in left foot (principal)
CPT/HCPCS: 73620; 99281; 99283

== ENCOUNTER 2024-02-13 14:27 | Emergency (ER) | payer MEDICARE, SELFPAY ==
--- NOTE | ~2024-02-13 | XR_ITS ---
EXAMINATION: XR SHOULDER, LEFT CLINICAL INFORMATION: Pain, injury COMPARISON: Shoulder x-ray on 05/05/2021 TECHNIQUE: AP external rotation, Grashey, scapular Y, and axillary views of the left shoulder. FINDINGS: The bones and soft tissues are normal. No fracture. Glenohumeral and acromioclavicular alignment is anatomic with normal joint space. No abnormal soft tissue calcifications. XR/XR shoulder LT min 2V IMPRESSION: Normal left shoulder. Electronically signed by: Isa Baltazar MD 02/13/2024 03:37 PM EDT
[2024-02-13 14:31] VITALS: BP 137/87; PULSE 83; RESP 16; TEMP 36.6; O2SAT 95; BMI 22.1
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
[2024-02-13] MEDS: Acetaminophen 325 MG TABLET 975 MG PO (15:32)
--- NOTE | 2024-02-13 15:57 | PC.NURSE ---
community resources booklet provided to pt upon discharge
[2024-02-13 16:03] VITALS: BP 137/87; PULSE 83; RESP 16; TEMP 36.6; O2SAT 95
== END 2024-02-13 16:10 | disposition home or self-care (01) ==
LOC: HO.ED 16:07
PROVIDERS: Emergency Provider Emergency Medicine Emergency Medical Services
DX: S49.92XA Unspecified injury of left shoulder and upper arm, initial encounter (principal); M25.512 Pain in left shoulder; Y04.8XXA Assault by other bodily force, initial encounter; Y93.89 Activity, other specified; Y92.89 Other specified places as the place of occurrence of the external cause; Y99.8 Other external cause status
CPT/HCPCS: 73030; 99283

== ENCOUNTER 2024-03-23 07:35 | Outpatient (AMB) | payer MEDICARE, SELFPAY ==
[2024-03-23 07:43] VITALS: BP 142/90; BMI 21.6
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
== END 2024-03-23 08:22 | disposition home or self-care (01) ==
PROVIDERS: Visit Provider Psychiatry & Neurology Neurology
DX: R41.89 Other symptoms and signs involving cognitive functions and awareness (principal); R29.6 Repeated falls; F10.20 Alcohol dependence, uncomplicated; D32.9 Benign neoplasm of meninges, unspecified
CPT/HCPCS: 99214; G2211

== ENCOUNTER 2024-03-23 08:34 | Outpatient (REF) | payer MEDICARE, SELFPAY ==
[2024-03-23 13:05] LABS: MANUAL DIFF FLAG NO
[2024-03-23 13:10] LABS: Basophils Absolute Auto 0.1 X10*3/uL (0.0-0.2); Basophils Percent Auto 1.1 % (0-2); Eosinophils Percent Auto 0.5 % (0-4); Hematocrit 43.5 % (37.0-47.0); Hemoglobin 14.6 g/dl (12.0-16.0); Imm Gran Abs Auto 0.01 X10*3/uL (0.00-0.03); Imm Gran Pct Auto 0.2 % (0.0-0.4); Lymphocytes Absolute Auto 1.3 X10*3/uL (1.2-4.9); Lymphocytes Percent Auto 19.4 % (20-40); Mean Corpuscular HGB Conc 33.6 g/dl (31.0-35.0); Mean Corpuscular Hemoglobin 31.9 pg (27.0-33.0); Mean Corpuscular Volume 95.2 fL (80.0-98.0); Monocytes Absolute Auto 0.6 X10*3/uL (0.1-1.2); Monocytes Percent Auto 9.9 % (2-11); Neutrophils Absolute Auto 4.4 x10*3/uL (2.0-8.3); Neutrophils Percent Auto 68.9 % (45-73); Platelet Count 309 X10*3/uL (160-400); Red Blood Count 4.57 X10*6/uL (4.20-5.50); Red Cell Distribution Width 14.1 % (11.0-16.0); White Blood Count 6.4 X10*3/uL (4.8-10.8)
[2024-03-23 13:26] LABS: Alanine Aminotransferase 16 U/L (0-31); Albumin Level 4.8 g/dL (3.5-5.0); Alkaline Phosphatase 60 U/L (39-117); Anion Gap 12 (12-20); Aspartate Amino Transferase 32 U/L (5-31); Bilirubin Total 0.6 mg/dL (0.0-1.0); Blood Urea Nitrogen 13 mg/dL (9-16); Calcium 9.9 mg/dL (8.4-10.2); Carbon Dioxide 29 mmol/L (22-29); Chloride 102 mmol/L (96-108); Estimated Glomerular Filt Rate > 60; Glucose Random 85 mg/dL (60-115); Potassium 4.2 mmol/L (3.3-5.1); Sodium 139 mmol/L (135-145)
[2024-03-23 13:42] LABS: TSH reflex Free T4 1.33 uIU/mL (0.32-4.0)
[2024-03-23 13:49] LABS: Erythrocyte Sedimentation Rate 2 MM/HR (0-20)
[2024-03-23 13:55] LABS: Folate 12.2 ng/mL (> or = 4.0); Vitamin B12 401 pg/mL (200-900)
[2024-03-27 13:58] LABS: Anti Nuclear Antibody Screen NEGATIVE (NEGATIVE)
== END 2024-03-23 08:35 | disposition home or self-care (01) ==
LOC: HO.HKASLDS 08:34
PROVIDERS: Visit Provider Psychiatry & Neurology Neurology
DX: F09 Unspecified mental disorder due to known physiological condition (principal); R29.6 Repeated falls; F10.20 Alcohol dependence, uncomplicated; D32.9 Benign neoplasm of meninges, unspecified
CPT/HCPCS: 36415; 80053; 82607; 82746; 84443; 85025; 85652; 86038; 99212

== ENCOUNTER 2024-05-01 07:14 | Outpatient (REF) | payer MEDICARE, SELFPAY | END 2024-05-01 07:15 | disposition home or self-care (01) | LOC: HO.MRI 07:14 | PROVIDERS: Visit Provider Psychiatry & Neurology Neurology | DX: F09 Unspecified mental disorder due to known physiological condition (principal) | CPT/HCPCS: 70551; 76377 ==

== ENCOUNTER 2024-10-16 07:33 | Outpatient (AMB) | payer MEDICARE, SELFPAY ==
[2024-10-16 07:38] VITALS: BP 110/78; BMI 23.4
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
== END 2024-10-16 08:12 | disposition home or self-care (01) ==
LOC: HO.HSMS 07:34
PROVIDERS: Visit Provider Psychiatry & Neurology Neurology
DX: R41.89 Other symptoms and signs involving cognitive functions and awareness (principal); R29.6 Repeated falls; F10.20 Alcohol dependence, uncomplicated; D32.9 Benign neoplasm of meninges, unspecified
CPT/HCPCS: 99214; G2211

== ENCOUNTER → 2024-10-16 07:33 | Outpatient (BNVA) | payer MEDICARE, SELFPAY | PROVIDERS: Visit Provider Psychiatry & Neurology Neurology | DX: R29.6 Repeated falls (principal); D32.9 Benign neoplasm of meninges, unspecified; F09 Unspecified mental disorder due to known physiological condition; F10.20 Alcohol dependence, uncomplicated | CPT/HCPCS: 99212 ==

== ENCOUNTER 2025-02-22 12:54 | Outpatient (AMB) | payer MEDICARE, SELFPAY ==
--- NOTE | 2025-02-22 12:56 | A.OFFVIS_ITS ---
Vital Signs 02/22/25 12:57 Height 5 ft 2 in Weight 115 lb 8 oz BMI 21.1 BP 128/82 Blood Pressure Location Rt brachial Position Sitting Pulse 74 Pulse Source Pulse Oximeter Pulse Oximetry (%) 96 Oxygen Delivery Method Room Air Intake Visit Reasons: 4 month F/U Intake Note: Follow up Cognitive disorder, recurrent falls and Alcoholism Resource Director Required: No Accompanied by: spouse and daughter Allergies clonazepam Allergy (Unknown, Verified 02/22/25 12:57) amnesia, suicidal thoughts lorazepam Allergy (Unknown, Verified 02/22/25 12:57) unknown sertraline (Zoloft) Adverse Reaction (Unknown, Verified 02/22/25 12:57) unknown From WELLBUTRIN Allergy (Unknown, Uncoded 10/16/24 07:41) PATIENT BECOMES INSANE From ZOLOFT Allergy (Unknown, Uncoded 10/16/24 07:41) PT BECOMES INSANE Wellbutrin Allergy (Unknown, Uncoded 10/16/24 07:41) unknown ambien Adverse Reaction (Unknown, Uncoded 10/16/24 07:41) night mare, suicidal thoughts Medication List - Last Reconciled 02/22/25 by Analisa Donnelly MD donepezil 10 mg PO BEDTIME escitalopram oxalate 10 mg PO DAILY multivitamin 1 tab PO DAILY HPI Comments Details: 68y/o female with h/o alcohol abuse comes for follow up . Her feels her cognition is worse. she is worse - confused thinks she is living in a different appartment.she calls her daughter frequently confused.Family in concerned about her wandering . she reports seeing cats .( she has 1 cat ) No falls. she has fh/o dementia - her father was diagnosed in his 80s. she stopped drinking alcohol in 2022. no falls History from last visit- she stopped alcohol in November 2022 . Now her feels she has some short term memory issues but patient denies No episodes of syncope . she still dillon some postural lightheadedness. 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 she stopped working last fall and has been feeling good sicne then In November 2022 she was in [facility] brought by police. Police Department explained , bystanders found that the patient was trying to get into strange is cars, acting erratic, screaming.? Patient was with her who was intoxicated as well.? Patient became combative with PD and EMS.? Patient had to be restrained and was brought to the emergency room.? EEG was normal MRI = showed incidental 8 mm calcified extra axial nodule left frontal convexity mass likely meningioma , mild chronic angiopathy, global volume loss Her father had dementia [facility] Medical History Cognitive disorder Meningioma Cognitive disorder Major depressive disorder Subdural bleeding Cataract Alcoholism Surgical History Hx of section Family History Brother Cancer Social History Household Members: Spouse Household Members Other:: SPOUSE OF 20 YEARS Housing: Apartment Housing Other:: [place] Do you presently have visiting nurse or other home services: No Alcohol intake: former Patient Tobacco Use Status: Never used Tobacco e-Cigarette/Vaping Use: Never Used Second Hand Smoke Exposure: No Advance Directives Date on File: 08/23/21 service: No Current occupational status: employed 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 Sexual orientation: Straight/Heterosexual Cognitive needs: No Hearing needs: No Vision needs: No Physical Exam Vital Signs: Last Vital Signs Pulse 74 02/22/25 12:57 BP 128/82 02/22/25 12:57 Pulse Ox 96 02/22/25 12:57 Oxygen Delivery Method Room Air 02/22/25 12:57 BMI result Body Mass Index 21.1 Const General: cooperative and comfortable Nutritional Appearance: average body habitus Orientation/consciousness: patient oriented x3 Limitations: no limitations HEENT Head: Yes normal to inspection and Yes normocephalic Eyes Pupils: Equal, round and reactive pupils present Neck Neck: Yes no meningeal signs Neuro Other: slow tandem Slow FN Postural and action tremors anxious see attached MOCA - General: patient oriented x3, gait normal, tone normal, moves all extremities, no meningeal signs and no focal motor deficits Cranial nerves: Yes Equal, round and reactive pupils present, Yes Bilaterally intact EOM present, Yes Nystagmus not present, Yes Normal facial strength present, Yes Midline tongue present and Yes Symmetric palate elevation present Cognition (Neuro): normal cognition Gait exam (Neuro): Normal gait present Motor exam (neuro): 5/5 motor strength present throughout and Normal motor muscle tone present throughout Coordination: [id number] test normal Psych Appearance: grossly normal Assessment & Plan Assessment & Plan (1) Cognitive disorder: Code(s): F09 - Unspecified mental disorder due to known physiological condition Category: Medical (2) Recurrent falls: Comment: related to alcohol- none since last visit Code(s): R29.6 - Repeated falls Category: Medical (3) Alcoholism: Comment: Patient is doing good since November 2022 Code(s): F10.20 - Alcohol dependence, uncomplicated Category: Medical (4) Meningioma: Code(s): D32.9 - Benign neoplasm of meninges, unspecified Category: Medical Plan MMSE Continue escitalopram 10 mg for anxiety reviewed MRI Increase fluids. Psychiatry eval for delusion- [facility] , contact [facility] for CILNICAL SCIENTIST Medications: Changed From donepezil 1/2 tab qd for 4 weeks and 1 tab qd orally bedtime; 30 tabs 6RF To donepezil 10 mg PO BEDTIME 90 tabs 6RF Refilled escitalopram oxalate 10 mg PO DAILY 30 tabs 6RF Coding Level of Care Code Est Pt Level 4 (22679) Complex EM visit Add On G2211 Diagnoses Cognitive disorder F09 Recurrent falls R29.6 Alcoholism F10.20 Meningioma D32.9
[2025-02-22 12:57] VITALS: BP 128/82; PULSE 74; O2SAT 96; BMI 21.1
== END 2025-02-22 13:36 | disposition home or self-care (01) ==
LOC: HO.HSMS 12:55
PROVIDERS: Visit Provider Psychiatry & Neurology Neurology
DX: R41.89 Other symptoms and signs involving cognitive functions and awareness (principal); R29.6 Repeated falls; F10.20 Alcohol dependence, uncomplicated; D32.9 Benign neoplasm of meninges, unspecified
CPT/HCPCS: 99214; G2211

== ENCOUNTER → 2025-02-22 12:54 | Outpatient (BNVA) | payer MEDICARE, SELFPAY | PROVIDERS: Visit Provider Psychiatry & Neurology Neurology | DX: F09 Unspecified mental disorder due to known physiological condition (principal); R29.6 Repeated falls; D32.9 Benign neoplasm of meninges, unspecified; F10.20 Alcohol dependence, uncomplicated | CPT/HCPCS: 99212 ==

== ENCOUNTER 2025-03-08 01:42 | Emergency (ER) | payer MEDICARE, SELFPAY ==
--- NOTE | ~2025-03-08 | CT_ITS ---
CLINICAL HISTORY: AMS; Confusion CT head without contrast Comparison: CT/SR - CT HEAD WITHOUT IV CONTRAST - 04/29/22 12:14 EST Findings: No intra-axial mass, midline shift, hydrocephalus, or acute hemorrhage. Mild atrophy like change. The visualized paranasal sinuses and mastoid air cells are normal. The orbits are within normal limits. There is no acute fracture. IMPRESSION: 1. No acute intracranial findings. This document has been electronically signed by: Alesia Gray MD on 03/08/2025 03:49:06
[2025-03-08 01:54] VITALS: BP 149/94; PULSE 80; RESP 18; TEMP 36.3; O2SAT 98; BMI 20.8
--- NOTE | 2025-03-08 02:13 | ECG_ITS ---
Test Reason : ams Blood Pressure : */* mmHG Vent. Rate : 67 BPM Atrial Rate : 67 BPM P-R Int : 150 ms QRS Dur : 90 ms QT Int : 386 ms P-R-T Axes : 44 32 44 degrees QTcB Int : 407 ms Normal sinus rhythm Normal ECG When compared with ECG of 24-Nov-2022 16:21, No significant change was found Referred By: Chriss Perez Electronically Signed By: DARIUS DAY
--- OUTSIDE RECORDS SUMMARY | 2025-03-08 02:36 | XMS_ITS | Patient Health Record ---
Author Organization [facility] Address [address] [place] [address] Care Team Providers Care Community Development Technician Name Role Phone Mike Cobos Unavailable [phone] Reason For Referral No Information Plan Of Treatment No Information
[2025-03-08 02:39] LABS: MANUAL DIFF FLAG NO
[2025-03-08 02:45] LABS: Hematocrit 37.3 % (37.0-47.0); Hemoglobin 12.6 g/dl (12.0-16.0); Imm Gran Abs Auto 0.01 X10*3/uL (0.00-0.03); Imm Gran Pct Auto 0.2 % (0.0-0.4); Lymphocytes Absolute Auto 1.5 X10*3/uL (1.2-4.9); Mean Corpuscular HGB Conc 33.8 g/dl (31.0-35.0); Mean Corpuscular Hemoglobin 29.9 pg (27.0-33.0); Mean Corpuscular Volume 88.4 fL (80.0-98.0); NRBC Abs Auto 0.000 X10*3/uL (0.0-0.012); NRBC Pct Auto 0.0 /100WBC (0.0-0.2); Platelet Count 253 X10*3/uL (160-400); Red Blood Count 4.22 X10*6/uL (4.20-5.50); White Blood Count 5.5 X10*3/uL (4.8-10.8)
--- NOTE | 2025-03-08 02:47 | ED.AMS ---
HPI - Altered Mental Status General Chief Complaint: Altered Mental Status Stated Complaint: difficulty with brain she stated Time Seen by Provider: 03/08/25 02:11 Source: family Mode of arrival: ambulatory Limitations: altered mental status History of Present Illness ED Provider: Chriss JAIMES HPI narrative: The patient is a 68-year-old female with a history of cognitive disorder, recurrent falls, alcohol dependency, meningioma, and major depression, presenting to the emergency department for evaluation of disorientation. The patient reports she woke up 2 hours ago in ?my old bed, in my old home, and I was very disoriented. The patient reports she currently lives in a new home but can not recall where that home is, can not recall the town in which it is located. The patient reports she had a very tiring day, went to bed earlier and then woke up in her old home in [place]. The patient reports she lives with her Andrew but reports no one was home in her old home when she woke, patient reports she became worried about her disorientation and walked to the hospital. The patient denies any substance use, denies any recent fall or other trauma. The patient is alert to person and place, able to identify the current president and current location, however is disoriented to time, accurately describes falls the current season, however states it is 2023. The patient denies focal weakness, headache, vision changes, dizziness, chest pain, shortness of breath, abdominal pain, nausea, vomiting, fever/chills, dysuria, hematuria, diarrhea, constipation, or other acute somatic complaint. The patient denies any suicidal or homicidal ideation, denies auditory or visual hallucinations. Related Data Home Medications ?Medication ?Instructions ?Recorded ?Confirmed multivitamin 1 tab PO DAILY 02/22/25 03/08/25 Previous Rx's ?Medication ?Instructions ?Recorded donepezil 10 mg tablet 10 mg PO BEDTIME #90 tabs 02/22/25 escitalopram oxalate 10 mg tablet 10 mg PO DAILY #30 tabs 02/22/25 Allergies Allergy/AdvReac Type Severity Reaction Status Date / Time clonazepam Allergy Unknown amnesia, Verified 03/08/25 01:56 suicidal thoughts lorazepam Allergy Unknown unknown Verified 03/08/25 01:56 sertraline (Zoloft) AdvReac Unknown unknown Verified 03/08/25 01:56 From WELLBUTRIN Allergy Unknown PATIENT Uncoded 03/08/25 01:56 BECOMES INSANE From ZOLOFT Allergy Unknown PT BECOMES Uncoded 03/08/25 01:56 INSANE Wellbutrin Allergy Unknown unknown Uncoded 03/08/25 01:56 ambien AdvReac Unknown night Uncoded 03/08/25 01:56 mare, suicidal thoughts Review of Systems Review of Systems: Yes all other systems are reviewed and are negative PMFSH Past Medical History Medical History Cognitive disorder Meningioma Cognitive disorder Major depressive disorder Subdural bleeding Cataract Alcoholism Surgical History Hx of section Family History Family History Brother Cancer Social History Social History Household Members: Spouse Household Members Other:: SPOUSE OF 20 YEARS Housing: Apartment Housing Other:: IN [place] Do you presently have visiting nurse or other home services: No Alcohol intake: former Patient Tobacco Use Status: Never used Tobacco e-Cigarette/Vaping Use: Never Used Second Hand Smoke Exposure: No Advance Directives: No Advance Directives Date on File: 08/23/21 service: No Current occupational status: employed 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 Sexual orientation: Straight/Heterosexual Cognitive needs: No Hearing needs: No Vision needs: No Physical Exam ED Vital Signs: Vital Signs - 24 hr 03/08/25 01:54 03/08/25 04:00 03/08/25 07:05 Temperature 97.4 F 97.6 F 98.2 F Pulse Rate 80 82 88 Respiratory Rate 18 17 15 Blood Pressure 149/94 H 142/90 H 128/64 Pulse Oximetry 98 98 100 Oxygen Delivery Method Room Air Room Air Room Air 03/08/25 14:53 Temperature 98.2 F Pulse Rate 68 Respiratory Rate 16 Blood Pressure 118/61 Pulse Oximetry 98 Oxygen Delivery Method Room Air BMI result Body Mass Index 20.8 CONSTITUTIONAL: The patient appears non-toxic, well nourished and in no acute distress. Vital signs as documented. HEAD: Atraumatic, normocephalic. EYES: EOMs grossly intact, pupils equal, conjunctiva clear, no exudate. ENT: Nares patent, no discharge. Airway patent, no audible stridor, visible mucosa is pink and moist without noted lesions. NECK: Trachea is midline, no obvious masses or gross abnormalities. CHEST: Symmetric movement, normal appearance. LUNGS: LS present and CTAB, no w/r/r. Non-labored work of breathing. CARDIAC: Regular Rhythm, S1/S2 appreciated, no murmurs, rubs or gallops. ABDOMEN: Abdomen soft and non-tender x4 quadrants, no palpable masses or organomegaly. : Deferred. EXTREMITIES: Normal tone, moves all extremities spontaneously without reported pain. No obvious acute injury or deformity noted. NEURO: Alert and oriented x2, disoriented to time and situation, CN II-XII appear grossly intact. Cerebellar Functioning grossly intact. No obvious sensory or motor deficits. Speech clear and appropriate. PSYCH: normal affect, appropriate eye contact, fluid speech, with appropriate response to questioning. No reported suicidality or homicidality. SKIN: Warm, dry, color appropriate, normal turgor. No rashes noted. Course Reevaluation(s) Reevaluation #1: 9:02 AM 03/08/2025 (Dr. Theodore Land): Placed case management consult to help with placement Time: 16:55 Date: 03/08/25 Provider: THEODORE Booth Physician observation ended at 1655. Patient seen and cleared by psych team who suspect patient's symptoms are secondary to dementia- she does not meet criteria for admission at this time. I spoke with Regina from case management. After discussion with patient's has been, they were able to determine a safe disposition. Patient's and daughter we will be providing 24 hour supervision at home. They are looking into a camera/alarm system for the home. They have appropriate follow up scheduled next week with [facility] and PCP regarding patient's dementia. Patient's feels comfortable with patient being discharged home at this time. Patient is agreeable with plan and patient is stable for discharge at this time. Medical Decision Making Medical Decision Making MDM Narrative: 2:52 AM 03/08/2025 (Mercedes JAIMES): The patient is a 68-year-old female with a history of cognitive disorder, recurrent falls, alcohol dependency, meningioma, and major depression, presenting to the emergency department for evaluation of disorientation. The patient reports she woke up 2 hours ago in ?my old bed, in my old home, and I was very disoriented. The patient reports she currently lives in a new home but can not recall where that home is, can not recall the town in which it is located. The patient reports she had a very tiring day, went to bed earlier and then woke up in her old home in [place]. The patient reports she lives with her Andrew but reports no one was home in her old home when she woke, patient reports she became worried about her disorientation and walked to the hospital. The patient denies any substance use, denies any recent fall or other trauma. The patient is alert to person and place, able to identify the current president and current location, however is disoriented to time, accurately describes falls the current season, however states it is 2023. The patient denies focal weakness, headache, vision changes, dizziness, chest pain, shortness of breath, abdominal pain, nausea, vomiting, fever/chills, dysuria, hematuria, diarrhea, constipation, or other acute somatic complaint. The patient denies any suicidal or homicidal ideation, denies auditory or visual hallucinations. On exam the patient is well-appearing, in no acute distress, no acute findings on exam. Patient gave permission for this provider to contact family for more information. This provider was able to make contact with the patient's spouse Andrew, who states the patient has suffers from dementia and he believes she is also suffering from psychological disturbances. The patient's spouse advises they have lived in the same apartment in [place] for the last 18 years however she suffers from recurrent delusions that they moved from that apartment years ago. Spouse Andrew advises patient was sleeping when he went to bed, and until the time of this provider's phone call Andrew had not woken, and was unaware the patient had woken and left the apartment. Andrew's requesting psychiatry consultation. We will obtain infectious, neurologic, metabolic, and toxicology workup. If no somatic cause for symptoms of increased disorientation/confusion, the patient will be referred to the crisis team for Reena psych consultation. 3:56 AM 03/08/2025 (Mercedes JAIMES): The patient's EKG is nonischemic, troponin is negative. CT has resulted and shows no evidence of acute intracranial pathology. The patient's laboratory evaluation has begun resulting and shows no leukocytosis, anemia, electrolyte abnormality, or ANTON. The patient's LFTs are unremarkable, ethanol level is negative, no elevation of salicylates or Tylenol. The patient's urinalysis is pending. Patient remains hemodynamically stable, pending unremarkable urinalysis patient will be medically cleared for Reena psych consultation. 5:41 AM 03/08/2025 (Mercedes JAIMES): The patient's urinalysis is negative for infection. Patient is medically cleared and will be ordered for a crisis consultation, to determine need for a Reena psych consultation. Admission/Observation Consideration of admission/observation: Escalation of care including admission/observation considered Lab Data MDM Lab Attestation statement: I reviewed the patient's lab results. 03/08/25 02:32 03/08/25 02:32 Labs: Lab Results 03/08/25 03/08/25 Range/Units 02:32 05:22 WBC 5.5 (4.8-10.8) X10*3/uL RBC 4.22 (4.20-5.50) X10*6/uL Hgb 12.6 (12.0-16.0) g/dl Hct 37.3 (37.0-47.0) % MCV 88.4 (80.0-98.0) fL MCH 29.9 (27.0-33.0) pg MCHC 33.8 (31.0-35.0) g/dl RDW 13.7 (11.0-16.0) % Plt Count 253 (160-400) X10*3/uL MPV 9.7 (9.4-12.3) fL Immature Gran % (Auto) 0.2 (0.0-0.4) % Neut % (Auto) 61.3 (45-73) % Lymph % (Auto) 28.0 (20-40) % Grant % (Auto) 8.0 (2-11) % Eos % (Auto) 1.6 (0-4) % Baso % (Auto) 0.9 (0-2) % Lymph # (Auto) 1.5 (1.2-4.9) X10*3/uL Grant # (Auto) 0.4 (0.1-1.2) X10*3/uL Eos # (Auto) 0.1 (0.0-0.4) X10*3/uL Baso # (Auto) 0.1 (0.0-0.2) X10*3/uL Abs Immat Gran (auto) 0.01 (0.00-0.03) X10*3/uL Absolute Neuts (auto) 3.4 (2.0-8.3) x10*3/uL Absolute Nucleated RBC 0.000 (0.0-0.012) X10*3/uL Nucleated RBC % (auto) 0.0 (0.0-0.2) /100WBC Sodium 142 (135-145) mmol/L Potassium 3.4 (3.3-5.1) mmol/L Chloride 106 (96-108) mmol/L Carbon Dioxide 27 (22-29) mmol/L Anion Gap 12 (12-20) BUN 13 (9-16) mg/dL Creatinine 0.99 (0.5-1.4) mg/dL Estim Creat Clear Calc 43.6 Estimated GFR 56 Random Glucose 105 (60-115) mg/dL Calcium 9.4 (8.4-10.2) mg/dL Total Bilirubin 0.2 (0.0-1.0) mg/dL AST 31 (5-31) U/L ALT 21 (0-31) U/L Alkaline Phosphatase 33 L (39-117) U/L Ammonia 19 (13-55) umol/L Troponin I High Sens < 2.7 (<3.5-17.0) ng/L Total Protein 6.7 (6.5-8.0) g/dL Albumin 4.4 (3.5-5.0) g/dL Urine Color Yellow Urine Appearance Clear Urine pH 7.5 (5.0-9.0) Ur Specific [place] 1.010 (1.005-1.025) Urine Protein Negative (Neg-Trace) mg/dL Urine Glucose (UA) Negative (Negative) mg/dL Urine Ketones Negative (Negative) mg/dL Urine Blood Negative (Negative) Urine Nitrite Negative (Negative) Ur Leukocyte Esterase Negative (Negative) Salicylates < 5.0 L (15-30) mg/dL Urine Opiates Screen Not Detected (Not Detect) Ur Buprenorphine Scrn Not Detected (Not Detect) ng/mL Ur Oxycodone Screen Not Detected (Not Detect) ng/mL Urine Methadone Screen Not Detected (Not Detect) ng/mL Urine Fentanyl Screen Not Detected (Not Detect) Acetaminophen < 3 (<30) mcg/mL Ur Barbiturates Screen Not Detected (Not Detect) Ur Phencyclidine Scrn Not Detected (Not Detect) Ur Amphetamines Screen Not Detected (Not Detect) U Benzodiazepines Scrn Not Detected (Not Detect) Urine Cocaine Screen Not Detected (Not Detect) U Marijuana (THC) Screen Not Detected (Not Detect) Ethyl Alcohol < 10 mg/dL Independent Interpretation I performed an independent interpretation of an: EKG (EKG shows sinus rhythm with a rate of 67, no evidence of acute ischemia, no ST elevation, no ectopy. Compared to previous on 11/24/2022 there are no significant morphology changes.) Radiology Impression Discussion of test interpretation with radiology: I have reviewed the radiologist's reading. Radiologist Impression: CT head without contrast Comparison: CT/SR - CT HEAD WITHOUT IV CONTRAST - 04/29/22 12:14 EST Findings: No intra-axial mass, midline shift, hydrocephalus, or acute hemorrhage. Mild atrophy like change. The visualized paranasal sinuses and mastoid air cells are normal. The orbits are within normal limits. There is no acute fracture. IMPRESSION: 1. No acute intracranial findings. This document has been electronically signed by: Alesia Gray MD on 03/08/2025 03:49:06 Discharge Plan Discharge Clinical Impression: Dementia Patient Disposition: Home, Self-Care Instructions: Dementia (ED) Additional Instructions: You were evaluated in our ED with reassuring workup. You were evaluated by our psych team. You do not require admission at this time. Your symptoms are secondary to your dementia. Case management has met with you and family to discuss a safe disposition. You have appropriate follow up with [facility] and your PCP next week. Please return with any new or worsening symptoms. In the case of an emergency call 911. Prescriptions: No Action multivitamin Tablet 1 tab PO DAILY donepezil 10 mg tablet 10 mg PO BEDTIME Qty: 90 6RF escitalopram oxalate 10 mg tablet 10 mg PO DAILY Qty: 30 6RF Referrals: Physician,None [Primary Care Provider, Medical] N Crisis [Outside] Print Language: Kyrgyz
[2025-03-08 02:49] LABS: Ammonia 19 umol/L (13-55)
[2025-03-08 03:03] LABS: Alanine Aminotransferase 21 U/L (0-31); Albumin Level 4.4 g/dL (3.5-5.0); Alkaline Phosphatase 33 U/L (39-117); Anion Gap 12 (12-20); Aspartate Amino Transferase 31 U/L (5-31); Blood Urea Nitrogen 13 mg/dL (9-16); Calcium 9.4 mg/dL (8.4-10.2); Carbon Dioxide 27 mmol/L (22-29); Chloride 106 mmol/L (96-108); Creatinine Clr Calc Pharmacy 43.6; Estimated Glomerular Filt Rate 56; Potassium 3.4 mmol/L (3.3-5.1); Salicylate < 5.0 mg/dL (15-30); Sodium 142 mmol/L (135-145); Total Protein 6.7 g/dL (6.5-8.0); Troponin-I High Sensitivity < 2.7 ng/L (<3.5-17.0)
[2025-03-08 03:34] LABS: Acetaminophen LAB < 3 mcg/mL (<30)
[2025-03-08 04:00] VITALS: BP 142/90; PULSE 82; RESP 17; TEMP 36.4; O2SAT 98
[2025-03-08 05:28] LABS: Appearance Urine Clear; Glucose Urine UA Negative (Negative); PH 7.5 (5.0-9.0); Specific Gravity - Urine 1.010 (1.005-1.025)
[2025-03-08 05:39] LABS: Cannabinoid Screen Urine Not Detected (Not Detect)
[2025-03-08 07:05] VITALS: BP 128/64; PULSE 88; RESP 15; TEMP 36.8; O2SAT 100
--- NOTE | 2025-03-08 08:23 | PC.NURSE ---
Assumed care, report received. Pt is brought from the main ED to the POD. she is oriented to her room and the POD. She is calm and cooperative, she remains confused and has difficulty putting a gown on the correct way. Her daughter Rachael calls to provide info and inquire about the POC. Rachael [phone]. Rachael states Pt has started seeing a Neurologist and diagnosed with Dementia. SHe is also seeing a new Psychiatrist for depression
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
[2025-03-08 14:53] VITALS: BP 118/61; PULSE 68; RESP 16; TEMP 36.8; O2SAT 98
[2025-03-08 17:09] VITALS: BP 118/61; PULSE 68; RESP 16; TEMP 36.8
--- NOTE | 2025-03-08 17:57 | MHC.CM.ED ---
CM met with patient. She is very pleasant. She tells CM that something is wrong with her brain . She tells CM she walked to the ED down [facility] because there is something wrong with her brain. She said she walked on the side of the road. She thinks it was during the day. It was at 2am. She does not understand the danger involved in walking at that time of the night. CM spoke with her , Andrew. He has a good understanding of dementia, as his mother in law had dementia. He states that he can care for her at home. He understands the danger of her wandering. He said he will install door alarms. 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 He tells CM that one of his 's daughters stay with her while he works. He tells me she is not alone. He tells me she does not cook or use the stove. Pt has an appointment with Maurizio for a psychiatrist on wednesday, it is virtual and has a new PCP appointment with Az Verduzco on Wednesday at 1:30. Per Psych-No IPLOC. is requesting to take her home. He does feel she is safe. Provider aware of conversation. Will D/C home with . Primary RN informed CM that [facility] has called her twice. I attempted to call them back ([phone]) but they were closed. I left them a message
== END 2025-03-08 17:13 | disposition home or self-care (01) ==
PROVIDERS: Physician Assistant; Emergency Provider Emergency Medicine
DX: G30.9 Alzheimer's disease, unspecified (principal); F06.70 Mild neurocognitive disorder due to known physiological condition without behavioral disturbance; F05 Delirium due to known physiological condition; Z51.81 Encounter for therapeutic drug level monitoring; Z79.899 Other long term (current) drug therapy
CPT/HCPCS: 36415; 70450; 80053; 80143; 80179; 80307; 81003; 82140; 84484; 85025; 93005; 99285; S9485

== ENCOUNTER → 2025-03-08 02:10 | Outpatient (BNV) | payer MEDICARE, SELFPAY | PROVIDERS: Emergency Provider Emergency Medicine; Visit Provider Radiology Diagnostic Radiology | DX: R41.82 Altered mental status, unspecified (principal) | CPT/HCPCS: 70450 ==

== ENCOUNTER → 2025-03-08 02:13 | Outpatient (BNV) | payer MEDICARE, SELFPAY | PROVIDERS: Emergency Provider Emergency Medicine; Visit Provider Internal Medicine | DX: R41.82 Altered mental status, unspecified (principal) | CPT/HCPCS: 93010 ==

== ENCOUNTER → 2025-03-08 02:30 | Outpatient (BNV) | payer MEDICARE, SELFPAY | PROVIDERS: Emergency Provider Emergency Medicine; Visit Provider Social Worker | DX: G30.1 Alzheimer's disease with late onset (principal); F02.80 Dementia in other diseases classified elsewhere, unspecified severity, without behavioral disturbance, psychotic disturbance, mood disturbance, and anxiety | CPT/HCPCS: 99284 ==

== ENCOUNTER 2025-03-14 13:33 | Outpatient (AMB) | payer MEDICARE, SELFPAY ==
--- NOTE | 2025-03-14 13:36 | A.OFFVIS_ITS ---
Intake Vital Signs 03/14/25 13:37 Height 5 ft 2 in Weight 115 lb BMI 21.0 BP 110/72 Blood Pressure Location Rt brachial Position Sitting Pulse 68 Pulse Source Pulse Oximeter Pulse Oximetry (%) 98 Oxygen Delivery Method Room Air Intake Visit Reasons: AWV G0438- overdue Measurement Supervisor Required: No Accompanied by: Daughter Allergies clonazepam Allergy (Unknown, Verified 03/14/25 13:37) amnesia, suicidal thoughts lorazepam Allergy (Unknown, Verified 03/14/25 13:37) unknown sertraline (Zoloft) Adverse Reaction (Unknown, Verified 03/14/25 13:37) unknown From WELLBUTRIN Allergy (Unknown, Uncoded 03/08/25 01:56) PATIENT BECOMES INSANE From ZOLOFT Allergy (Unknown, Uncoded 03/08/25 01:56) PT BECOMES INSANE Wellbutrin Allergy (Unknown, Uncoded 03/08/25 01:56) unknown ambien Adverse Reaction (Unknown, Uncoded 03/08/25 01:56) night mare, suicidal thoughts Medication List - Last Reconciled 03/14/25 by Az Verduzco MD donepezil 10 mg PO BEDTIME escitalopram oxalate 10 mg PO DAILY multivitamin 1 tab PO DAILY Do you need a note to return to daycare/school/sports/work: No HPI AWV G0438- overdue HPI Details History of Present Illness The patient is a 68-year-old female presenting for a Medicare wellness visit. Preventative Screening: - The patient is due for a mammogram, la st one not recalled. - The patient is likely due for an OB/GY N examination, including a pap smear. Colon Cancer Screening: - The patient has never had a colonoscop y. - The patient inquired about and agreed to colon cancer screening. Vaccination Status: - The patient had a tetanus vaccination in 2021. - There is uncertainty regarding other v accinations. - The patient should consider pneumonia and shingles vaccinations. Bone Health: - The patient has a small frame and is p ost-menopausal. - Discussion about the need for a bone d ensity scan. Vision Care: - The patient had Lasik surgery some yea rs ago. - The patient was reminded of the necess ity of annual eye exams.y Social History: - The patient utilizes outdoor walking a s a form of exercise. - The patient requires some reminding fo r daily tasks but can independently manage financial obligations. - The patient does not use a car for tra devante but can handle personal care needs without assistance. Problem List - Preventative screening overdue - Colon cancer screening overdue - Vaccination status update pending - Bone health assessment needed - Vision care update needed Plan - Schedule and perform a mammogram. - Arrange for an MANUFACTURING ASSOCIATE exam and pap sme ar. - Plan for colonoscopy for colon cancer screening due to her age. - Verify and update vaccination records, specifically for pneumonia and shingles. - Conduct a bone density scan to evaluat e bone health due to risk factors. - Recommend scheduling regular eye exams . HPI Comments History of Present Illness Details AWV Medical/social history reviewed Past medical history reviewed [place] of care / care team list updated Surgical/ hospitalization history reviewed Current medications including OTC and supplements reviewed Family history reviewed Tobacco controlled form updated Alcohol use form updated Illicit drug use in social history reviewed Current diagnosis of depression ?screening updated Appropriate PHQ 2/PHQ-9 completed . Vital signs reviewed Alcohol tobacco drug use reviewed and discussed . MMSE completed . ? Fall risk: ?Assessed Fall history: ?None Have you had any falls with injury in the past year?? No Have you had 2 or more falls in the past year?? No Fall risk assessment completed Home safety discussed with the patient Functional ability assessed and discussed and documented Activities of daily living reviewed and appropriate actions taken . HRA filled out by the patient and reviewed by provider and scanned . Appropriate written screening schedule established . Any health advise needed provided . Advance care planning discussed with the patient , necessary paperwork filled Examination IPPE/AWE: Balance intact Romberg intact Tandem walk intact walk-in turn intact rise from sit to stand intact . ?Hearing ?whisper test pass . Medication list reviewed, patient is stable on medications All other providers patient is seeing discussed and noted . [facility] Medical History Cognitive disorder Meningioma Cognitive disorder Major depressive disorder Subdural bleeding Cataract Alcoholism Surgical History Hx of section Family History Brother Cancer Social History Household Members: Spouse Household Members Other:: SPOUSE OF 20 YEARS Housing: Apartment Housing Other:: [place] Do you presently have visiting nurse or other home services: No Alcohol intake: former Patient Tobacco Use Status: Never used Tobacco e-Cigarette/Vaping Use: Never Used Second Hand Smoke Exposure: No Advance Directives Date on File: 08/23/21 service: No Current occupational status: employed 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 Sexual orientation: Straight/Heterosexual Cognitive needs: No Hearing needs: No Vision needs: No Questionnaire Medicare Wellness Checkup What [age] 65-70 What gender do you identify with?: female During the past 4 weeks, how much have you been bothered by emotional problems such as feeling anxious, depressed, irritable, sad or downhearted, and blue?: quite a bit During the past 4 weeks, has your physical & emotional health limited your s ocial activities with family, friends, neighbors, or groups?: moderately During the past 4 weeks, how much bodily pain have you generally had?: very mild pain During the past 4 weeks, was someone available to help you if you needed & wanted help?: yes, quite a bit During the past 4 weeks, what was the hardest physical activity you could do for at least 2 minutes?: heavy Can you get to places out of walking distance without help? (For eg., can you travel alone on buses, taxis or drive your car?): No Can you go shopping for groceries or clothes without someone's help?: Yes Can you prepare your own meals?: Yes Can you do your housework without help?: Yes Because of any health problems, do you need the help of another person with your personal care needs such as eating, bathing, dressing or getting around the house?: No Can you handle your own money without help?: Yes During the past 4 weeks, how would you rate your health in general?: very good During the past 4 weeks how have things been going for you?: good & bad parts about equal Are you having difficulties driving your car?: not applicable, I don't use a car Do you always fasten your seat belt when you are in a car?: yes, usually During past 4 weeks, have you been bothered by the following: never: Sexual problems?, Teeth or denture problems? and Problems using the telephone? and sometimes: Falling or dizzy when standing up, Trouble eating well? and Tiredness or fatigue? Have you fallen 2 or more times in the past year?: No Are you afraid of falling?: No Are you a smoker?: no During the past 4 weeks, how many drinks of wine, beer, or other alcoholic beverages did you have?: no alcohol at all Do you exercise for about 20 minutes 3 or more times a week?: yes, some of the time Have you been given information to help with the following?: no: Hazards in your house that might hurt you? and no: Keeping track of your medications? How often do you have trouble taking medicines the way you have been told to take them?: sometimes I take medicine as prescribed How confident are you that you can control & manage most of your health problems?: somewhat confident What is your race?: White Mini Mental State Exam (MMSE) Orientation What is the (year) (season) (date) (day) (month)?: year, season, date, day and month Where are we (state) (county) (town or city) (hospital) (floor)?: state, county, town or city, hospital/clinic and floor Score Score: 10 Activity of Daily Living Bathing - sponge bath, tub bath or shower: receives no assistance (gets in/out by self, if usual bathing means Dressing - getting clothes from closets & drawers, including inner/outer garments & fasteners.: gets clothes & gets completely dressed without help Toileting - going to the 'toilet room' for urine/bowel elimination & cleaning self/arranging clothes: goes to toilet room, cleans self, arranges clothes without help Transfer: moves in & out of bed and chair without help (may use support object) Feeding: feeds self without help Total Score: 0 Information obtained from: patient Using telephone: independent Traveling: needs assistance Shopping: needs assistance Preparing meals: needs assistance Housework: independent Taking medicine: needs assistance Managing money: needs assistance PHQ-9 Over the last 2 weeks, how often have you been bothered by any of the following problems? 1. Little interest or pleasure in doing things: not at all 2. Feeling down, depressed, or hopeless: nearly every day 3. Trouble falling or staying asleep, or sleeping too much: several days 4. Feeling tired or having little energy: nearly every day 5. Poor appetite or overeating: nearly every day 6. Feeling bad about yourself - or that you are a failure or have let yourself or your family down: not at all 7. Trouble concentrating on things, such as reading the newspaper or watching television: several days 8. Moving or speaking so slowly that other people could have noticed. Or the opposite - being so fidgety or restless that you have been moving around a lot more than usual: not at all 9. Thoughts that you would be better off or of hurting yourself in some way: not at all Total score: 11 Depression Screening Interpretation: Positive Depression Screening Follow-up: Existing condition and In treatment Depression Screening Done: Yes 91661 - PHQ-9 Billing: Yes Source: Developed by Drs. Mike Pineda, Barbara Mart, Luis Alfredo Ely and colleagues, with an educational donald from [employer]. GLORIA-7 AMB Questionnaire GLORIA-7 Date GLORIA - 7 assessed: 03/14/25 (declined) Source: Developed by Drs. Mike Pineda, Barbara Mart, Luis Alfredo Ely and colleagues, with an educational donald from [employer]. Physical Exam Vital Signs: Last Vital Signs Pulse 68 03/14/25 13:37 BP 110/72 03/14/25 13:37 Pulse Ox 98 03/14/25 13:37 Oxygen Delivery Method Room Air 03/14/25 13:37 BMI result Body Mass Index 21.0 Assessment & Plan Assessment & Plan (1) Medicare annual wellness visit, initial: Code(s): Z00.00 - Encounter for general adult medical examination without abnormal findings Plan History of Present Illness The patient is a 68-year-old female presenting for a Medicare wellness visit. Preventative Screening: - The patient is due for a mammogram, last one not recalled. - The patient is likely due for an MANUFACTURING ASSOCIATE examination, including a pap smear. Colon Cancer Screening: - The patient has never had a colonoscopy. - The patient inquired about and agreed to colon cancer screening. Vaccination Status: - The patient had a tetanus vaccination in 2021. - There is uncertainty regarding other vaccinations. - The patient should consider pneumonia and shingles vaccinations. Bone Health: - The patient has a small frame and is post-menopausal. - Discussion about the need for a bone density scan. Vision Care: - The patient had Lasik surgery some years ago. - The patient was reminded of the necessity of annual eye exams.y Social History: - The patient utilizes outdoor walking as a form of exercise. - The patient requires some reminding for daily tasks but can independently manage financial obligations. - The patient does not use a car for travel but can handle personal care needs without assistance. Problem List - Preventative screening overdue - Colon cancer screening overdue - Vaccination status update pending - Bone health assessment needed - Vision care update needed Plan - Schedule and perform a mammogram. - Arrange for an MANUFACTURING ASSOCIATE exam and pap smear. - Plan for colonoscopy for colon cancer screening due to her age. - Verify and update vaccination records, specifically for pneumonia and shingles. - Conduct a bone density scan to evaluate bone health due to risk factors. - Recommend scheduling regular eye exams. Orders: Orders XR DEXA axial skeleton Today N95.1 - Menopausal and female climacteric states MM tomosynthesis screening BI Today Z12.31 - Encounter for screening mammogram for malignant neoplasm of breast Referrals MANUFACTURING ASSOCIATE Referral Z01.419 - Encounter for gynecological examination (general) (routine) without abnormal findings Gastroenterology Referral Z12.11 - Encounter for screening for malignant neoplasm of colon Quality Reporting (2019) Depression/Bipolar (159/160/161/177) PHQ-9: Total score: 11 Coding Level of Care Code Medicare First (G0438) Diagnoses Medicare annual wellness visit, initial Z00.00 CPT Codes Advance Care Planning - Time spent: 16-45 minutes ([id number]) Additional Codes PHQ-9 - 44086 - PHQ-9 Billing: Yes ([id number]) Advance Care Planning Advance Care Planning discussion: Completed/Scanned Date of discussion: 03/14/25 Forms completed: Health Care Proxy and [facility]OLST Time spent: 16-45 minutes Actual minutes spent: 17 (Discussed with daughter who is going to be the healthcare proxy and is present)
[2025-03-14 13:37] VITALS: BP 110/72; PULSE 68; O2SAT 98; BMI 21.0
== END 2025-03-14 14:24 | disposition home or self-care (01) ==
PROVIDERS: Visit Provider Internal Medicine
DX: Z00.00 Encounter for general adult medical examination without abnormal findings (principal)

== ENCOUNTER → 2025-03-14 13:33 | Outpatient (BNVA) | payer MEDICARE, SELFPAY | PROVIDERS: Visit Provider Internal Medicine | DX: Z00.00 Encounter for general adult medical examination without abnormal findings (principal); N95.1 Menopausal and female climacteric states | CPT/HCPCS: 96127; 99497 ==

== ENCOUNTER 2025-03-28 20:53 | Emergency (ER) | payer MEDICARE, SELFPAY ==
[2025-03-28 20:56] VITALS: BP 130/84; PULSE 83; RESP 20; TEMP 36.3; O2SAT 99; BMI 24.6
--- NOTE | 2025-03-28 21:15 | PC.NURSE ---
attempted to call patients Andrew to let him know patient is here at [facility] [place]. no answer from home or cell number on file.
--- NOTE | 2025-03-28 21:29 | PC.NURSE ---
charge operator to bedside to find patient sitting in chair in the room, picking off what appears to be wood chips from her clothing. The pt is awake, alert, pleasant and without distress noted. She was provided with a gown and asked to change, sweater and undershirt secured in nurses station. RN offered the pt food and beverage but she only accepted water. the pt's was contacted at home, he reports that the pt's phone location had her set for being in the home. he states since he has been home and it was quiet he thought she was upstairs sleeping and did not go up to check on her instead he went and laid on the couch and dozed off while watching tv. RN made aware, who once again states that the pt has upcoming [facility] psych appointment this Wednesday (which was the same story as her previous presentation on 03/08/25). encouraged to come in to discuss next steps and potential plan for PT/CM for placement and/or to initiate home services
--- NOTE | 2025-03-28 21:37 | MHC.CM.ED ---
Triage nurse spoke with CM about this patient, who presented to the ED at 9 pm, walking here from [facility], c/o brain not working right . This patient is known to this CM/ She was at [facility] [place], after walking to the ED down [facility] at 2am. Pt has dementia. She has no safety awareness. Reviewing medical record, CM spoke with , Andrew on 03/08. At that time, he felt he and his step-daughters could provide care for her. Reviewed safety measures, including locks on doors and alram cameras. Pt had an appointment on 03/13 with N and new PCP appointment later that week. At that time, discussed concerns about her safety and wandering. Discussed locks, alarms and cameras. Discussed family help. CM returned call from [facility] after patient went home, however, message was left for return call back. No call back received. Charge nurse called and spoke to him. He was unaware that patient had left the house. He will be in tonight to speak with provider and CM. Concerns about second wandering event in 10 days. Will need to file with [facility]. Awaiting husbands arrival. Provider aware. Will order screening labs.
[2025-03-28 21:48] VITALS: BP 128/59; PULSE 68; RESP 17; TEMP 36.4; O2SAT 97
[2025-03-28 22:02] LABS: Hematocrit 41.4 % (37.0-47.0); Hemoglobin 13.6 g/dl (12.0-16.0); Imm Gran Abs Auto 0.02 X10*3/uL (0.00-0.03); Imm Gran Pct Auto 0.2 % (0.0-0.4); Lymphocytes Absolute Auto 1.7 X10*3/uL (1.2-4.9); MANUAL DIFF FLAG NO; Mean Corpuscular HGB Conc 32.9 g/dl (31.0-35.0); Mean Corpuscular Hemoglobin 29.6 pg (27.0-33.0); Mean Corpuscular Volume 90.0 fL (80.0-98.0); NRBC Abs Auto 0.000 X10*3/uL (0.0-0.012); NRBC Pct Auto 0.0 /100WBC (0.0-0.2); Platelet Count 329 X10*3/uL (160-400); Red Blood Count 4.60 X10*6/uL (4.20-5.50); White Blood Count 9.5 X10*3/uL (4.8-10.8)
[2025-03-28 22:41] LABS: Alanine Aminotransferase 21 U/L (0-31); Albumin Level 4.8 g/dL (3.5-5.0); Alkaline Phosphatase 47 U/L (39-117); Anion Gap 16 (12-20); Aspartate Amino Transferase 39 U/L (5-31); Blood Urea Nitrogen 13 mg/dL (9-16); Calcium 9.9 mg/dL (8.4-10.2); Carbon Dioxide 26 mmol/L (22-29); Chloride 103 mmol/L (96-108); Creatinine Clr Calc Pharmacy 49.5; Estimated Glomerular Filt Rate > 60; Magnesium 2.3 mg/dL (1.6-2.6); Potassium 3.6 mmol/L (3.3-5.1); Sodium 141 mmol/L (135-145); Total Protein 7.5 g/dL (6.5-8.0)
--- OUTSIDE RECORDS SUMMARY | 2025-03-28 22:47 | XMS_ITS | Patient Health Record ---
Author Organization [facility] Address [address] [place] [address] Care Team Providers Care Electronic Tech Name Role Phone iMke Cobos Unavailable [phone] Reason For Referral No Information Plan Of Treatment No Information
--- NOTE | 2025-03-28 23:21 | MHC.CM.ED ---
Addendum entered by Nancy Hsu 03/29/25 16:59: CM spoke with Garret (mechatronics technologist [facility]) [phone] regarding this patient. Garret is in agreement that family is trying to care for her and has made some accommodations for her safety at home. Is in agreement that adult day care would be a wonderful option for this family. Stated that he would also request this with [facility] and suggested that CM also refer to [facility] for this service. Agrees that a wonderguard would be more beneficial that the phone GPS, as patient wandered last night without her phone. Garret will make a site visit with the family. Garret stressed that family be made aware that patient cannot be alone. CM spoke with daughter Joann and updated her with plan of care. Is requesting assistance with MH application. Will make referral. Sonal is aware that her mother cannot be left alone. , Andrew in. Reviewed plan of care. He is in agreement with [facility] referral for adult daycare, referral to [employer] for wanderguard and psych recommendation for respiderone. CM explained that his cannot be left alone. Andrew tells CM he can change his work hours. CM stressed 24/7 care until adult daycare can be arranged. Andrew would like to take his home tonight. JAYA will follow up with [employer] tomorrow. Addendum entered by Nancy Hsu 03/29/25 15:22: Message left with Officer Jorge Luis Echevarria-D elder services liaison regarding this patient and possible wanderguard . Requested return phone call. Original Note: JAYA met with , Andrew ([phone]). Per Andrew, his has been difficult to care for at times. Can be angry with her words and confused. Doesn't think she lives in their apartment, thinks people are stealing her things. He states she moves she belongings into another room, then thinks they are stolen. States she can can verbally mean at times. Admits to argument this am and states he left home early for work. His step daughter is with his in the morning. She is alone for a few hours in the afternoons. When he came home tonight about 5pm, her GPS tracking phone said she was home. He tells CM he did not want an argument, so he did not check on her, thinking she was sleeping. He was called by the charge nurse to tell him she wandered to the ED again. Andrew states they had a telephone intake 2 weeks ago with N and have a psych appointment next week. They also saw her PCP after their last ED visit. PCP is Dr. Az Verduzco. He tells CM that [facility] did a home visit. Pt takes Donepezil and Lexapro. feels his needs more medication to manage her outbursts. CM did speak with him at length about dementia. He tells me he has alarms on the doors. He admits he may have to stop working to care for her. Plan: Psych eval for medication management, Referral to [facility] . Adult Day Care so Andrew can work, Possible wanderguard-will call [employer] in the am to speak with [employer] prison officer , filed with [facility]. Andrew aware of plan and agreeable. Amie agreeable to remain in ED overnight. Provider, Charge nurse and primary nurse aware. CM will follow in am.
[2025-03-29 00:24] VITALS: BP 104/54; PULSE 63; RESP 12; O2SAT 97
[2025-03-29 02:44] VITALS: BP 103/64; PULSE 61; RESP 16; TEMP 36.6; O2SAT 96
--- NOTE | 2025-03-29 02:56 | ED.GENADULT ---
HPI - General Adult General Chief complaint: General Medical Stated complaint: has dementia and needed to get away Time Seen by Provider: 03/28/25 21:20 Source: patient, family and EMS Limitations: other (Dementia) History of Present Illness ED Provider: Judith Hennessy PA-C HPI narrative: 68-year-old female with a history of Alzheimer's dementia, prior alcohol use disorder, TBI, presents to the emergency department after she had eloped from home. Patient told EMS that she ?has been walking around all day because her was being impossible?. She further states ?he is giving me a hard time because of my memory?. The patient has no physical concerns or complaints at this time. Related Data Home Medications ?Medication ?Instructions ?Recorded ?Confirmed multivitamin 1 tab PO DAILY 02/22/25 03/29/25 Previous Rx's ?Medication ?Instructions ?Recorded donepezil 10 mg tablet 10 mg PO BEDTIME #90 tabs 02/22/25 escitalopram oxalate 10 mg tablet 10 mg PO DAILY #30 tabs 02/22/25 risperidone 0.25 mg tablet 0.25 mg PO BEDTIME #30 tabs 03/29/25 Allergies Allergy/AdvReac Type Severity Reaction Status Date / Time clonazepam Allergy Unknown amnesia, Verified 03/28/25 20:58 suicidal thoughts lorazepam Allergy Unknown unknown Verified 03/28/25 20:58 sertraline (Zoloft) AdvReac Unknown unknown Verified 03/28/25 20:58 From WELLBUTRIN Allergy Unknown PATIENT Uncoded 03/28/25 20:58 BECOMES INSANE From ZOLOFT Allergy Unknown PT BECOMES Uncoded 03/28/25 20:58 INSANE Wellbutrin Allergy Unknown unknown Uncoded 03/28/25 20:58 ambien AdvReac Unknown night Uncoded 03/28/25 20:58 mare, suicidal thoughts Review of Systems Review of Systems: Yes all other systems are reviewed and are negative Constitutional: Constitutional: Denies fatigue and Denies fever(s) Cardiovascular: Cardiovascular: Denies chest pain and Denies dyspnea Respiratory: Respiratory: Denies dyspnea Gastrointestinal: Gastrointestinal: Denies abdominal pain Endocrine: Endocrine: Denies fatigue PMFSH Past Medical History Attestation statement: The following information was validated with the patient. Medical History Cognitive disorder Meningioma Cognitive disorder Major depressive disorder Subdural bleeding Cataract Alcoholism Surgical History Hx of section Family History Family History Brother Cancer Social History Social History Household Members: Spouse Household Members Other:: SPOUSE OF 20 YEARS Housing: Apartment Housing Other:: IN [place] Do you presently have visiting nurse or other home services: No Alcohol intake: former Patient Tobacco Use Status: Never used Tobacco Smoked in Last 30 Days: No e-Cigarette/Vaping Use: Never Used Second Hand Smoke Exposure: No Use of substances other than those prescribed or required for medical reasons: No Advance Directives: Yes Advance Directives on File: Yes Advance Directives Date on File: 03/16/25 service: No Current occupational status: employed 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 Sexual orientation: Straight/Heterosexual Cognitive needs: No Hearing needs: No Vision needs: No Physical Exam ED Vital Signs: Vital Signs - 24 hr 03/28/25 20:56 03/28/25 21:48 03/29/25 00:24 Temperature 97.4 F 97.5 F Pulse Rate 83 68 63 Respiratory Rate 20 17 12 Blood Pressure 130/84 128/59 L 104/54 L Pulse Oximetry 99 97 97 Oxygen Delivery Method Room Air Room Air Room Air 03/29/25 02:44 03/29/25 05:27 03/29/25 12:27 Temperature 97.8 F 97.1 F 97.2 F Pulse Rate 61 68 82 Respiratory Rate 16 16 18 Blood Pressure 103/64 101/32 L 99/52 L Pulse Oximetry 96 97 99 Oxygen Delivery Method Room Air Room Air Room Air BMI result Body Mass Index 24.6 Const Other: Alert well-appearing Orientation/consciousness: oriented to person and oriented to place Resp Effort & Inspection: normal respiratory effort Cardio Other: Normal peripheral perfusion Skin Other: Warm dry no rash Neuro Other: Patient can not recall the exact month but knows what year it is, answering questions appropriately General: oriented to person, oriented to place, gait normal, no focal motor deficits and CN's II-XI intact bilaterally Psych Other: Cooperative in the emergency room Course Reevaluation(s) Reevaluation #1: Regina from case management was already aware that the patient had arrived to the emergency room. The patient was recently seen for similar presentation, after she had eloped from the home. She was hospitalized, had psychiatric consult, there were multiple safety measures that were supposed to have been implemented, to keep her safe at home. It appears she still is not safe at home. The plan is to hold her for further case management and social work, elder Services we will be contacted tomorrow. Additional psychiatric consult for medication purposes will be placed. The arrived shortly after, and was part of the bedside conversation, he is in agreement with the plan. Reevaluation #2: Time: 03:04 Date: 03/29/25 Provider: THEODORE Caruso Patient in physician observation for case management needs. No acute events reported overnight.? No current issues or complaints. VS stable. Patient is pending placement at facility/pending PT/CM eval. Will continue to monitor. Reevaluation #3: Time: 08:15 Date: 03/29/25 Provider: Wendy Abdul PA-C I have received care of this patient via ED case management. She is in physician observation for case management needs. No acute events reported overnight.? No current issues or complaints. VS stable. Patient is pending elder services/ social work/PT/CM eval- not safe at home. Will continue to monitor. 1128: CM- patient does not need PT, quite ambulatory no imbalance issues. Psych consult pending for med recommendations, med rec done, will order EKG as her last lexapro dose unknown and last EKG here was on 03/08 QTc is 407 ms. If not prolonged will give lexapro today. QTc 408 ms, will order lexapro for today. No overt evidence of STEMI. No evidence of Brugada's sign, delta wave, epsilon wave, significantly prolonged QTc, or malignant arrhythmia, 70 bpm. 1540: Psycho consult done. They recommended risperodone 0.25 mg qhs. Will be seeing new psychiatrist at [facility] next week will defer to that person for terminal gauger supervisor plans. [employer] Officer [place] ward about wander guard in place consideration. Order for risperidone qhs placed for one week in system scheduled. ----- Time: 17:56 Date: 03/29/25 Provider: Wendy Abdul PA-C Physician observation ended at 1800. Patient has been cleared for discharge by the CARE team. Will follow up as an outpatient. Additional Reevaluation(s): 550 pm speaking with Regina from case management, the patient is going to be discharged home. There was extensive conversation with the patient's daughter and spouse, they are aware that the family can not leave her alone in the home. There was a referral to [facility], for adult daycare. The [place] police Department was made aware of the situation, she is pending a wander guard. I was asked to send a prescription for Risperidone. Medications Administered Discontinued Medications Generic Name Dose Route Start Last Admin Trade Name Freq PRN Reason Stop Dose Admin Escitalopram Oxalate 10 mg 03/29/25 12:41 03/29/25 13:44 Escitalopram Oxalate 10 Mg Tablet PO 03/29/25 12:42 10 mg ONCE ONE Administration Medical Decision Making Medical Decision Making MDM Narrative: 68-year-old female with a history of Alzheimer's dementia, prior alcohol use disorder, TBI, presents to the emergency department after she had eloped from home. Patient told EMS that she ?has been walking around all day because her was being impossible?. She further states ?he is giving me a hard time because of my memory?. The patient has no physical concerns or complaints at this time. Problem: Dementia History: Per EMS and the I have considered the following differential diagnoses: Delirium, intoxication, UTI, progression of dementia Plan: Regina from case management was already aware that the patient had arrived to the emergency room. The patient was recently seen for similar presentation, after she had eloped from the home. She was hospitalized, had psychiatric consult, there were multiple safety measures that were supposed to have been implemented, to keep her safe at home. It appears she still is not safe at home. The plan is to hold her for further case management and social work, elder Services we will be contacted tomorrow. Additional psychiatric consult for medication purposes will be placed. The arrived shortly after, and was part of the bedside conversation, he is in agreement with the plan. We will screen basic labs, serum ethanol and UA, we will place psych consult and case management/social work. I have independently reviewed the following tests: Labs: No leukocytosis, not anemic, no electrolyte abnormality, ethanol less than 10, urine pending Differential Diagnosis Differential Diagnoses: The differential diagnosis associated with the presentation includes See medical decision-making Admission/Observation Consideration of admission/observation: Escalation of care including admission/observation considered Case management, psychiatric consult Consult Healthcare Provider Management of the patient was discussed with: Industrial Organizational Psychologist and Behavioral Health Provider Case management and psychiatric consult Lab Data MDM Lab Attestation statement: I reviewed the patient's lab results. 03/28/25 21:55 03/28/25 21:55 Labs: Lab Results 03/28/25 03/29/25 Range/Units 21:55 13:01 WBC 9.5 (4.8-10.8) X10*3/uL RBC 4.60 (4.20-5.50) X10*6/uL Hgb 13.6 (12.0-16.0) g/dl Hct 41.4 (37.0-47.0) % MCV 90.0 (80.0-98.0) fL MCH 29.6 (27.0-33.0) pg MCHC 32.9 (31.0-35.0) g/dl RDW 13.9 (11.0-16.0) % Plt Count 329 D (160-400) X10*3/uL MPV 9.6 (9.4-12.3) fL Immature Gran % (Auto) 0.2 (0.0-0.4) % Neut % (Auto) 73.2 H (45-73) % Lymph % (Auto) 18.0 L (20-40) % Prentiss % (Auto) 7.4 (2-11) % Eos % (Auto) 0.6 (0-4) % Baso % (Auto) 0.6 (0-2) % Lymph # (Auto) 1.7 (1.2-4.9) X10*3/uL Prentiss # (Auto) 0.7 (0.1-1.2) X10*3/uL Eos # (Auto) 0.1 (0.0-0.4) X10*3/uL Baso # (Auto) 0.1 (0.0-0.2) X10*3/uL Abs Immat Gran (auto) 0.02 (0.00-0.03) X10*3/uL Absolute Neuts (auto) 6.9 (2.0-8.3) x10*3/uL Absolute Nucleated RBC 0.000 (0.0-0.012) X10*3/uL Nucleated RBC % (auto) 0.0 (0.0-0.2) /100WBC Sodium 141 (135-145) mmol/L Potassium 3.6 (3.3-5.1) mmol/L Chloride 103 (96-108) mmol/L Carbon Dioxide 26 (22-29) mmol/L Anion Gap 16 (12-20) BUN 13 (9-16) mg/dL Creatinine 0.91 (0.5-1.4) mg/dL Estim Creat Clear Calc 49.5 Estimated GFR > 60 Random Glucose 92 (60-115) mg/dL Calcium 9.9 (8.4-10.2) mg/dL Magnesium 2.3 (1.6-2.6) mg/dL Total Bilirubin 0.4 (0.0-1.0) mg/dL AST 39 H (5-31) U/L ALT 21 (0-31) U/L Alkaline Phosphatase 47 (39-117) U/L Total Protein 7.5 (6.5-8.0) g/dL Albumin 4.8 (3.5-5.0) g/dL Urine Color Yellow Urine Appearance Clear Urine pH 6.0 (5.0-9.0) Ur Specific Hubbard 1.010 (1.005-1.025) Urine Protein Negative (Neg-Trace) mg/dL Urine Glucose (UA) Negative (Negative) mg/dL Urine Ketones Negative (Negative) mg/dL Urine Blood Negative (Negative) Urine Nitrite Negative (Negative) Ur Leukocyte Esterase Trace H (Negative) Urine RBC 0-2 (0-2) /HPF Urine WBC 0-5 (0-5) /HPF Ur Squamous Epith Cells 0-2 (0-2) /HPF Urine Bacteria None Seen (None Seen) Hyaline Casts 0-2 (0-2) /LPF Ethyl Alcohol < 10 mg/dL Discharge Plan Discharge Clinical Impression: At high risk for elopement, Dementia Patient Disposition: Home, Self-Care Additional Instructions: There is a referral placed for adult daycare through [facility] services, this is pending. The [place] police Department was made aware of the situation, given the need for the patient to have a wander guard. Continue to follow up with your primary care provider. The patient should take the risperidone as directed at bedtime. Prescriptions: New risperidone 0.25 mg tablet 0.25 mg PO BEDTIME Qty: 30 0RF No Action multivitamin Tablet 1 tab PO DAILY donepezil 10 mg tablet 10 mg PO BEDTIME Qty: 90 6RF escitalopram oxalate 10 mg tablet 10 mg PO DAILY Qty: 30 6RF Referrals: Az Verduzco MD [Primary Care Provider, Internal Medicine] Print Language: French
[2025-03-29 05:27] VITALS: BP 101/32; PULSE 68; RESP 16; TEMP 36.2; O2SAT 97
--- NOTE | 2025-03-29 11:27 | ECG_ITS ---
Test Reason : CHECK QTC Blood Pressure : */* mmHG Vent. Rate : 70 BPM Atrial Rate : 70 BPM P-R Int : 152 ms QRS Dur : 90 ms QT Int : 378 ms P-R-T Axes : 79 52 57 degrees QTcB Int : 408 ms Normal sinus rhythm Normal ECG When compared with ECG of 08-Mar-2025 02:25, No significant change was found Referred By: Wendy Abdul Electronically Signed By: UNA PIEDRA MD
[2025-03-29 12:27] VITALS: BP 99/52; PULSE 82; RESP 18; TEMP 36.2; O2SAT 99
[2025-03-29 13:07] LABS: Appearance Urine Clear; Glucose Urine UA Negative (Negative); PH 6.0 (5.0-9.0); Specific Gravity - Urine 1.010 (1.005-1.025); UMIC TRIGGER UACC YES
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
--- NOTE | 2025-03-29 14:21 | MHC.CM.ED ---
Addendum entered by Anabel Hernandez 03/29/25 14:21: Copy of HCP obtained from PCP's office. Sonal is 1st HCP. Original Note: Patient remains in ER overflow. Psych consult is pending. Continue to monitor for d/c needs.
[2025-03-29 16:00] VITALS: BP 135/63; PULSE 66; RESP 16; TEMP 36.6; O2SAT 99
[2025-03-29 18:08] VITALS: BP 135/65; PULSE 66; RESP 16; TEMP 36.6; O2SAT 99
== END 2025-03-29 18:25 | disposition home or self-care (01) ==
PROVIDERS: Physician Assistant Medical; Emergency Provider Emergency Medicine; PCP Internal Medicine
DX: G30.9 Alzheimer's disease, unspecified (principal); F02.80 Dementia in other diseases classified elsewhere, unspecified severity, without behavioral disturbance, psychotic disturbance, mood disturbance, and anxiety; Z79.899 Other long term (current) drug therapy; Z11.52 Encounter for screening for COVID-19; Z51.81 Encounter for therapeutic drug level monitoring; Z87.820 Personal history of traumatic brain injury
CPT/HCPCS: 36415; 80053; 80307; 81001; 83735; 85025; 93005; 99285

== ENCOUNTER → 2025-03-28 21:46 | Outpatient (BNV) | payer MEDICARE, SELFPAY | PROVIDERS: Emergency Provider Emergency Medicine; PCP Internal Medicine; Visit Provider Psychiatry & Neurology Psychiatry | DX: F03.90 Unspecified dementia, unspecified severity, without behavioral disturbance, psychotic disturbance, mood disturbance, and anxiety (principal); F10.11 Alcohol abuse, in remission | CPT/HCPCS: 99284 ==

== ENCOUNTER → 2025-03-29 11:27 | Outpatient (BNV) | payer MEDICARE, SELFPAY | PROVIDERS: Emergency Provider Emergency Medicine; PCP Internal Medicine; Visit Provider Internal Medicine Cardiovascular Disease | DX: Z13.6 Encounter for screening for cardiovascular disorders (principal) | CPT/HCPCS: 93010 ==

== ENCOUNTER 2025-03-31 01:30 | Emergency (ER) | payer MEDICARE, SELFPAY ==
[2025-03-31 01:34] VITALS: BP 110/59; BP 114/60; PULSE 75; PULSE 77; RESP 16; TEMP 36.8; O2SAT 96; BMI 22.9
--- NOTE | 2025-03-31 01:46 | PC.NURSE ---
pt BIBA from home, pt calm and cooperative in the ED during triage, changed over into hospital attire, ambulated w/ steady gait, A+Ox4 (can verbalize relatively situation that brought her to ED), provider Mercedes Perez at the bedside doing assessment
--- OUTSIDE RECORDS SUMMARY | 2025-03-31 01:53 | XMS_ITS | Patient Health Record ---
Author Organization [facility] Address [address] [place] [address] Care Team Providers Care Chief Building Inspector Name Role Phone Mike Cobos Unavailable [phone] Reason For Referral No Information Plan Of Treatment No Information
[2025-03-31 02:00] LABS: MANUAL DIFF FLAG NO
[2025-03-31 02:01] LABS: Hematocrit 36.4 % (37.0-47.0); Hemoglobin 12.3 g/dl (12.0-16.0); Imm Gran Pct Auto 0.2 % (0.0-0.4); Mean Corpuscular HGB Conc 33.8 g/dl (31.0-35.0); Mean Corpuscular Hemoglobin 29.9 pg (27.0-33.0); Mean Corpuscular Volume 88.6 fL (80.0-98.0); Platelet Count 291 X10*3/uL (160-400); Red Blood Count 4.11 X10*6/uL (4.20-5.50); White Blood Count 6.0 X10*3/uL (4.8-10.8)
[2025-03-31 02:02] LABS: Imm Gran Abs Auto 0.01 X10*3/uL (0.00-0.03); Lymphocytes Absolute Auto 1.4 X10*3/uL (1.2-4.9); NRBC Abs Auto 0.000 X10*3/uL (0.0-0.012); NRBC Pct Auto 0.0 /100WBC (0.0-0.2)
[2025-03-31 02:16] LABS: Alanine Aminotransferase 24 U/L (0-31); Albumin Level 4.5 g/dL (3.5-5.0); Alkaline Phosphatase 46 U/L (39-117); Anion Gap 14 (12-20); Aspartate Amino Transferase 38 U/L (5-31); Blood Urea Nitrogen 16 mg/dL (9-16); Calcium 9.7 mg/dL (8.4-10.2); Carbon Dioxide 26 mmol/L (22-29); Chloride 105 mmol/L (96-108); Creatinine Clr Calc Pharmacy 44.5; Estimated Glomerular Filt Rate > 60; Potassium 3.5 mmol/L (3.3-5.1); Sodium 141 mmol/L (135-145); Total Protein 7.0 g/dL (6.5-8.0)
[2025-03-31 02:18] LABS: Acetaminophen LAB < 3 mcg/mL (<30); Salicylate < 5.0 mg/dL (15-30)
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
--- NOTE | 2025-03-31 02:32 | MHC.EDTECH ---
Patient ambulated to the bathroom with minimal assistance, has a steady gait. Urine sample has been obtained and sent to lab.
[2025-03-31 02:38] LABS: Appearance Urine Clear; Glucose Urine UA Negative (Negative); PH 6.0 (5.0-9.0); Specific Gravity - Urine <= 1.005 (1.005-1.025)
[2025-03-31 02:52] LABS: Cannabinoid Screen Urine Not Detected (Not Detect)
[2025-03-31 04:37] VITALS: BP 92/63; PULSE 64; RESP 18; O2SAT 96
--- NOTE | 2025-03-31 04:45 | PC.NURSE ---
pt noted to be laying on her right side, lights dimmed, w/ blanket, eyes closed, respirations even and unlabored
[2025-03-31 06:00] VITALS: RESP 18
--- NOTE | 2025-03-31 06:17 | PC.NURSE ---
pt noted to be laying on right side, covered in blanket, eyes closed, lights dimmed, pt respirations even and unlabored, call light within reach for safety
[2025-03-31 08:28] VITALS: BP 132/69; PULSE 75; RESP 16; TEMP 36.7; O2SAT 97
--- NOTE | 2025-03-31 09:30 | PC.NURSE ---
Pt up oob, ambulatory around room/hallway. Pt noted to self remove hospital gown and change into personal belongings. Pt changed over into hospital gown- belongings locked in [place] port d/t risk of wandering. IV line removed from R forearm d/t no longer needed. Pt able to be redirected back to room, sitting upright eating breakfast tray. Call meyer within reach, all needs met at this time.
--- NOTE | 2025-03-31 10:00 | PHA.MEDREC ---
Pharmacy Consult ? Medication Reconciliation Pharmacy has reviewed the medication reconciliation completed by nursing.
--- NOTE | 2025-03-31 12:10 | MHC.CM.PN ---
CM SPOKE WITH DAUGHTER /HCP ARIAN VIA TELEPHONE. PT'S DAUGHTER WILL BE WITH HER IN THE MORNING AND WILL NO LONGER BE WORKING IN AFTERNOON TO PROVIDE 24/7 COVERAGE TO MONITOR PT. PER DAUGHTER, DOORS ARE ALARMED AND PT IS BEING SUPERVISED. PT WILL SEE OP CLINICIAN ON TUESDAY 04/[address] [facility] AND PER DAUGHTER, THE FAMILY IS WORKING WITH [employer] FOR LT PLAN. PROVIDER UPDATED AND PER DAUGHTER, SHE WILL BE IN LATER THIS AFTERNOON TO BRING MOTHER HOME. CM WILL CONTINUE TO FOLLOW FOR ANY CHANGE TO DC PLAN.
[2025-03-31 18:46] VITALS: BP 141/63; PULSE 72; RESP 16; TEMP 36.4; O2SAT 96
--- NOTE | 2025-04-02 16:11 | MHC.CM.ED ---
CM called and left messages with [facility] elder director of field service, Jorge Luis Echevarria on 03/30 and 04/02 regarding information on a wanderguard for this patient. No return call. CM called can spoke to D regarding inability to reach Officer Yamilka. Gave CM an email address-[employer]. Attempted to email Officer Yamilka. Email not valid. CM called and left another message for Officer Yamilka. CM reviewed Officer Yamilka's business card. New email address [email or web address] Will try to email him again
--- NOTE | 2025-04-03 20:50 | MHC.CM.ED ---
Addendum entered by Nancy Hsu 04/04/25 16:59: Pt arrived to ED to visit with CM, not as a patient. She arrived with her . She tells CM she and her daughter met with nigel baeza. States no medication changes and she liked the provider. She has another follow up appointment. , Andrew, apologized for missing CM call yesterday. JAYA explained that Katie does not yet have the wanderguard , but the [facility] department has project lifesaver. Gave contact information for Lt. Mcdonald ([phone]). Andrew tells CM he will make the call. Andrew explained that he is still waiting for Garret from [facility]. CM received notification that her case was screened in. They have not heard about adult day care. CM will call Garret at [facility] tomorrow, as they are now closed. Will place an additional referral to [facility] about adult day care. Addendum entered by Nancy Hsu 04/03/25 20:52: Lt Mcdonald returned call. Tells CM that they have Project Lifesaver . He requested that patient's call him. CM called , Andrew at 7 pm and left a message for a return call to discuss the wanderguard . Awaiting return call. Original Note: CM received telephone call back from Officer Wale. Katie is in process of obtaining a wanderguard but does not have it yet. Suggested CM call Lt. Mcdonald at the [facility] department for assistance ([phone]). JAYA called and left a message with Lt Mcdonald.
== END 2025-03-31 19:06 | disposition home or self-care (01) ==
PROVIDERS: Emergency Provider Emergency Medicine; PCP Internal Medicine
DX: G30.9 Alzheimer's disease, unspecified (principal); F02.80 Dementia in other diseases classified elsewhere, unspecified severity, without behavioral disturbance, psychotic disturbance, mood disturbance, and anxiety; R44.2 Other hallucinations
CPT/HCPCS: 36415; 80053; 80143; 80179; 80307; 81001; 85025; 99283; 99284

== ENCOUNTER 2025-04-05 02:32 | Emergency (ER) | payer MEDICARE, SELFPAY ==
[2025-04-05 02:46] VITALS: BP 129/60; PULSE 61; RESP 20; TEMP 36.3; O2SAT 98; BMI 21.5
--- NOTE | 2025-04-05 03:23 | PC.NURSE ---
vascular technologist sonographer to WR to find the pt sitting alone/by herself in the waiting room with her belongings, not in sight. She states he has to get up early and left home. vascular technologist sonographer attempted to call the but there was no answer.
--- OUTSIDE RECORDS SUMMARY | 2025-04-05 03:44 | XMS_ITS | Patient Health Record ---
Author Organization [facility] Address [address] [place] [address] Care Team Providers Care Health Outreach Worker Name Role Phone Mike Cobos Unavailable [phone] Reason For Referral No Information Plan Of Treatment No Information
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
--- NOTE | 2025-04-05 07:38 | PC.NURSE ---
This RN assumed care of patient Patient sitting in bed, awake No behaviors noted at this time Denies pain Provider in to see patient Plan of care on going
[2025-04-05 07:47] VITALS: BP 129/52; PULSE 71; RESP 18; TEMP 36.6; O2SAT 98
[2025-04-05 08:01] LABS: MANUAL DIFF FLAG NO
[2025-04-05 08:11] LABS: Hematocrit 37.8 % (37.0-47.0); Hemoglobin 12.4 g/dl (12.0-16.0); Imm Gran Abs Auto 0.01 X10*3/uL (0.00-0.03); Imm Gran Pct Auto 0.2 % (0.0-0.4); Lymphocytes Absolute Auto 1.6 X10*3/uL (1.2-4.9); Mean Corpuscular HGB Conc 32.8 g/dl (31.0-35.0); Mean Corpuscular Hemoglobin 30.1 pg (27.0-33.0); Mean Corpuscular Volume 91.7 fL (80.0-98.0); NRBC Abs Auto 0.000 X10*3/uL (0.0-0.012); NRBC Pct Auto 0.0 /100WBC (0.0-0.2); Platelet Count 317 X10*3/uL (160-400); Red Blood Count 4.12 X10*6/uL (4.20-5.50); White Blood Count 5.1 X10*3/uL (4.8-10.8)
[2025-04-05 08:12] LABS: Appearance Urine Clear; Glucose Urine UA Negative (Negative); PH 6.5 (5.0-9.0); Specific Gravity - Urine 1.010 (1.005-1.025)
[2025-04-05 08:20] LABS: Cannabinoid Screen Urine Not Detected (Not Detect)
[2025-04-05 08:25] LABS: Alanine Aminotransferase 22 U/L (0-31); Albumin Level 4.2 g/dL (3.5-5.0); Alkaline Phosphatase 45 U/L (39-117); Anion Gap 13 (12-20); Aspartate Amino Transferase 32 U/L (5-31); Blood Urea Nitrogen 12 mg/dL (9-16); Calcium 9.3 mg/dL (8.4-10.2); Carbon Dioxide 26 mmol/L (22-29); Chloride 108 mmol/L (96-108); Creatinine Clr Calc Pharmacy 58.9; Estimated Glomerular Filt Rate > 60; Potassium 3.8 mmol/L (3.3-5.1); Sodium 143 mmol/L (135-145); Total Protein 6.8 g/dL (6.5-8.0)
--- NOTE | 2025-04-05 08:56 | MHC.CM.ED ---
Received case management consult overnight. Patient was brought to the ER by her , Andrew, due to patient attempting to elope from the home. Patient has advanced dementia. Work up essentially negative. Attempted to speak with Andrew via telephone at [phone] and [phone]. Left voicemail requesting return telephone call. Attempted to speak with daughter, Sonal via telephone at [phone]. Left voicemail requesting return telephone call. Continue to monitor for d/c needs.
--- NOTE | 2025-04-05 10:00 | MHC.CM.ED ---
Patient's Andrew on-site. Patient became agitated and stated she would not return home with this man . Patient states she doesn't trust him and she won't go home with him. Patient denies that her daughter, Sonal, stays with her in the morning and stated she's a very busy woman. Patient has advanced dementia. Patient has been to the ER frequently due to eloping from home at night. Patient has a neurologist and saw a psych provider on Wednesday. No med changes were made at that time. Andrew is concerned about owning and dementia behaviors. Psych consult for medication recommendations made by Christiane JAIMES at this time. Continue to monitor for d/c needs.
--- NOTE | 2025-04-05 10:17 | PC.NURSE ---
Patient was noted to be walking around ED looking to go home Charge nurse escorted patient back to her room Charge nurse set up camera monitor in patients room Camera is on and functioning at this time
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
[2025-04-05 15:16] VITALS: BP 144/69; PULSE 69; RESP 18; TEMP 36.6; O2SAT 100
[2025-04-05 17:46] VITALS: BP 122/64; PULSE 64; RESP 15; TEMP 36.5; O2SAT 98
--- NOTE | 2025-04-05 18:07 | MHC.CM.ED ---
Psych consult-no IPLOC. Made med recommendations. Pt will stay overnight and discharge in the morning. Provider, patient and aware. Pt is happy to go home with . Pt speaking with on the telephone.
--- NOTE | 2025-04-05 19:29 | PC.NURSE ---
RN took over care for this pt at 1900; pt then went to overflow at 1930. RN called and gave report to overflow RN. Pt in route with tech and security.
[2025-04-05 19:51] VITALS: BP 159/95; PULSE 69; RESP 16; TEMP 36.6; O2SAT 99
[2025-04-06 06:05] VITALS: BP 95/50; PULSE 58; RESP 16; TEMP 36.9; O2SAT 98
--- NOTE | 2025-04-06 09:50 | PHA.MEDREC ---
Addendum entered by Janet Smith 04/06/25 10:36: came to pharmacy and he was able to confirm patient medications. No change to med rec needed. Addendum entered by Jossie Aggarwal RP 04/06/25 09:54: [facility] reviewed Original Note: Pharmacy Consult ? Medication Reconciliation Pharmacy has completed the medication reconciliation. Patient is a poor historian due to dementia. Called and left message for patient Andrew. Utilized last discharge notes and claims to confirm med list. Will update if Spouse calls back with any changes.
--- NOTE | 2025-04-06 10:34 | PC.NURSE ---
This Charge nurse DC elopement band d/t DC in place
[2025-04-06 10:35] VITALS: BP 95/50; PULSE 58; RESP 16; TEMP 36.9; O2SAT 98
--- NOTE | 2025-04-06 10:58 | MHC.CM.PN ---
CM MET WITH PT AND AT BEDSIDE PT APPEARS PLEASANT AND NOTES SHE WANTS TO GO HOME CM DISCUSSED POTENTIAL SAFETY GUARDS FOR HOME TO REDUCE RISK OF PT EXIT SEEKING PT STATES SHE JUST WANTS TO GO FOR A WALK HER REPORTS HE HAS AN ALARM ON THE DOORS THAT WILL WAKE HIM IF SHE TRIES TO EXIT AT NIGHT HE IS ALSO GETTING A BRACELET WITH A GPS ON IT FOR HER REFERRAL MADE TO ACP TO ASSIST WITH GETTING PT INTO A DAY PROGRAM REPORTS THEY ARE ANXIOUS TO GET HOME FOR THE GRAND KIDS HALLOWEEN HE WILL PROVIDE TRANSPORT
== END 2025-04-06 11:00 | disposition home or self-care (01) ==
PROVIDERS: Emergency Provider Emergency Medicine; PCP Psychiatry & Neurology Neurology
DX: G30.1 Alzheimer's disease with late onset (principal); F02.80 Dementia in other diseases classified elsewhere, unspecified severity, without behavioral disturbance, psychotic disturbance, mood disturbance, and anxiety; Z79.899 Other long term (current) drug therapy
CPT/HCPCS: 36415; 80048; 80076; 80307; 81003; 85025; 99284

== ENCOUNTER → 2025-04-05 03:38 | Outpatient (BNV) | payer MEDICARE, SELFPAY | PROVIDERS: Emergency Provider Emergency Medicine; PCP Psychiatry & Neurology Neurology; Visit Provider Nurse Practitioner Family | DX: G30.1 Alzheimer's disease with late onset (principal); F02.80 Dementia in other diseases classified elsewhere, unspecified severity, without behavioral disturbance, psychotic disturbance, mood disturbance, and anxiety | CPT/HCPCS: 99283 ==

== ENCOUNTER 2025-04-09 15:12 | Emergency (ER) | payer MEDICARE, SELFPAY ==
[2025-04-09 15:17] VITALS: BP 101/56; PULSE 77; RESP 16; TEMP 36.7; O2SAT 97; BMI 21.7
--- NOTE | 2025-04-09 16:01 | MHC.EDTECH ---
Patient has two yellow rings on left hand. Patient asked to keep rings. Okay per RN.
[2025-04-09 16:11] LABS: Appearance Urine Clear; Glucose Urine UA Negative (Negative); PH 7.0 (5.0-9.0); Specific Gravity - Urine 1.010 (1.005-1.025)
[2025-04-09 16:18] LABS: Cannabinoid Screen Urine Not Detected (Not Detect)
--- NOTE | 2025-04-09 17:10 | ED_ITS ---
HPI - General Adult General Chief complaint: Altered Mental Status Stated complaint: confusion Time Seen by Provider: 04/09/25 16:03 Source: patient, RN notes reviewed and old records reviewed Mode of arrival: ambulatory Limitations: other (History of dementia, very poor historian) History of Present Illness ED Provider: Elsa HPI narrative: 68-year-old female with a past medical history significant for Alzheimer's dementia, history of alcohol abuse presents for evaluation of ?I do not feel safe at home. ? This is the patient's 5th visit in the last month for various complaints or concerns of safety. She has a history of wandering from her house where she lives with her . The patient was found in the main lobby by case management staff and was brought to the ER as she was confused. The patient reports that her yelled at her and she got scared so she ran out of the house. She reports that she got on a bus to come to the hospital. She reports that she got off the bus a little bit too soon and I had to walk the last part of the trip. She has ?moris abreu in her hair. She reports that she fell into the bushes. She denies any injury She is alert and oriented to person and place only She believes it is November or December of 2024 Related Data Home Medications ?Medication ?Instructions ?Recorded ?Confirmed multivitamin 1 tab PO DAILY 02/22/2508/29 risperidone 0.25 mg tablet 0.25 mg PO DAILY PRN Agitat ion 04/06/25 04/09/25 melatonin 10 mg tablet 10 mg PO BEDTIME 04/09/25 risperidone 0.25 mg tablet 0.25 mg PO DAILY 04/09/25 1 06/09/24 risperidone 0.5 mg tablet 0.5 mg PO BEDTIME 04/09/25 1 06/09/24 Previous Rx's ?Medication ?Instructions ?Recorded donepezil 10 mg tablet 10 mg PO BEDTIME #90 tabs escitalopram oxalate 10 mg tablet 10 mg PO DAILY #30 t abs 04/11/25 Allergies Allergy/AdvReac Type Severity Reaction Status Date / Time clonazepam Allergy Unknown amnesia, Verified 04/09/25 15:18 suicidal thoughts lorazepam Allergy Unknown unknown Verified 04/09/25 15:18 sertraline (Zoloft) AdvReac Unknown unknown Verified 04/09/25 15:18 From WELLBUTRIN Allergy Unknown PATIENT Uncoded 04/05/25 02:51 BECOMES INSANE From ZOLOFT Allergy Unknown PT BECOMES Uncoded 04/05/25 02:51 INSANE Wellbutrin Allergy Unknown unknown Uncoded 04/05/25 02:51 ambien AdvReac Unknown night Uncoded 04/05/25 02:51 mare, suicidal thoughts Review of Systems 2 Constitutional: Constitutional: Denies chills, Denies fever(s) and Denies headache(s) Eyes: Eyes: Denies blurry vision ENT: Denies dizziness and Denies headache(s) Cardiovascular: Cardiovascular: Denies chest pain, Denies chest pain at rest and Denies dyspnea on exertion Respiratory: Respiratory: Denies cough and Denies dyspnea on exertion Gastrointestinal: Gastrointestinal: Denies abdominal pain, Denies nausea and Denies vomiting Musculoskeletal: Musculoskeletal: Denies back pain Integumentary/Breasts: Skin/Breast: Denies rash Neurologic: Reports behavioral changes, Reports confusion, Denies dizziness, Denies headache(s) and Reports memory loss Psychiatric: Psychiatric: Denies anxiety, Reports behavioral changes, Reports confusion, Reports memory loss, Reports paranoia, Reports visual hallucinations, Denies homicidal ideation and Denies suicidal ideation [facility] Past Medical History Medical History Cognitive disorder Meningioma Cognitive disorder Major depressive disorder Subdural bleeding Cataract Alcoholism Surgical History Hx of section Family History Family History Brother Cancer Social History Social History Household Members: Spouse Household Members Other:: SPOUSE OF 20 YEARS Housing: Apartment Housing Other:: IN PALL MALL Do you presently have visiting nurse or other home services: No Alcohol intake: current Alcohol intake frequency: holidays/special occasions only Alcohol type: wine Patient Tobacco Use Status: Never used Tobacco e-Cigarette/Vaping Use: Never Used Second Hand Smoke Exposure: No Advance Directives Date on File: 03/14/25 service: No Current occupational status: employed 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 Sexual orientation: Straight/Heterosexual Cognitive needs: No Hearing needs: No Vision needs: No Physical Exam ED Vital Signs: Vital Signs - 24 hr 04/12/25 08:28 04/12/25 12:02 Temperature 98.2 F 98.0 F Pulse Rate 73 70 Respiratory Rate 18 Blood Pressure 91/44 L 98/54 L Pulse Oximetry 99 99 Oxygen Delivery Method Room Air Room Air BMI result Body Mass Index 21.7 Const General: confusion Nutritional Appearance: well nourished Orientation/consciousness: confusion HENMT Head: Yes normocephalic and Yes atraumatic Throat: Yes posterior oropharynx normal Eyes Eyelids: Yes eyelids normal Conjunctivae: conjunctivae normal Sclerae: sclerae normal Corneas: corneas normal Pupils: Equal, round and reactive pupils present EOM: EOMs intact bilaterally Neck Neck: Yes full ROM Resp Effort & Inspection: normal respiratory effort, able to speak in complete sentences and not labored Cardio Rate: regular rate Rhythm: regular rhythm GI Inspection: No distended Palpation (GI): Soft to palpation, not firm, nontender, no guarding and not rigid Skin General skin exam: elasticity normal Neuro General: confusion Cranial nerves: Yes Equal, round and reactive pupils present and Yes Bilaterally intact EOM present Extrem Other: Moving all extremities well without any obvious deformities Psych Appearance: disheveled Speech and movement: Normal speech and movement present Affect: normal affect Attitude: cooperative Thought process: Illogical thought process present Thought content: Phobia(s) present Insight: Poor insight present (Psych) Course Course Course Narrative: Time: 05:44 Date: 04/10/25 Provider: Kandi Sanchez, DO Patient in physician observation for PT/CM? No acute events reported overnight. No current complaints. VS stable.? Pending PT/CM. Will continue to monitor. 8:36 AM 04/12/2025 (Caridad Sosa NP): Physician observation continued, no overnight events reported by nursing. Wood Little from patient has been cleared by psych and will likely dc home. BP noted to be somewhat hypotensive, upon review of EMR, appears this is somewhat baseline for her. She is asymptomatic. 11:59 AM 04/12/2025 (Caridad Sosa NP): Wood Little from , is coming to pick patient up now. Observation care revealed that patient does not meet medical necessity for hospitalization. Final disposition discussed with patient. The patient completed observation care at 1200pm on 04/12/25. Medications Administered Discontinued Medications Generic Name Dose Route Start Last Admin Trade Name Sara VANEGAS Reason Stop Dose Admin Donepezil HCl 10 mg 04/09/25 21:00 04/11/25 21:20 Donepezil Hcl 10 Mg Tablet PO 10 mg BEDTIME SUNITA Administration Escitalopram Oxalate 10 mg 04/10/25 09:00 04/12/25 08:26 Escitalopram Oxalate 10 Mg Tablet PO 10 mg DAILY SUNITA Administration Melatonin 9 mg 04/10/25 21:00 04/11/25 21:20 Melatonin 3 Mg Tablet PO 9 mg BEDTIME SUNITA Administration Multivitamins/Vitamin C 1 tab 04/10/25 09:00 04/12/25 08:26 Multivitamin Tablet PO 1 tab DAILY SUNITA Administration Risperidone 0.25 mg 04/10/25 09:00 04/12/25 08:26 Risperidone 0.25 Mg Tablet PO 0.25 mg DAILY SUNITA Administration Risperidone 0.5 mg 04/09/25 21:30 04/11/25 21:20 Risperidone 0.5 Mg Tablet PO 0.5 mg BEDTIME SUNITA Administration Medical Decision Making Medical Decision Making MDM Narrative: 68-year-old female presents for evaluation of confusion and not feeling safe at home. This patient is well-known to our case management department who has been trying to find a safe disposition for the patient. The patient does have an ankle monitor for location only. This was applied by the [place] police department. The patient offers no somatic complaints. She would have a CT scan a month ago for confusion which was unremarkable for acute changes. The patient has no objective signs of trauma though she does have some fragments of a abreu on her person. Plan for medical clearance and a case management evaluation. After discussing with case management, it does seem that the patient's was aware that the patient walked out of the house and did not seek to stop her. Knowing that this is a safety risk, a case will be filed with elder Services for neglect. The patient does seem to be at her baseline for her previous as this Differential Diagnosis Differential Diagnoses: The differential diagnosis associated with the presentation includes Dementia Confusion Paranoia Altered mental status Lab Data 04/09/25 20:58 04/09/25 20:58 Labs: Lab Results 11/08/2904/09/25 04/09/25 Range/Units 15:53 15:54 20:58 WBC 6.5 (4.8-10.8) X10*3/uL RBC 3.99 L (4.20-5.50) X10*6/uL Hgb 11.8 L (12.0-16.0) g/dl Hct 36.2 L (37.0-47.0) % MCV 90.7 (80.0-98.0) fL MCH 29.6 (27.0-33.0) pg MCHC 32.6 (31.0-35.0) g/dl RDW 14.0 (11.0-16.0) % Plt Count 296 (160-400) X10*3/uL MPV 9.3 L (9.4-12.3) fL Immature Gran % (Auto) 0.3 (0.0-0.4) % Neut % (Auto) 61.5 (45-73) % Lymph % (Auto) 28.4 (20-40) % [place] % (Auto) 7.8 (2-11) % Eos % (Auto) 1.1 (0-4) % Baso % (Auto) 0.9 (0-2) % Lymph # (Auto) 1.9 (1.2-4.9) X10*3/uL [place] # (Auto) 0.5 (0.1-1.2) X10*3/uL Eos # (Auto) 0.1 (0.0-0.4) X10*3/uL Baso # (Auto) 0.1 (0.0-0.2) X10*3/uL Abs Immat Gran (auto) 0.02 (0.00-0.03) X10*3/uL Absolute Neuts (auto) 4.0 (2.0-8.3) x10*3/uL Absolute Nucleated RBC 0.000 (0.0-0.012) X10*3/uL Nucleated RBC % (auto) 0.0 (0.0-0.2) /100WBC Sodium 142 (135-145) mmol/L Potassium 3.6 (3.3-5.1) mmol/L Chloride 104 (96-108) mmol/L Carbon Dioxide 31 H (22-29) mmol/L Anion Gap 11 L (12-20) BUN 14 (9-16) mg/dL Creatinine 1.00 (0.5-1.4) mg/dL Estim Creat Clear Calc 41.1 Estimated GFR 55 Random Glucose 98 (60-115) mg/dL Calcium 9.6 (8.4-10.2) mg/dL Total Bilirubin 0.3 (0.0-1.0) mg/dL AST 46 H (5-31) U/L ALT 26 (0-31) U/L Alkaline Phosphatase 48 (39-117) U/L Total Protein 6.8 (6.5-8.0) g/dL Albumin 4.4 (3.5-5.0) g/dL Urine Color Yellow Urine Appearance Clear Urine pH 7.0 (5.0-9.0) Ur Specific [place] 1.010 (1.005-1.025) Urine Protein Negative (Neg-Trace) mg/dL Urine Glucose (UA) Negative (Negative) mg/dL Urine Ketones Negative (Negative) mg/dL Urine Blood Negative (Negative) Urine Nitrite Negative (Negative) Ur Leukocyte Esterase Negative (Negative) Urine RBC 0-2 (0-2) /HPF Urine WBC 0-5 (0-5) /HPF Ur Squamous Epith Cells 0-2 (0-2) /HPF Urine Bacteria None Seen (None Seen) Hyaline Casts 0-2 (0-2) /LPF Urine Opiates Screen Not Detected (Not Detect) Ur Buprenorphine Scrn Not Detected (Not Detect) ng/mL Ur Oxycodone Screen Not Detected (Not Detect) ng/mL Urine Methadone Screen Not Detected (Not Detect) ng/mL Urine Fentanyl Screen Not Detected (Not Detect) Ur Barbiturates Screen Not Detected (Not Detect) Ur Phencyclidine Scrn Not Detected (Not Detect) Ur Amphetamines Screen Not Detected (Not Detect) U Benzodiazepines Scrn Not Detected (Not Detect) Urine Cocaine Screen Not Detected (Not Detect) U Marijuana (THC) Screen Not Detected (Not Detect) Ethyl Alcohol < 10 mg/dL Discharge Plan Discharge Clinical Impression: Alzheimer's dementia, Dementia Patient Disposition: Home, Self-Care Instructions: Dementia (ED) Additional Instructions: Follow up with your primary care provider this week. Return to the emergency department with new or concerning symptoms. Prescriptions: No Action escitalopram oxalate 10 mg tablet 10 mg PO DAILY Qty: 30 6RF risperidone 0.25 mg tablet 0.25 mg PO DAILY PRN (Reason: Agitation) risperidone 0.25 mg Tablet 0.25 mg PO DAILY Rx Instructions: to be taken with escitalopram per daughter risperidone 0.5 mg Tablet 0.5 mg PO BEDTIME Rx Instructions: to be taken with donepezil per daughter melatonin 10 mg Tablet 10 mg PO BEDTIME multivitamin Tablet 1 tab PO DAILY donepezil 10 mg tablet 10 mg PO BEDTIME Qty: 90 6RF Discharge Date/Time: 04/12/25 12:09 Print Language: Luxembourgish
--- OUTSIDE RECORDS SUMMARY | 2025-04-09 17:15 | XMS_ITS | Patient Health Record ---
Author Organization [facility] Address [address] [place] [address] Care Team Providers Care Nutrition Services Aide Name Role Phone Mike Cobos Unavailable [phone] Reason For Referral No Information Plan Of Treatment No Information
--- NOTE | 2025-04-09 17:43 | MHC.CM.ED ---
Addendum entered by Nancy Hsu 04/09/25 21:17: CM received telephone call from Izabel-pig conveyor operator [facility] ([phone]). Izabel expressed concerns about patient discharging to home.. CM informed Hope that patient would be staying overnight. No safe discharge plan yet. Requested psych for capacity. Provider aware. Ordered. Andrew has not come into ED yet. CM filed with [facility] for neglect, as let patient leave the home alone and go for a walk . Intake #[id number]. Original Note: CM was in the main lobby. Saw patient alone, with briars and outdoor debris on her clothing. CM escorted patient to the ED. Pt is well known to CM. Pt did know CM. Pt states she cannot go home and she went for a walk. Pt is a poor historian. Pt has dementia. Pt wanders. Pt has been in the ED for confusion and wandering 03/08, 03/28, 04/05 and 04/09. CM called Garret at [facility], message left. Pt has an active case with [facility]. Pt does have a life saver bracelet from the [facility] department. CM called , Andrew. Andrew is aware that patient left the house to go for a walk. Andrew seems very frustrated, as he tells CM he cannot keep her a prisoner in her apartment. CM suggested that if she wants to go for a walk, then he needs to go with her. Pt has no safety awareness. CM requested that /HCP Andrew come into ED tonight so CM and provider can speak with him. CM received a call back from Garret at [facility]. Unfortunately, CM was with another patient. When CM returned telephone call, [facility] was closed. CM will file again. Patient neglect. Andrew is aware that patient needs 24/7 care. Garret left a message requesting that patient remain in the ED tonight,, as [facility] has concerns about this patient at home. Provider aware. Primary RN aware.
[2025-04-09 18:31] VITALS: BP 137/78; PULSE 67; RESP 16; TEMP 36.6; O2SAT 99
--- NOTE | 2025-04-09 19:39 | PC.NURSE ---
Pt awake and alert, ambulating through the pod with even and steady gait. She requested to outreach her daughter Sonal as she reports feeling concerned about her wellbeing. RN provided patient with phone number and assisted with dialing out on patient phone with no answer. Pt inquired as to whether or not there was a call back number that could be provided as the daughter is reported to work late. RN called daughter at number listed in the chart and left a voicemail with the ER's contact information and relaying the pt's request. pt offers no other complaints at this time and is well appearing.
--- NOTE | 2025-04-09 20:43 | PC.NURSE ---
Addendum entered by Yesenia Dominguez RN 04/09/25 20:53: Daughter Sonal also made mention that the patient has been taking 10mg Melatonin gummies at night to assist with sleep needs. ED provider made aware of updated home medication list and RN's request for review/continuation Original Note: RN received a call from the pt's daughter and self reported health care proxy Sonal. She confirmed that the number listed on file for her is inaccurate providing an updated number of [phone]. She was looking for an update and provided additional information regarding the pt's psychiatry appointment from earlier today as she states she is usually the family member/person who accompanies her to all of her appointments and primarily handles all her medical needs/stuff. The daughter reports that there were medication adjustments that can be listed/found below. Daughter states that she will present tomorrow with an updated health care proxy form as she reports the one on file is outdated and a new one has been completed. Daughter also expressed her desires to help getting the patient set up/secured with [facility] and was advised to follow up with case management and/or registration which she agreed to. Medication adjustments reported by Sonal: Risperidone 0.25 (scheduled) every morning with her escitalopram Risperidone 0.5mg (scheduled) every evening with her donepezil Risperidone 0.25mg PRN daily as needed for agitation and paranoia
[2025-04-09 21:05] LABS: MANUAL DIFF FLAG NO
[2025-04-09 21:06] LABS: Hematocrit 36.2 % (37.0-47.0); Hemoglobin 11.8 g/dl (12.0-16.0); Imm Gran Abs Auto 0.02 X10*3/uL (0.00-0.03); Imm Gran Pct Auto 0.3 % (0.0-0.4); Lymphocytes Absolute Auto 1.9 X10*3/uL (1.2-4.9); Mean Corpuscular HGB Conc 32.6 g/dl (31.0-35.0); Mean Corpuscular Hemoglobin 29.6 pg (27.0-33.0); Mean Corpuscular Volume 90.7 fL (80.0-98.0); NRBC Abs Auto 0.000 X10*3/uL (0.0-0.012); NRBC Pct Auto 0.0 /100WBC (0.0-0.2); Platelet Count 296 X10*3/uL (160-400); Red Blood Count 3.99 X10*6/uL (4.20-5.50); White Blood Count 6.5 X10*3/uL (4.8-10.8)
[2025-04-09 21:20] LABS: Alanine Aminotransferase 26 U/L (0-31); Albumin Level 4.4 g/dL (3.5-5.0); Alkaline Phosphatase 48 U/L (39-117); Anion Gap 11 (12-20); Aspartate Amino Transferase 46 U/L (5-31); Blood Urea Nitrogen 14 mg/dL (9-16); Calcium 9.6 mg/dL (8.4-10.2); Carbon Dioxide 31 mmol/L (22-29); Chloride 104 mmol/L (96-108); Creatinine Clr Calc Pharmacy 41.1; Estimated Glomerular Filt Rate 55; Potassium 3.6 mmol/L (3.3-5.1); Sodium 142 mmol/L (135-145); Total Protein 6.8 g/dL (6.5-8.0)
--- NOTE | 2025-04-09 22:20 | MHC.CM.ED ---
Per RN note. Patients daughter will be in tomorrow with updated HCP. CM will reach out to daughter tomorrow.
--- NOTE | 2025-04-10 01:16 | PC.NURSE ---
took over care at 23:00 pt sleeping no sign of distress at this time.
--- NOTE | 2025-04-10 03:29 | PC.NURSE ---
Took over care from MISHA Locke at 23:00, pt sleeping at this time. no sign of distress.
[2025-04-10 07:23] VITALS: BP 93/51; PULSE 72; RESP 12; TEMP 37.2; O2SAT 100
--- NOTE | 2025-04-10 07:42 | PC.NURSE ---
Assumed care, report received. Pt is awake and ate some of her breakfast. she is quiet and keeps to herself, she has made her bed and is just sitting in the dark, she is offered the TV.
--- NOTE | 2025-04-10 07:48 | PHA.MEDREC ---
Pharmacy Consult ? Medication Reconciliation Pharmacy has reviewed the medication reconciliation done by RN.
--- NOTE | 2025-04-10 11:58 | MHC.CM.ED ---
Pt holding in [facility] pending CARE team and psych eval for decsiion making capacity. Pt presented to ED after wandering from home: has life safety ankle bracelet. Garret from [facility] here to discuss pt's home environment: states his conversation w/both pt and spouse seem to indicate frustration between both parties and no clear solution. Garret states spouse installed door alarms which pt removes to exit the home. He feels she should not be prohibited from leaving if she chooses. Doubtful pt would qualify for placement: Medicare only with no qualifying stay, ambulatory without PT needs and not likely to qualify for [facility] d/t SSI income and assets. At this time, evals are pending and d/c planning will depend on the outcomes. Pt may benefit from an elder day care program if LTC placement is not possible. ED CM to follow
[2025-04-10 14:17] VITALS: BP 95/54; PULSE 69; RESP 12; TEMP 36.4; O2SAT 98
--- NOTE | 2025-04-10 18:13 | MHC.CM.ED ---
CM attempted to call daughter, Sonal, to update her on plan of care. Unable to leave a message, as her mailbox is full. Waiting for psych evaluation for capacity
--- NOTE | 2025-04-10 20:15 | MHC.CM.ED ---
New HCP on file. HCP#1/daughter Sonal Mcrae ([phone] and HCP #2/ Andrew Krause ([phone]).CM met with patient. Patient states she had no visitors today, but did speak with her in the morning. Pt wants to go home with her tomorrow.. CM verified with staff that patient did not have any visitors today. CM explained that patient was waiting to have a psych consult. Pt does remember meeting with Garret from [facility] when asked.
--- NOTE | 2025-04-10 20:19 | PC.NURSE ---
pts dt/hcp Sonal called to get an update on pt- stated she was waiting to hear back from RN CM. RN informed her per note that RN CM tried to call but was unable to leave a VM. RN transferred call to RN CM.
--- NOTE | 2025-04-10 21:33 | MHC.CM.ED ---
CM received call back from patient's daughter and HCP, Sonal Mcrae. CM had an extended conversation with Sonal. She is very worried and concerned about her mother. She was under the impression that he mother could go to respite, however, she has medicare and they do not pay for respite. Pt has a pending psych consult. On last admission, psych did not feel patient met criteria for IPLOC. Sonal feels her step father is doing the best he can, but he is stubborn and does not quite understand. She is very concerned that CM will discharge patient to home. Pt does not understand that it is not safe for her to walk in the reeves. She has diagnosed Alzheimer's dementia. Sonal is requesting a referral to financial services for help with MH application. CM explained that patients refused a referral to [facility] financial services last ED visit, stating that they would not qualify. Sonal tells CM that her step father is willing to meet with FS with her. CM will place a referral. This patient also only has Medicare and does not have a supplement, so they get billed the 20% that Medicare does not pay. CM encouraged Sonal to call Medicare, as it is open enrollment and to ask broad questions as to how to go about a supplement. CM did explain that most people pay a monthly fee for that insurance. Sonal was very upset and crying. CM gave contact information and explained that CM will reach out to her tomorrow.
[2025-04-10 21:44] VITALS: BP 98/50; PULSE 62; RESP 16; TEMP 36.4; O2SAT 99
--- NOTE | 2025-04-10 22:31 | PC.NURSE ---
Addendum entered by Rosalinda Clark RN 04/10/25 23:19: pt already sleeping. Addendum entered by Rosalinda Clark RN 04/10/25 23:17: pharmacy never delivered donepezil 10mg although they informed RN they would. Med not given. Original Note: Delay in med administration- RN waiting for pharmacy to deliver med that is not in [facility].
[2025-04-11 06:00] VITALS: BP 90/51; PULSE 66; RESP 16; O2SAT 99
--- NOTE | 2025-04-11 08:22 | PC.NURSE ---
Assumed care, report received. Pt is awake, she has eaten breakfast, she is pacing the unit and watching TV, she asks the plan for the day and wants to go home. She does say Andrew is not a nice man
--- NOTE | 2025-04-11 09:46 | MHC.CM.ED ---
Addendum entered by Anabel Hernandez 04/11/25 10:17: Spoke with Pippa at [facility] [place] Protective [facility]. Pippa can be reached via telephone at [phone] ext [phone]. Garret is out today. Pippa aware psych consult for capacity is pending. Original Note: Patient remains in ER. Psych consult for capacity pending. Continue to monitor for d/c needs.
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
--- NOTE | 2025-04-12 02:39 | PC.NURSE ---
Assumed care at 1845. Presents as calm and cooperative. Visible on the unit watching tv and speaking with peers. Adherent to HS scheduled medications. No PRN's utilized. No pain/discomfort reported. Able to make needs known and contracts for safety. 15 minute safety checks ongoing. Plan of care ongoing...
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
--- NOTE | 2025-04-12 08:13 | PC.NURSE ---
Assumed care, report received. Pt is awake and wandering as well exit seeking, she needs gentle redirection and is easily distracted.
[2025-04-12 08:28] VITALS: BP 91/44; PULSE 73; TEMP 36.8; O2SAT 99
--- NOTE | 2025-04-12 09:25 | MHC.CM.ED ---
Patient remains in pod. Per psych consult, HCP not invoked. Has capacity. Spoke with Pippa at [facility]. Copy of HCP and Psych consult for capacity sent via fax. [facility] will follow up with patient outpatient. Spoke with patient's daughter, Sonal, via telephone at [phone]. Above information provided to Sonal. Sonal became upset and stated she didn't feel patient could safely return home at this time. T/W explained patient was found to have the capacity to make her own decisions and patient wants to return home. Also explained [facility] would follow up at home. Sonal feels patient will end up back in the ER. Andrew and Sonal are not interested in placing patient in LTC but doesn't feel she is safe at home. T/W explained these were the onlly options at this time. T/W encouraged Sonal to reinforce the importance of working with [facility] Financial Counselor for [facility] application. Sonal will be on-site around 330-4pm to transport patient home. Patient, Mayra CABRAL and Caridad CROSS aware. Continue to monitor for d/c needs.
--- NOTE | 2025-04-12 10:14 | MHC.CM.ED ---
Received telephone call from patient's other daughter, Carito Mcrae. Carito can be reached via telephone at [phone]. Carito is upset that hospital is going to d/c home patient and does not feel it's a safe d/c. T/W explained patient was cleared by psych to have capacity. Also explained Sonal and Andrew were not interested in LTC at SNF and that patient was not agreeable to LTC placement. Carito questioning why patient was not admitted to hospital. T/W explained patient did not qualify for hospital or psych inpatient level of care. Carito concerned patient is not safe to d/c home. T/W explained Andrew would need to privately pay for help at home, privately pay for SNF placement or have increased help at home from family. Carito stated none of these choices were realistic or feasible. T/W explained choices were not ideal but only options available at this time, unless LTC placement was going to be pursued. Carito does not feel LTC placement is appropriate. Carito requesting additional psych eval. T/W explained additional psych eval is not appropriate. Carito stated the hospital was not doing anything to help my mom or concerned about her safety. T/W explained every time patient has come to the ER a work up was completed, psych consult for med recommendations were made and CM assisted to get patient set up with the [facility]'s office for a GPS monitor and have made referrals to [facility] to see if there is any other additional help available. Also referred to [facility] Financial Counselor to see if patient would qualify for [facility] for additional help in the community. Also explained none of these are quick processes. Carito continues to state her mother is not safe for d/c. T/W explained Carito is not listed as a proxy or emergency contact. Also explained Carito has no say in decision making and that patient was found to have capacity to make her own decisions and technically CM does not have to speak with Soanl or Andrew about d/c planning. Carito requesting to speak to T/W product design managerRuben Das from [employer] updated about Carito's concerns. Andrew on-site. Met with Amie and Andrew. Amie aware and agreeable that Sonal will transport patient home this afternoon. Spoke with Andrew privately. Above conversation explained to Andrew. Andrew does not feel patient is ready for lock expert care at this time. Andrew is agreeable to meet with Susanna of [facility] Financial Counselors to pursue [facility] for help in the community. Andrew aware that process of [facility] application is a long process. Mayra CABRAL and Caridad CROSS aware. Continue to monitor for d/c needs.
[2025-04-12 12:02] VITALS: BP 98/54; PULSE 70; RESP 18; TEMP 36.7; O2SAT 99
--- NOTE | 2025-04-12 16:04 | MHC.CM.ED ---
JAYA called and spoke with Andrew regarding assistance with MH application. Andrew is agreeable. Given Jocelyne Gant contact information [phone]. Explained the importance of completing the application. CM researched Adult Day Care in the area. JAYA spoke with Andrew explaining that Medicare does not pay for adult day care, some medicare advantage policies may and that Medicaid does. JAYA explained that average monthly costs to private pay range from $2200 to $2500. Andrew tells JAYA he does not have the funds for adult day care.
== END 2025-04-12 12:09 | disposition home or self-care (01) ==
PROVIDERS: Emergency Medicine; Emergency Provider Emergency Medicine
DX: G30.9 Alzheimer's disease, unspecified (principal); F02.80 Dementia in other diseases classified elsewhere, unspecified severity, without behavioral disturbance, psychotic disturbance, mood disturbance, and anxiety; Z79.899 Other long term (current) drug therapy
CPT/HCPCS: 36415; 80053; 80307; 81001; 85025; 99284; 99285

== ENCOUNTER → 2025-04-09 16:21 | Outpatient (BNV) | payer MEDICARE, SELFPAY | PROVIDERS: Emergency Provider Emergency Medicine; Visit Provider Psychiatry & Neurology Psychiatry | DX: G30.9 Alzheimer's disease, unspecified (principal); F02.80 Dementia in other diseases classified elsewhere, unspecified severity, without behavioral disturbance, psychotic disturbance, mood disturbance, and anxiety | CPT/HCPCS: 99284 ==

== ENCOUNTER 2025-04-19 19:26 | Emergency (ER) | payer MEDICARE, SELFPAY ==
[2025-04-19 19:57] VITALS: BMI 20.1
[2025-04-19 20:29] VITALS: BP 128/76; PULSE 67; RESP 18; TEMP 37.1; O2SAT 98
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
[2025-04-19 20:37] LABS: MANUAL DIFF FLAG NO
[2025-04-19 20:39] LABS: Hematocrit 37.1 % (37.0-47.0); Hemoglobin 12.2 g/dl (12.0-16.0); Imm Gran Abs Auto 0.04 X10*3/uL (0.00-0.03); Imm Gran Pct Auto 0.4 % (0.0-0.4); Lymphocytes Absolute Auto 1.2 X10*3/uL (1.2-4.9); Mean Corpuscular HGB Conc 32.9 g/dl (31.0-35.0); Mean Corpuscular Hemoglobin 30.0 pg (27.0-33.0); Mean Corpuscular Volume 91.2 fL (80.0-98.0); NRBC Abs Auto 0.000 X10*3/uL (0.0-0.012); NRBC Pct Auto 0.0 /100WBC (0.0-0.2); Platelet Count 284 X10*3/uL (160-400); Red Blood Count 4.07 X10*6/uL (4.20-5.50); White Blood Count 11.2 X10*3/uL (4.8-10.8)
[2025-04-19 20:57] LABS: Acetaminophen LAB < 3 mcg/mL (<30); Alanine Aminotransferase 25 U/L (0-31); Albumin Level 4.6 g/dL (3.5-5.0); Alkaline Phosphatase 47 U/L (39-117); Anion Gap 12 (12-20); Aspartate Amino Transferase 39 U/L (5-31); Blood Urea Nitrogen 20 mg/dL (9-16); Calcium 9.5 mg/dL (8.4-10.2); Carbon Dioxide 29 mmol/L (22-29); Chloride 104 mmol/L (96-108); Creatinine Clr Calc Pharmacy 54.7; Estimated Glomerular Filt Rate > 60; Potassium 3.9 mmol/L (3.3-5.1); Salicylate < 5.0 mg/dL (15-30); Sodium 141 mmol/L (135-145); Total Protein 7.2 g/dL (6.5-8.0)
--- OUTSIDE RECORDS SUMMARY | 2025-04-19 21:07 | XMS_ITS | Patient Health Record ---
Author Organization [facility] Address [address] [place] [address] Care Team Providers Care Corporate Associate Name Role Phone Mike Cobos Unavailable [phone] Reason For Referral No Information Plan Of Treatment No Information
[2025-04-19 21:12] LABS: Appearance Urine Clear; Glucose Urine UA Negative (Negative); PH 7.0 (5.0-9.0); Specific Gravity - Urine <= 1.005 (1.005-1.025)
[2025-04-19 21:22] LABS: Cannabinoid Screen Urine Not Detected (Not Detect)
--- NOTE | 2025-04-19 21:22 | MHC.CM.ED ---
Addendum entered by Nancy Hsu 04/19/25 21:29: Correction: Pt was seen in the ED for dementia and wandering on:03/08, 03/29, 03/31, 04/06, 04/12 and today, 04/19. [id number] Original Note: CM was notified that patient has returned to the ED after wandering in the [place] for over 2 hours. Labs ordered. CARE team consult ordered. May need psych consult for capacity. Pt has dementia. This is the fourth visit for wandering in the past 4-5 weeks. [facility] is following the patient. CM spoke briefly with patient. She tells me she and her are not communicating well and she left the home and went for a walk in the [place]. She does not understand the safety concerns of her wandering in the [place] with the cold weather and not being dressed appropriately for the weather. CM will follow when consulted.
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
--- NOTE | 2025-04-20 08:01 | PC.NURSE ---
Assumed care, report received. Pt is sleeping, she is brought breakfast and wakes briefly. she appears confused and rolls over and goes back to bed.
--- NOTE | 2025-04-20 08:32 | MHC.CM.ED ---
Patient remains in ER BH pod. Psych consult ordered and pending. Of note, last ER visit patient removed her GPS monitor from the [employer] department. Family was made aware that they would need to contact the [employer] department in order to get it replaced. Patient does not have GPS monitor at this time. CM consult will be on hold until psych consult is completed. Continue to monitor for d/c needs.
[2025-04-20 10:36] VITALS: BP 102/56; PULSE 65; RESP 14; TEMP 36.5; O2SAT 98
--- NOTE | 2025-04-20 17:03 | PC.NURSE ---
Pt was just evalated by Psyc. for capacity.
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
--- NOTE | 2025-04-20 17:58 | PHA.MEDREC ---
Pharmacy Consult ? Medication Reconciliation Pharmacy has completed the medication reconciliation. Pt poor historian and does not know her medications. Pt Risperidone LF 50mg BID 04/15 for 14 days, before that was 0.25mg 04/09 for 15 days; called pt pharmacy ([facility]) and they confirmed pt last picked up Rispiridone 0.5mg BID 04/15 and got 0.25mg on 04/09 along with Folic Acid 1mg and Vitamin B1 100mg QD; updated Risperidone and added Vitamin B1 and Folic Acid to med rec.
--- NOTE | 2025-04-20 18:07 | PHA.MEDREC ---
Addendum entered by Justus Zaldivar, PharmD 04/20/25 19:43: MED REC CHECKED BY [facility] Original Note: Pharmacy Consult ? Medication Reconciliation Pharmacy reviewed med rec done by nursing. Pt poor historian and does not know her medications. Pt Risperidone LF 50mg BID 04/15 for 14 days, before that was 0.25mg 04/09 for 15 days; called pt pharmacy ([facility]) and they confirmed pt last picked up Rispiridone 0.5mg BID 04/15 and got 0.25mg on 04/09 along with Folic Acid 1mg and Vitamin B1 100mg QD; updated Risperidone and added Vitamin B1 and Folic Acid to med rec.
[2025-04-21 06:24] VITALS: BP 92/63; PULSE 67; RESP 16; TEMP 36.3; O2SAT 97
--- NOTE | 2025-04-21 07:33 | PC.NURSE ---
Assumed care of patient at 0645, patient appears to be in no apparent distress this am, calm and cooperative, resting in bed at this time. Continue plan of care for psych consult
[2025-04-21 08:04] VITALS: BP 96/53; PULSE 67; RESP 12; TEMP 36.7; O2SAT 96
[2025-04-21 18:03] VITALS: BP 111/69; PULSE 64; RESP 12; TEMP 36.4; O2SAT 98
--- NOTE | 2025-04-21 18:05 | PC.NURSE ---
Pt has been calm and cooperative throughout the day, primarily keeping to herself, occasionally going out to the common area to watch TV. Pts daughter is on the way in at this time per pt
--- NOTE | 2025-04-21 18:57 | PC.NURSE ---
This typewriter mechanic assumed care of this Pt at this time. Pt awake, sitting in bed, daughter at bedside.
--- NOTE | 2025-04-21 19:44 | PC.NURSE ---
Per daughter, Pt takes trazodone at bedtime. Med added, provider made aware.
[2025-04-22 06:14] VITALS: BP 100/52; PULSE 57; RESP 15; TEMP 36.3; O2SAT 99
--- NOTE | 2025-04-22 07:10 | PC.NURSE ---
Assumed care of patient at 0645, patient appears to be in no apparent distress this am, calm and cooperative, resting in bed, offering no complaints to this RN. Continue plan of care for psych consult
[2025-04-22 14:34] VITALS: BP 108/52; PULSE 66; RESP 14; TEMP 36.7; O2SAT 99
--- NOTE | 2025-04-22 14:37 | PC.NURSE ---
Attempted to reach out to psychiatry to determine if full psych eval was complete so case management can continue their process, no answer from Psych provider AMERICA Narayan at this time
--- NOTE | 2025-04-22 15:19 | MHC.CARE ---
CARE Team consult removed. The patient was referred for psych consult and case management but will remain in the pod due to her wandering.?
[2025-04-22 19:51] VITALS: BP 129/70; PULSE 57; RESP 18; TEMP 36.2; O2SAT 100
--- NOTE | 2025-04-22 20:55 | PC.NURSE ---
Assumed care at 1845. Patient presents with labile mood. Approached t/w with irritable edge and stated I need to see the Doctor now for a shot to get rid of all the contamination in here. Patient oriented to environment and current plan of care. Politely, accepted HS scheduled medications, declined the need for additional PRN's. Denies SI/HI/AVH. Agreeable to alert staff if feeling unsafe. 15 minute safety checks ongoing. Awaiting psych consult...
[2025-04-23 06:45] VITALS: BP 95/51; PULSE 64; RESP 16; TEMP 36.9; O2SAT 97
--- NOTE | 2025-04-23 10:56 | HO.HCP ---
Health Care Proxy Invocation Health Care Proxy Declaration: Stephie Helene Laura____, on the date cited below, have determined that, Amie Krause, lacks the capacity to make or communicate, informed health care decision. This determination is made in accordance with accepted standards of medical judgment and pursuant to [place] 201[place], the [place] Health Care Proxy Law. The cause, nature, extent and probable duration of the patient's inapacity are described below: Cause:impaired ability to retain new information, impaired orientation affecting insight/judgment. Nature:Major Neurocognitive Disorder, AD Extent: complete Probable Duration of Patient's Incapacity:Not expected to be regained
[2025-04-23 11:41] VITALS: BP 95/51; PULSE 64; RESP 16; TEMP 36.9
--- NOTE | 2025-04-23 11:41 | MHC.CM.ED ---
Patient remains in ER BH pod. Psych consult completed. Patient does not have capacity. HCP invoked by James Narayan NP. Met with patient and , Andrew in regards to discharge planning. Patient is very well known to CM due to frequent ER visits. Patient, and 2 daughters are not interested in snf care placement. Patient had a GPS monitor from the [facility]. Patient removed it. Amie feels she's embarrassed to have it. Amie is able to recognize she has memory issues and this would an additional safety mechanism in case she has memory issues while walking. Patient already has an open case with Elder Protective Services. Garret will be made aware. Patient will return home with Andrew. Mayra CABRAL and Dr Land aware. Continue to monitor for d/c needs.
== END 2025-04-23 11:46 | disposition home or self-care (01) ==
PROVIDERS: Emergency Provider Emergency Medicine Emergency Medical Services
DX: G30.1 Alzheimer's disease with late onset (principal); F02.80 Dementia in other diseases classified elsewhere, unspecified severity, without behavioral disturbance, psychotic disturbance, mood disturbance, and anxiety; F05 Delirium due to known physiological condition; Z51.81 Encounter for therapeutic drug level monitoring; Z79.899 Other long term (current) drug therapy
CPT/HCPCS: 36415; 80053; 80143; 80179; 80307; 81003; 85025; 99284

== ENCOUNTER → 2025-04-19 20:58 | Outpatient (BNV) | payer MEDICARE, SELFPAY | PROVIDERS: Emergency Provider Emergency Medicine Emergency Medical Services; Visit Provider Social Worker | DX: G30.1 Alzheimer's disease with late onset (principal); F02.80 Dementia in other diseases classified elsewhere, unspecified severity, without behavioral disturbance, psychotic disturbance, mood disturbance, and anxiety | CPT/HCPCS: 99285 ==